=== PATIENT | male | born 1980 | race Two or more races ===

== ENCOUNTER → 2019-12-25 08:59 | Outpatient (BNVA) | payer MEDICAID, SELFPAY | PROVIDERS: PCP Family Medicine; Referring Provider Family Medicine; Visit Provider Nurse Practitioner Family | DX: G47.9 Sleep disorder, unspecified (principal); R06.83 Snoring; R07.9 Chest pain, unspecified; Z79.899 Other long term (current) drug therapy | CPT/HCPCS: 99202 ==

== ENCOUNTER → 2020-03-25 20:42 | Outpatient (REF) | payer MEDICAID, SELFPAY | LOC: HO.SL 20:42 | PROVIDERS: Visit Provider Nurse Practitioner Family | DX: G47.33 Obstructive sleep apnea (adult) (pediatric) (principal); R06.83 Snoring; G25.81 Restless legs syndrome | CPT/HCPCS: 95810 ==

== ENCOUNTER → 2020-04-08 10:54 | Outpatient (BNVA) | payer MEDICAID, SELFPAY | PROVIDERS: Visit Provider Nurse Practitioner Family ==

== ENCOUNTER 2020-05-20 14:34 | Outpatient (REF) | payer MEDICAID, SELFPAY ==
[2020-05-21 11:14] LABS: SARS COV2 PCR INHOUSE NEGATIVE (Negative)
== END 2020-05-20 14:35 | disposition home or self-care (01) ==
LOC: HO.LAB 14:34
PROVIDERS: Visit Provider Internal Medicine
DX: Z20.822 Contact with and (suspected) exposure to COVID-19 (principal)
CPT/HCPCS: C9803; U0003

== ENCOUNTER 2020-05-27 12:58 | Outpatient (REF) | payer MEDICAID, SELFPAY ==
[2020-05-27 13:22] LABS: COVID-19 Test Positive (Negative); IDNOW Serial# 55D5AD1C
== END 2020-05-27 12:59 | disposition home or self-care (01) ==
LOC: HO.LAB 12:58
PROVIDERS: Visit Provider Internal Medicine
DX: Z20.822 Contact with and (suspected) exposure to COVID-19 (principal)
CPT/HCPCS: 36415; 87635; C9803

== ENCOUNTER 2020-06-05 15:17 | Outpatient (REF) | payer MEDICAID, SELFPAY | END 2020-06-05 15:18 | disposition home or self-care (01) | LOC: HO.LAB 15:17 | PROVIDERS: Visit Provider Internal Medicine | DX: Z20.822 Contact with and (suspected) exposure to COVID-19 (principal) | CPT/HCPCS: C9803; U0003; U0005 ==

== ENCOUNTER → 2020-07-07 19:51 | Outpatient (REF) | payer MEDICAID, SELFPAY | LOC: HO.SL 19:51 | PROVIDERS: Visit Provider Nurse Practitioner Family | DX: G47.33 Obstructive sleep apnea (adult) (pediatric) (principal) | CPT/HCPCS: 95811 ==

== ENCOUNTER 2020-07-15 13:16 | Outpatient (REF) | payer MEDICAID, SELFPAY | END 2020-07-15 13:17 | disposition home or self-care (01) | LOC: HO.US 13:16 | PROVIDERS: Visit Provider Family Medicine | DX: Z13.89 Encounter for screening for other disorder (principal) ==

== ENCOUNTER → 2020-09-16 13:26 | Outpatient (BNVA) | payer MEDICAID, SELFPAY | PROVIDERS: PCP Emergency Medicine; Visit Provider Surgery Vascular Surgery | DX: I83.11 Varicose veins of right lower extremity with inflammation (principal) | CPT/HCPCS: 99202 ==

== ENCOUNTER 2020-10-28 13:01 | Outpatient (REF) | payer MEDICAID, SELFPAY ==
--- NOTE | ~2020-10-28 | US_ITS ---
EXAMINATION: BILATERAL LOWER EXTREMITY VENOUS ULTRASOUND (REFLUX EXAM) CLINICAL INDICATION: Lower extremity varicose veins. COMPARISON: None. TECHNIQUE: Color flow triplex imaging and compression Doppler was performed to evaluate both the deep and the superficial systems bilaterally. To evaluate the superficial system, the examination was performed in the upright position. Color-flow Doppler ultrasound and compression ultrasound were utilized. In addition, maneuvers were utilized to demonstrate reflux. FINDINGS: 1. DEEP VENOUS ULTRASOUND OF THE RIGHT LOWER EXTREMITY: Common Femoral Vein: Compressible, normal respiratory variation and augmented flow. Femoral vein: Compressible, normal color flow and augmentation. Popliteal Vein: Compressible, normal augmentation. Deep Reflux: There is no evidence of reflux in the deep system in either the common femoral vein or the popliteal vein. There is no evidence of a Joseph's cyst. 2. SUPERFICIAL ULTRASOUND WITH DOPPLER OF RIGHT LOWER EXTREMITY GREAT SAPHENOUS VEIN: The great saphenous vein ranges in size from 0.3 cm to 0.9 cm at the junction. There is no evidence of reflux. DUPLICATED GREAT SAPHENOUS VEIN: Lateral, 0.4 cm, no reflux. SMALL SAPHENOUS VEIN: 0.4 cm throughout, no evidence of reflux. VEIN OF GIACOMINI: None imaged. PERFORATORS: Proximal calf, 0.2 cm, no reflux. VARICOSITIES: None imaged. 3. DEEP VENOUS ULTRASOUND OF THE LEFT LOWER EXTREMITY: Common Femoral Vein: Compressible, normal respiratory variation and augmented flow. Femoral vein: Compressible, normal color flow and augmentation. Popliteal Vein: Compressible, normal augmentation. Deep Reflux: There is no evidence of reflux in the deep system in either the common femoral vein or the popliteal vein. There is no evidence of a Joseph's cyst. 4. SUPERFICIAL ULTRASOUND WITH DOPPLER OF LEFT LOWER EXTREMITY GREAT SAPHENOUS VEIN: The great saphenous vein ranges in size from 0.2 cm to 0.9 cm at the junction. There is segmental reflux below the knee up to 1.1 seconds. DUPLICATED GREAT SAPHENOUS VEIN: Medial, 0.3 cm, no reflux. SMALL SAPHENOUS VEIN: 0.4 cm in diameter throughout, no evidence of reflux. VEIN OF GIACOMINI: None imaged. PERFORATORS: [place], 0.1 cm, no reflux. Distal calf, 0.2 cm, no reflux. VARICOSITIES: Proximal calf, 0.3 cm, greater than 1.3 seconds of reflux. Distal calf, 0.3 cm, no evidence of reflux. US/US venous duplex LE BI IMPRESSION: 1. Segmental reflux within the left great saphenous vein below the knee. 2. No evidence of right great saphenous venous insufficiency. 3. Small saphenous venous insufficiency involving either leg. 4. Left lower extremity varicosities as above. 5. No evidence of DVT or deep venous insufficiency.
== END 2020-10-28 13:02 | disposition home or self-care (01) ==
LOC: HO.US 13:01
PROVIDERS: PCP Family Medicine; Visit Provider Surgery Vascular Surgery
DX: I83.893 Varicose veins of bilateral lower extremities with other complications (principal); I83.11 Varicose veins of right lower extremity with inflammation
CPT/HCPCS: 93970

== ENCOUNTER → 2020-11-11 13:05 | Outpatient (BNVA) | payer MEDICAID, SELFPAY | PROVIDERS: PCP Emergency Medicine; Referring Provider Family Medicine; Visit Provider Surgery Vascular Surgery | DX: I83.11 Varicose veins of right lower extremity with inflammation (principal); I89.0 Lymphedema, not elsewhere classified | CPT/HCPCS: 99212 ==

== ENCOUNTER → 2021-09-17 14:22 | Outpatient (BNVA) | payer MEDICAID, SELFPAY | PROVIDERS: PCP Emergency Medicine; Visit Provider Nurse Practitioner Family | DX: G47.33 Obstructive sleep apnea (adult) (pediatric) (principal); Z99.89 Dependence on other enabling machines and devices | CPT/HCPCS: 99212 ==

== ENCOUNTER 2021-11-27 15:13 | Outpatient (REF) | payer MEDICAID, SELFPAY ==
[2021-11-27 15:30] LABS: MANUAL DIFF FLAG NO
[2021-11-27 16:13] LABS: Basophils Absolute Auto 0.1 X10*3/uL (0.0-0.2); Basophils Percent Auto 0.8 % (0-2); Eosinophils Absolute Auto 0.5 X10*3/uL (0.0-0.4); Eosinophils Percent Auto 5.2 % (0-4); Hematocrit 37.8 % (42.0-52.0); Hemoglobin 12.5 g/dl (14.0-18.0); Imm Gran Abs Auto 0.06 X10*3/uL (0.00-0.03); Imm Gran Pct Auto 0.7 % (0.0-0.4); Lymphocytes Absolute Auto 1.7 X10*3/uL (1.2-4.9); Lymphocytes Percent Auto 18.5 % (20-40); Mean Corpuscular HGB Conc 33.1 g/dl (31.0-36.0); Mean Corpuscular Hemoglobin 29.5 pg (27.0-33.0); Mean Corpuscular Volume 89.2 fL (80.0-98.0); Mean Platelet Volume 10.1 fL (9.4-12.4); Monocytes Absolute Auto 0.8 X10*3/uL (0.1-1.2); Monocytes Percent Auto 8.5 % (2-11); Neutrophils Percent Auto 66.3 % (45-73); Platelet Count 309 X10*3/uL (160-400); Red Blood Count 4.24 X10*6/uL (4.60-5.80); Red Cell Distribution Width 12.3 % (11.0-16.0); White Blood Count 9.1 X10*3/uL (4.8-10.8)
[2021-11-27 16:14] LABS: Alanine Aminotransferase 40 U/L (0-40); Albumin Level 4.4 g/dL (3.5-5.0); Alkaline Phosphatase 107 U/L (39-117); Anion Gap 14 (12-20); Aspartate Amino Transferase 37 U/L (5-37); Bilirubin Total 0.3 mg/dL (0.0-1.0); Blood Urea Nitrogen 13 mg/dL (9-16); Calcium 9.7 mg/dL (8.4-10.2); Carbon Dioxide 26 mmol/L (22-29); Chloride 103 mmol/L (96-108); Estimated Average Glucose 137 mg/dL; Estimated Glomerular Filt Rate > 60; Glucose Random 112 mg/dL (60-115); Hemoglobin A1c % 6.4 %; Potassium 4.1 mmol/L (3.3-5.1); Sodium 139 mmol/L (135-145); Total Protein 7.6 g/dL (6.5-8.0)
[2021-11-27 17:01] LABS: Barbiturates, Urine Not Detected (Not Detect); Benzodiazepines Screen Urine Not Detected (Not Detect); Cannabinoid Screen Urine Not Detected (Not Detect); Fentanyl, urine POSITIVE (Not Detect); Opiate Screen Urine POSITIVE (Not Detect); Phencyclidine Screen Urine Not Detected (Not Detect)
[2021-11-27 17:14] LABS: Amphetamine Screen Urine Not Detected (Not Detect); Cocaine Screen Urine POSITIVE (Not Detect)
[2021-11-29 00:07] LABS: CRP High Sensitivity 6.2 mg/L
[2021-12-02 22:13] LABS: Cotinine, U 281 ng/mL; Nicotine, U 61 ng/mL
== END 2021-11-27 15:14 | disposition home or self-care (01) ==
LOC: HO.LAB 15:13
PROVIDERS: Visit Provider Surgery
DX: F10.20 Alcohol dependence, uncomplicated (principal); F11.20 Opioid dependence, uncomplicated; F17.200 Nicotine dependence, unspecified, uncomplicated; G47.33 Obstructive sleep apnea (adult) (pediatric); I83.11 Varicose veins of right lower extremity with inflammation; I89.0 Lymphedema, not elsewhere classified; K42.9 Umbilical hernia without obstruction or gangrene; R07.9 Chest pain, unspecified; E11.9 Type 2 diabetes mellitus without complications; Z71.6 Tobacco abuse counseling
CPT/HCPCS: 80053; 80307; 80323; 83036; 84134; 85025; 86141; 99202

== ENCOUNTER → 2021-12-28 13:08 | Outpatient (BNVA) | payer MEDICAID, SELFPAY | PROVIDERS: PCP Registered Nurse; Visit Provider Surgery Vascular Surgery | DX: M79.606 Pain in leg, unspecified (principal) | CPT/HCPCS: 99212 ==

== ENCOUNTER → 2022-02-04 13:00 | Outpatient (BNVA) | payer MEDICAID, SELFPAY | PROVIDERS: PCP Registered Nurse; Visit Provider Surgery | DX: D64.9 Anemia, unspecified (principal); E11.9 Type 2 diabetes mellitus without complications; F11.20 Opioid dependence, uncomplicated; F10.20 Alcohol dependence, uncomplicated; G47.33 Obstructive sleep apnea (adult) (pediatric); F17.200 Nicotine dependence, unspecified, uncomplicated; Z99.89 Dependence on other enabling machines and devices | CPT/HCPCS: 99212 ==

== ENCOUNTER 2022-03-08 12:06 | Emergency (ER) | payer MEDICAID, SELFPAY ==
--- NOTE | ~2022-03-08 | XR_ITS ---
EXAMINATION: XR CHEST CLINICAL INFORMATION: Wheezing and chest tightness COMPARISON: Chest radiograph and chest CT 08/31/2019 TECHNIQUE: Frontal view of the chest was obtained. FINDINGS: Heart size normal. There is no gross CHF. No pleural effusions are seen. In the right midlung, there is a new ovoid opacity seen, likely atelectasis. No gross consolidations with air bronchograms are seen. Some mild coarse reticular markings are seen similar to the prior chest CT. XR/XR chest 1V IMPRESSION: No acute intrathoracic disease. Right midlung atelectasis.
[2022-03-08 12:11] VITALS: BP 137/114; PULSE 103; RESP 24; TEMP 36.8; O2SAT 95; BMI 35.8
--- NOTE | 2022-03-08 12:17 | ECG_ITS ---
Test Reason : CP Blood Pressure : / mmHG Vent. Rate : 088 BPM Atrial Rate : 088 BPM P-R Int : 134 ms QRS Dur : 104 ms QT Int : 390 ms P-R-T Axes : 065 -05 056 degrees QTc Int : 471 ms Normal sinus rhythm Nonspecific ST abnormality Abnormal ECG When compared with ECG of 31-AUG-2019 04:04, No significant change was found Referred By: Ryan Garcia Electronically Signed By:STEFANY CABEZAS MD
--- NOTE | 2022-03-08 12:17 | ED_ITS ---
HPI - General Adult General Chief complaint: Dyspnea <MAMTA Lira - Last Filed: 03/08/22 19:25> Stated complaint: Diff Breathing Asthma Chest Discomfort <MAMTA Lira - Last Filed: 03/08/22 19:25> Time Seen by Provider: 03/08/22 12:36 <MAMTA Lira - Last Filed: 03/08/22 19:25> Source: patient, family and historic interpreter <Ana Vlileda MD - Last Filed: 03/08/22 14:23> Mode of arrival: ambulatory <Ana Villeda MD - Last Filed: 03/08/22 14:23> Limitations: no limitations <Ana Villeda MD - Last Filed: 03/08/22 14:23> History of Present Illness HPI narrative: 41-year-old male history of asthma came in for evaluation of nasal congestion and shortness of breath. No recent exposure to a sick contact. No fever, no chills. No recent travel, no lower extremity swelling or tenderness. <Ana Villeda MD - Last Filed: 03/08/22 14:23> Related Data Home medications: Home Medications Medication Instructions Recorded Confirmed pyridoxine (vitamin B6) 50 mg 50 mg PO DAILY 12/25/19 02/04/22 tablet thiamine HCl (vitamin B1) 100 mg 100 mg PO DAILY 12/25/19 02/04/22 tablet aspirin 81 mg chewable tablet 1 tab PO DAILY 11/27/21 02/04/22 atorvastatin 40 mg tablet 40 mg PO DAILY 11/27/21 02/04/22 cholecalciferol (vitamin D3) 50 50 mcg PO DAILY 11/27/21 02/04/22 mcg (2,000 unit) tablet furosemide 20 mg tablet 20 mg PO DAILY 11/27/21 02/04/22 losartan 50 mg tablet 50 mg PO DAILY 11/27/21 02/04/22 metformin 500 mg tablet 500 mg PO 11/27/21 02/04/22 Previous Rx's Medication Instructions Recorded albuterol sulfate 90 mcg/actuation 1 puff inhalation QID PRN 03/08/22 aerosol inhaler shortness of breath or wheezing #8.5 grams azithromycin 250 mg tablet See Rx Instructions PO .COMPLEX #6 03/08/22 (Zithromax Z-Eleno) tabs oxymetazoline 0.05 % nasal spray 2 spray intranasal Q12H PRN nasal 03/08/22 (Afrin Sinus (oxymetazoline)) congestion 3 days #22 mL prednisone 20 mg tablet 20 mg PO BID #10 tabs 03/08/22 <MAMTA Lira - Last Filed: 03/08/22 19:25> Allergies/adverse reactions: Allergies Allergy/AdvReac Type Severity Reaction Status Date / Time No Known Allergies Allergy Verified 02/04/22 13:09 <MAMTA Lira - Last Filed: 03/08/22 19:25> Review of Systems Review of Systems: All other systems are reviewed and are negative Constitutional: Reports as per HPI and Reports no additional constitutional complaints Eyes: Reports as per HPI and Reports no additional eye complaints Reports system reviewed and no additional complaints, except as documented Cardiovascular: Reports as per HPI and Reports no additional cardiovascular complaints Respiratory: Reports as per HPI and Reports no additional respiratory complaints Gastrointestinal: Reports as per HPI and Reports no additional gastrointestinal complaints Genitourinary: Reports no additional female genitourinary complaints Musculoskeletal: Reports no additional musculoskeletal complaints Skin/Breast: Reports system reviewed and no additional complaints, except as docu Psychiatric: Reports no additional psychiatric complaints Endocrine: Reports no additional endocrine complaints Hematologic/Lymphatic: Reports no additional hematologic/lymphatic complaints Allergic/Immunologic: Reports no additional allergic/immunologic complaints Reports system reviewed and no additional complaints, except as documented and Reports Abnormal speech present <Ana Villeda MD - Last Filed: 03/08/22 14:23> FOR[facility]LY [facility] Past Medical History Medical History: 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 <MAMTA Lira - Last Filed: 03/08/22 19:25> Surgical History: Surgical History History of ankle surgery <MAMTA Lira - Last Filed: 03/08/22 19:25> Social History Social History: Social History Household Members Other:: mom Housing: Apartment Alcohol intake: current Alcohol intake frequency: 3 or more drinks per day Alcohol type: beer and hard liquor Patient Tobacco Use Status: Current everyday Tobacco user Cigarettes Per Day: 2 Years Smoked: 20 Substance Use Type: Crack/Cocaine and Heroin Advance Directives: No Advance Directives Information Provided: Yes <MAMTA Lira - Last Filed: 03/08/22 19:25> Physical Exam ED Vital Signs: Vital Signs - 24 hr 03/08/22 12:11 03/08/22 12:39 03/08/22 14:20 Temperature 98.2 F Pulse Rate 103 H 101 H 89 Respiratory Rate 24 H 18 16 Blood Pressure 137/114 H 130/72 Pulse Oximetry 95 95 Oxygen Delivery Method Room Air Room Air BMI result Body Mass Index 35.8 <MAMTA Lira - Last Filed: 03/08/22 19:25> Vital Signs - 24 hr 03/08/22 12:11 03/08/22 12:39 03/08/22 14:20 Temperature 98.2 F Pulse Rate 103 H 101 H 89 Respiratory Rate 24 H 18 16 Blood Pressure 137/114 H 130/72 Pulse Oximetry 95 95 Oxygen Delivery Method Room Air Room Air BMI result Body Mass Index 35.8 Vital signs have been reviewed as appeared to be correct. Blood pressure normal. Heart rate normal. Respiration rate normal. Temperature normal. Oxygen saturation normal. <Ana Villeda MD - Last Filed: 03/08/22 14:23> Appearance: Alert. Oriented X3. No acute distress. Head: Normal external exam. Normocephalic. Atraumatic. No Dixon signs noted. No raccoon eyes noted Eyes: PERRLA. EOMI. Conjunctiva and sclera normal. Eyelids normal. ENT: TM's Normal. Pharynx normal. Uvula midline. Moist mucous membranes. No trismus noted. No drooling noted. No muffled voice noted. Bilateral maxillary sinuses tenderness with percussion. Neck: Normal inspection. Neck supple. FROM. No adenopathy. Thyroid Normal. No meningeal signs. No neck mass noted. CVS: Normal heart rate and rhythm. Heart sound normal. No murmurs noted. Pulses normal throughout. Respiratory: No respiratory distress. Painless inspiration. Breath sounds normal. No wheezes/rales/rhonchi noted. Chest nontender. No accessory muscle usage noted or decreased air movement noted. Abdomen: Soft and nontender. Bowel sounds normal in all 4 quadrants. No distention noted. No organomegaly noted. No visible injury noted. Back: No CVA tenderness. Full range of motion noted. Skin: Skin warm and dry. Normal skin color. Normal skin turgor. No rashes/lesions/lacerations noted. Extremities: No lower extremity edema. Extremities exhibit normal range of motion. Extremities nontender. Neuro: Oriented X 3. Cranial nerve exam: II-XII are grossly intact No motor deficit. No sensory deficit. Reflexes normal. <Ana Villeda MD - Last Filed: 03/08/22 14:23> Course Course Course Narrative: RME: 41 male presents to the ED for SOB with history of asthma, DM, and ChF with SOB. Lungs is tight with wheezing. Albuterol, prednisone, labs, and EKG ordered. Patient brought in to the ED by charge nurse <MAMTA Lira - Last Filed: 03/08/22 19:25> Reevaluation(s) Reevaluation #1: Patient feels better after was given bronchodilator therapy with prednisone, will discharge the patient with bronchodilator and short course of prednisone with Z-Eleno. <Ana Villeda MD - Last Filed: 03/08/22 14:23> Time: 14:14 <Ana Villeda MD - Last Filed: 03/08/22 14:23> Medications Administered Discontinued Medications Generic Name Dose Route Start Last Admin Trade Name Freq PRN Reason Stop Dose Admin Albuterol Sulfate 2.5 mg/ 0 mg 03/08/22 12:15 03/08/22 12:39 Ipratropium Duncan 0.5 mg INHALE 03/08/22 12:16 2.5 each ONCE ONE Administration Prednisone 60 mg 03/08/22 12:15 03/08/22 12:27 Prednisone 20 Mg Tablet PO 03/08/22 12:16 60 mg ONCE ONE Administration <MAMTA Lira - Last Filed: 03/08/22 19:25> Medications Administered Discontinued Medications Generic Name Dose Route Start Last Admin Trade Name Freq PRN Reason Stop Dose Admin Albuterol Sulfate 2.5 mg/ 0 mg 03/08/22 12:15 03/08/22 12:39 Ipratropium Duncan 0.5 mg INHALE 03/08/22 12:16 2.5 each ONCE ONE Administration Prednisone 60 mg 03/08/22 12:15 03/08/22 12:27 Prednisone 20 Mg Tablet PO 03/08/22 12:16 60 mg ONCE ONE Administration <Ana Villeda MD - Last Filed: 03/08/22 14:23> Medical Decision Making Differential Diagnosis Differential Diagnoses: The differential diagnosis associated with the presentation includes (Viral upper respiratory infection, pneumonia, asthma exacerbation.) <Ana vogt MD - Last Filed: 03/08/22 14:23> Lab Data MDM Lab Attestation statement: I reviewed the patient's lab results. <Ana Villeda MD - Last Filed: 03/08/22 14:23> Result Diagrams: 03/08/22 13:04 03/08/22 13:04 <MAMTA Lira - Last Filed: 03/08/22 19:25> Labs: Lab Results 03/08/22 03/08/22 03/08/22 Range/Units 12:35 13:04 13:04 WBC 9.5 (4.8-10.8) X10*3/uL RBC 4.29 L (4.60-5.80) X10*6/uL Hgb 12.9 L (14.0-18.0) g/dl Hct 38.5 L (42.0-52.0) % MCV 89.7 (80.0-98.0) fL MCH 30.1 (27.0-33.0) pg MCHC 33.5 (31.0-36.0) g/dl RDW 12.8 (11.0-16.0) % Plt Count 210 D (160-400) X10*3/uL MPV 10.2 (9.4-12.4) fL Immature Gran % (Auto) 0.5 H (0.0-0.4) % Neut % (Auto) 63.2 (45-73) % Lymph % (Auto) 19.3 L (20-40) % [place] % (Auto) 9.6 (2-11) % Eos % (Auto) 6.7 H (0-4) % Baso % (Auto) 0.7 (0-2) % Lymph # (Auto) 1.8 (1.2-4.9) X10*3/uL [place] # (Auto) 0.9 (0.1-1.2) X10*3/uL Eos # (Auto) 0.6 H (0.0-0.4) X10*3/uL Baso # (Auto) 0.1 (0.0-0.2) X10*3/uL Abs Immat Gran (auto) 0.05 H (0.00-0.03) X10*3/uL Absolute Neuts (auto) 6.0 (2.0-8.3) x10*3/uL Absolute Nucleated RBC 0.000 (0.0-0.012) X10*3/uL Nucleated RBC % (auto) 0.0 (0.0-0.2) /100WBC PT 10.9 (10.0-13.1) SEC INR 1.0 (0.9-1.1) APTT 29.7 (26.0-36.4) SEC Sodium (135-145) mmol/L Potassium (3.3-5.1) mmol/L Chloride (96-108) mmol/L Carbon Dioxide (22-29) mmol/L Anion Gap (12-20) BUN (9-16) mg/dL Creatinine (0.5-1.4) mg/dL Estim Creat Clear Calc Estimated GFR Random Glucose (60-115) mg/dL Calcium (8.4-10.2) mg/dL Total Bilirubin (0.0-1.0) mg/dL AST (5-37) U/L ALT (0-40) U/L Alkaline Phosphatase (39-117) U/L Troponin I High Sens (<3.5-35.0) ng/L B-Natriuretic Peptide (<100) pg/mL Total Protein (6.5-8.0) g/dL Albumin (3.5-5.0) g/dL Influenza Type A (PCR) NEGATIVE (Negative) Influenza Type B (PCR) NEGATIVE (Negative) RSV RNA Qual (PCR) NEGATIVE (Negative) SARS-CoV-2 RNA (RT-PCR) NEGATIVE (Negative) 03/08/22 03/08/22 03/08/22 Range/Units 13:04 13:04 13:04 WBC (4.8-10.8) X10*3/uL RBC (4.60-5.80) X10*6/uL Hgb (14.0-18.0) g/dl Hct (42.0-52.0) % MCV (80.0-98.0) fL MCH (27.0-33.0) pg MCHC (31.0-36.0) g/dl RDW (11.0-16.0) % Plt Count (160-400) X10*3/uL MPV (9.4-12.4) fL Immature Gran % (Auto) (0.0-0.4) % Neut % (Auto) (45-73) % Lymph % (Auto) (20-40) % [place] % (Auto) (2-11) % Eos % (Auto) (0-4) % Baso % (Auto) (0-2) % Lymph # (Auto) (1.2-4.9) X10*3/uL [place] # (Auto) (0.1-1.2) X10*3/uL Eos # (Auto) (0.0-0.4) X10*3/uL Baso # (Auto) (0.0-0.2) X10*3/uL Abs Immat Gran (auto) (0.00-0.03) X10*3/uL Absolute Neuts (auto) (2.0-8.3) x10*3/uL Absolute Nucleated RBC (0.0-0.012) X10*3/uL Nucleated RBC % (auto) (0.0-0.2) /100WBC PT (10.0-13.1) SEC INR (0.9-1.1) APTT (26.0-36.4) SEC Sodium 137 (135-145) mmol/L Potassium 4.3 (3.3-5.1) mmol/L Chloride 104 (96-108) mmol/L Carbon Dioxide 25 (22-29) mmol/L Anion Gap 12 (12-20) BUN 13 (9-16) mg/dL Creatinine 0.78 (0.5-1.4) mg/dL Estim Creat Clear Calc 158.5 Estimated GFR > 60 Random Glucose 143 H (60-115) mg/dL Calcium 9.1 D (8.4-10.2) mg/dL Total Bilirubin 0.4 (0.0-1.0) mg/dL AST 17 (5-37) U/L ALT 18 (0-40) U/L Alkaline Phosphatase 94 (39-117) U/L Troponin I High Sens < 3.5 (<3.5-35.0) ng/L B-Natriuretic Peptide < 10 (<100) pg/mL Total Protein 7.3 (6.5-8.0) g/dL Albumin 4.1 (3.5-5.0) g/dL Influenza Type A (PCR) (Negative) Influenza Type B (PCR) (Negative) RSV RNA Qual (PCR) (Negative) SARS-CoV-2 RNA (RT-PCR) (Negative) <MAMTA Lira - Last Filed: 03/08/22 19:25> Lab Results 03/08/22 03/08/22 03/08/22 Range/Units 12:35 13:04 13:04 WBC 9.5 (4.8-10.8) X10*3/uL RBC 4.29 L (4.60-5.80) X10*6/uL Hgb 12.9 L (14.0-18.0) g/dl Hct 38.5 L (42.0-52.0) % MCV 89.7 (80.0-98.0) fL MCH 30.1 (27.0-33.0) pg MCHC 33.5 (31.0-36.0) g/dl RDW 12.8 (11.0-16.0) % Plt Count 210 D (160-400) X10*3/uL MPV 10.2 (9.4-12.4) fL Immature Gran % (Auto) 0.5 H (0.0-0.4) % Neut % (Auto) 63.2 (45-73) % Lymph % (Auto) 19.3 L (20-40) % [place] % (Auto) 9.6 (2-11) % Eos % (Auto) 6.7 H (0-4) % Baso % (Auto) 0.7 (0-2) % Lymph # (Auto) 1.8 (1.2-4.9) X10*3/uL [place] # (Auto) 0.9 (0.1-1.2) X10*3/uL Eos # (Auto) 0.6 H (0.0-0.4) X10*3/uL Baso # (Auto) 0.1 (0.0-0.2) X10*3/uL Abs Immat Gran (auto) 0.05 H (0.00-0.03) X10*3/uL Absolute Neuts (auto) 6.0 (2.0-8.3) x10*3/uL Absolute Nucleated RBC 0.000 (0.0-0.012) X10*3/uL Nucleated RBC % (auto) 0.0 (0.0-0.2) /100WBC PT 10.9 (10.0-13.1) SEC INR 1.0 (0.9-1.1) APTT 29.7 (26.0-36.4) SEC Sodium (135-145) mmol/L Potassium (3.3-5.1) mmol/L Chloride (96-108) mmol/L Carbon Dioxide (22-29) mmol/L Anion Gap (12-20) BUN (9-16) mg/dL Creatinine (0.5-1.4) mg/dL Estim Creat Clear Calc Estimated GFR Random Glucose (60-115) mg/dL Calcium (8.4-10.2) mg/dL Total Bilirubin (0.0-1.0) mg/dL AST (5-37) U/L ALT (0-40) U/L Alkaline Phosphatase (39-117) U/L Troponin I High Sens (<3.5-35.0) ng/L B-Natriuretic Peptide (<100) pg/mL Total Protein (6.5-8.0) g/dL Albumin (3.5-5.0) g/dL Influenza Type A (PCR) NEGATIVE (Negative) Influenza Type B (PCR) NEGATIVE (Negative) RSV RNA Qual (PCR) NEGATIVE (Negative) SARS-CoV-2 RNA (RT-PCR) NEGATIVE (Negative) 03/08/22 03/08/22 03/08/22 Range/Units 13:04 13:04 13:04 WBC (4.8-10.8) X10*3/uL RBC (4.60-5.80) X10*6/uL Hgb (14.0-18.0) g/dl Hct (42.0-52.0) % MCV (80.0-98.0) fL MCH (27.0-33.0) pg MCHC (31.0-36.0) g/dl RDW (11.0-16.0) % Plt Count (160-400) X10*3/uL MPV (9.4-12.4) fL Immature Gran % (Auto) (0.0-0.4) % Neut % (Auto) (45-73) % Lymph % (Auto) (20-40) % [place] % (Auto) (2-11) % Eos % (Auto) (0-4) % Baso % (Auto) (0-2) % Lymph # (Auto) (1.2-4.9) X10*3/uL [place] # (Auto) (0.1-1.2) X10*3/uL Eos # (Auto) (0.0-0.4) X10*3/uL Baso # (Auto) (0.0-0.2) X10*3/uL Abs Immat Gran (auto) (0.00-0.03) X10*3/uL Absolute Neuts (auto) (2.0-8.3) x10*3/uL Absolute Nucleated RBC (0.0-0.012) X10*3/uL Nucleated RBC % (auto) (0.0-0.2) /100WBC PT (10.0-13.1) SEC INR (0.9-1.1) APTT (26.0-36.4) SEC Sodium 137 (135-145) mmol/L Potassium 4.3 (3.3-5.1) mmol/L Chloride 104 (96-108) mmol/L Carbon Dioxide 25 (22-29) mmol/L Anion Gap 12 (12-20) BUN 13 (9-16) mg/dL Creatinine 0.78 (0.5-1.4) mg/dL Estim Creat Clear Calc 158.5 Estimated GFR > 60 Random Glucose 143 H (60-115) mg/dL Calcium 9.1 D (8.4-10.2) mg/dL Total Bilirubin 0.4 (0.0-1.0) mg/dL AST 17 (5-37) U/L ALT 18 (0-40) U/L Alkaline Phosphatase 94 (39-117) U/L Troponin I High Sens < 3.5 (<3.5-35.0) ng/L B-Natriuretic Peptide < 10 (<100) pg/mL Total Protein 7.3 (6.5-8.0) g/dL Albumin 4.1 (3.5-5.0) g/dL Influenza Type A (PCR) (Negative) Influenza Type B (PCR) (Negative) RSV RNA Qual (PCR) (Negative) SARS-CoV-2 RNA (RT-PCR) (Negative) <Ana Villeda MD - Last Filed: 03/08/22 14:23> Independent Interpretation I performed an independent interpretation of an: Plain X-Ray (No acute intrathoracic pathology.) <Ana Villeda MD - Last Filed: 03/08/22 14:23> Radiology Impression Discussion of test interpretation with radiology: I have reviewed the radiologist's reading. <Ana Villeda MD - Last Filed: 03/08/22 14:23> Discharge Plan Discharge Clinical Impression: Acute bronchitis, Acute sinusitis <MAMTA Lira - Last Filed: 03/08/22 19:25> Patient Disposition: Home, Self-Care <MAMTA Lira - Last Filed: 03/08/22 19:25> Instructions: Acute Bronchitis (ED) <MAMTA Lira - Last Filed: 03/08/22 19:25> Prescriptions: New albuterol sulfate 90 mcg/actuation HFA aerosol inhaler 1 puff inhalation QID PRN (Reason: shortness of breath or wheezing) Qty: 8.5 0RF azithromycin [Zithromax Z-Eleno] 250 mg tablet See Rx Instructions .ROUTE .COMPLEX Qty: 6 0RF Rx Instructions: For 250 mg dose pack: take 500 mg today (day 1), then 250 mg for 4 days (days 2-5) prednisone 20 mg tablet 20 mg PO BID Qty: 10 0RF oxymetazoline [Afrin Sinus (oxymetazoline)] 0.05 % spray,non-aerosol 2 spray intranasal Q12H PRN (Reason: nasal congestion) 3 Days Qty: 22 0RF No Action pyridoxine (vitamin B6) 50 mg tablet 50 mg PO DAILY thiamine HCl (vitamin B1) 100 mg tablet 100 mg PO DAILY cholecalciferol (vitamin D3) 50 mcg (2,000 unit) tablet 50 mcg PO DAILY furosemide 20 mg tablet 20 mg PO DAILY aspirin 81 mg tablet,chewable 1 tab PO DAILY metformin 500 mg tablet 500 mg PO atorvastatin 40 mg tablet 40 mg PO DAILY losartan 50 mg tablet 50 mg PO DAILY <MAMTA Lira - Last Filed: 03/08/22 19:25> Referrals: [facility] [Primary Care Provider] - <MAMTA Lira - Last Filed: 03/08/22 19:25> Interventions: ED Discharge Assessment Last Done: 03/08/22 14:37 <MAMTA Lira - Last Filed: 03/08/22 19:25> Discharge Date/Time: 03/08/22 14:39 <MAMTA Lira - Last Filed: 03/08/22 19:25>
[2022-03-08] MEDS: predniSONE 20 MG TABLET 60 MG PO (12:27)
[2022-03-08 12:39] VITALS: PULSE 101; RESP 18; O2SAT 96
[2022-03-08 13:11] LABS: MANUAL DIFF FLAG NO
[2022-03-08 13:13] LABS: Basophils Absolute Auto 0.1 X10*3/uL (0.0-0.2); Basophils Percent Auto 0.7 % (0-2); Eosinophils Absolute Auto 0.6 X10*3/uL (0.0-0.4); Eosinophils Percent Auto 6.7 % (0-4); Hematocrit 38.5 % (42.0-52.0); Hemoglobin 12.9 g/dl (14.0-18.0); Imm Gran Abs Auto 0.05 X10*3/uL (0.00-0.03); Imm Gran Pct Auto 0.5 % (0.0-0.4); Lymphocytes Absolute Auto 1.8 X10*3/uL (1.2-4.9); Lymphocytes Percent Auto 19.3 % (20-40); Mean Corpuscular HGB Conc 33.5 g/dl (31.0-36.0); Mean Corpuscular Hemoglobin 30.1 pg (27.0-33.0); Mean Corpuscular Volume 89.7 fL (80.0-98.0); Mean Platelet Volume 10.2 fL (9.4-12.4); Monocytes Absolute Auto 0.9 X10*3/uL (0.1-1.2); Monocytes Percent Auto 9.6 % (2-11); Neutrophils Percent Auto 63.2 % (45-73); Platelet Count 210 X10*3/uL (160-400); Red Blood Count 4.29 X10*6/uL (4.60-5.80); Red Cell Distribution Width 12.8 % (11.0-16.0); White Blood Count 9.5 X10*3/uL (4.8-10.8)
[2022-03-08 13:21] LABS: Prothrombin Time 10.9 SEC (10.0-13.1)
[2022-03-08 13:23] LABS: Partial Thromboplastin Time 29.7 SEC (26.0-36.4)
[2022-03-08 13:30] LABS: Alanine Aminotransferase 18 U/L (0-40); Albumin Level 4.1 g/dL (3.5-5.0); Alkaline Phosphatase 94 U/L (39-117); Anion Gap 12 (12-20); Aspartate Amino Transferase 17 U/L (5-37); Bilirubin Total 0.4 mg/dL (0.0-1.0); Blood Urea Nitrogen 13 mg/dL (9-16); Calcium 9.1 mg/dL (8.4-10.2); Carbon Dioxide 25 mmol/L (22-29); Chloride 104 mmol/L (96-108); Creatinine Clr Calc Pharmacy 158.5; Estimated Glomerular Filt Rate > 60; Glucose Random 143 mg/dL (60-115); Potassium 4.3 mmol/L (3.3-5.1); Sodium 137 mmol/L (135-145); Total Protein 7.3 g/dL (6.5-8.0)
[2022-03-08 13:31] LABS: Influenza A PCR NEGATIVE (Negative); Influenza B PCR NEGATIVE (Negative); Resp Syncy Virus RNA Qual PCR NEGATIVE (Negative); SARS COV2 PCR INHOUSE NEGATIVE (Negative)
[2022-03-08 13:36] LABS: B Type Natriuretic Peptide < 10 pg/mL (<100)
[2022-03-08 13:39] LABS: Troponin-I High Sensitivity < 3.5 ng/L (<3.5-35.0)
[2022-03-08 14:20] VITALS: BP 130/72; PULSE 89; RESP 16; O2SAT 95
== END 2022-03-08 14:39 | disposition home or self-care (01) ==
PROVIDERS: Physician Assistant; Emergency Provider Emergency Medicine
DX: J20.9 Acute bronchitis, unspecified (principal); J01.00 Acute maxillary sinusitis, unspecified; R06.02 Shortness of breath; F17.210 Nicotine dependence, cigarettes, uncomplicated; Z20.822 Contact with and (suspected) exposure to COVID-19; Z20.828 Contact with and (suspected) exposure to other viral communicable diseases
CPT/HCPCS: 0241U; 36415; 71045; 80053; 83880; 84484; 85025; 85610; 85730; 93005; 94640; 99284

== ENCOUNTER 2022-05-11 02:02 | Emergency (ER) | payer MEDICAID, SELFPAY ==
--- NOTE | ~2022-05-11 | XR_ITS ---
EXAMINATION: XR CHEST CLINICAL INFORMATION: Dyspnea COMPARISON: None available. TECHNIQUE: Frontal view of the chest was obtained. FINDINGS: The lungs are well expanded. Patchy opacities of the right mid to lower lung. No pleural effusion or pneumothorax. The cardiomediastinal silhouette is within normal limits. XR/XR chest 1V IMPRESSION: Patchy opacities of the right mid to lower lung could be infectious or inflammatory.
[2022-05-11 02:13] VITALS: BP 138/75; PULSE 107; RESP 20; TEMP 36.9; O2SAT 93; BMI 34.2
--- NOTE | 2022-05-11 02:28 | ECG_ITS ---
Test Reason : SOB Blood Pressure : / mmHG Vent. Rate : 094 BPM Atrial Rate : 094 BPM P-R Int : 134 ms QRS Dur : 110 ms QT Int : 374 ms P-R-T Axes : 074 -18 026 degrees QTc Int : 467 ms Normal sinus rhythm Normal ECG No previous ECGs available Referred By: Generic ED Physician Electronically Signed By:STEFANY CABEZAS MD
[2022-05-11 02:47] LABS: MANUAL DIFF FLAG NO
[2022-05-11 02:55] LABS: Basophils Absolute Auto 0.1 X10*3/uL (0.0-0.2); Basophils Percent Auto 0.6 % (0-2); Eosinophils Percent Auto 8.8 % (0-4); Hematocrit 40.6 % (42.0-52.0); Hemoglobin 13.1 g/dl (14.0-18.0); Imm Gran Abs Auto 0.04 X10*3/uL (0.00-0.03); Imm Gran Pct Auto 0.4 % (0.0-0.4); Lymphocytes Absolute Auto 1.9 X10*3/uL (1.2-4.9); Mean Corpuscular HGB Conc 32.3 g/dl (31.0-36.0); Mean Corpuscular Hemoglobin 29.2 pg (27.0-33.0); Mean Corpuscular Volume 90.4 fL (80.0-98.0); Mean Platelet Volume 10.1 fL (9.4-12.4); Monocytes Absolute Auto 0.8 X10*3/uL (0.1-1.2); Monocytes Percent Auto 7.1 % (2-11); Neutrophils Absolute Auto 7.2 x10*3/uL (2.0-8.3); Neutrophils Percent Auto 66.1 % (45-73); Platelet Count 303 X10*3/uL (160-400); Red Blood Count 4.49 X10*6/uL (4.60-5.80); Red Cell Distribution Width 12.8 % (11.0-16.0)
--- OUTSIDE RECORDS SUMMARY | 2022-05-11 02:59 | XMS_ITS | Continuity of Care Document ---
:1980 Author Organization [facility] Address [address] [place] [id number] Care Team Providers Name Role Phone Mei GARCIA MD, [place] Primary Care Physician Encounter [facility] Date(s): 11/22/19 - 12/22/19 [facility] [address] [place] [id number]- [facility] Attending Physician: Yolanda Hoover Admitting Physician: AdmYolanda ram Referring Physician: AdmtrYolanda Allergies, Adverse Reactions, Alerts Substance Reaction Severity Status NKA Active Immunizations Given and Recorded Vaccine Date Status Refusal Reason pneumococcal 23-valent vaccine 09/08/19 Given Medications cloNIDine 0.1 mg oral tablet 0.1 mg, 1, tablet, By Mouth, 4 times a day, Refills 0, Maintenance, 09/13/19 15:02:00 EDT Start Date: 09/13/19 Status: OrderedFlomax 0.4 mg oral capsule 0.4 mg, 1, capsule, By Mouth, Daily, Refills 0, Maintenance, 09/13/19 14:05:00 EDT Start Date: 09/13/19 Status: Orderedfolic acid 1 mg oral tablet 1 mg, 1, tablet, By Mouth, Daily, Refills 0, Maintenance, 09/13/19 15:02:00 EDT Start Date: 09/13/19 Status: Orderedmethadone 5 mg oral tablet = 65 mg, By Mouth, Daily, 0 Refills, Maintenance, 10/18/19 8:05:00 EDT, Tablet, Partial fill upon patient request Start Date: 10/18/19 Status: OrderedMultivitamin Tablet 1 tablet, By Mouth, Daily, 0 Refills, Maintenance, 09/13/19 15:02:00 EDT, Tablet Start Date: 09/13/19 Status: OrderedPyridoxine Tablet 50 mg, By Mouth, Daily, Refills 0, Maintenance, 09/13/19 15:03:00 EDT Start Date: 09/13/19 Status: Orderedthiamine 100 mg oral tablet 100 mg, 1, tablet, By Mouth, 2 times a day, Refills 0, Maintenance, 09/13/19 15:03:00 EDT Start Date: 09/13/19 Status: OrderedtraZODone 50 mg oral tablet 50 mg, 1, tablet, By Mouth, Daily at bedtime, Refills 0, Maintenance, 09/13/19 14:05:00 EDT Start Date: 09/13/19 Status: OrderedWhile on antibiotic treatment - obtain weekly CBC with diff and CMP - fax to [phone] While on antibiotic treatment - obtain weekly CBC with diff and CMP - fax to [phone], See Instructions, # 1 each, Refills 0, Tot. Refills 0, Maintenance, CBC with differential and complete metabolic panel weekly, fax to [phone], attn Dr. Moreno ... Start Date: 09/17/19 Status: Ordered Problem List Condition Effective Dates Status Health Status Informant Opioid use disorder(Confirmed) Active Alcohol use disorder, severe, Active dependence(Confirmed)
--- OUTSIDE RECORDS SUMMARY | 2022-05-11 02:59 | XMS_ITS | Continuity of Care Document ---
:1980 Author Organization [facility] Address [address] [place] [phone]- Care Team Providers Name Role Phone Mei GARCIA MD, [place] Primary Care Physician Encounter [facility] [id number] Date(s): 08/31/19 - 09/01/[address] [address] Diagnosis Renal colic (Final) - 09/01/19 Discharge Disposition: A-D/C Home Attending Physician: Kaleb Hartley DO Admitting Physician: Kaleb Hartley DO Referring Physician: Not on Staff, Referring MD Allergies, Adverse Reactions, Alerts Substance Reaction Severity Status NKA Active Medications Flomax 0.4 mg oral capsule 0.4 mg, 1, capsule, By Mouth, Daily, # 14 capsule, Refills 0, Tot. Refills 0, Maintenance, 09/01/19 10:59:00 EDT, Route to Pharmacy Electronically, [facility] Start Date: 09/01/19 Status: Orderedibuprofen 400 mg oral tablet 400 mg, 1, tablet, By Mouth, Every 4 hours, PRN, for 14 days, # 84 tablet, Refills 0, Tot. Refills 0, Acute 09/15/19 11:00:00 EDT, for pain, 09/01/19 11:00:00 EDT, Route to Pharmacy Electronically, [facility] Start Date: 09/01/19 Stop Date: 09/15/19 Status: Orderedondansetron 4 mg oral tablet, disintegrating 1 tablet = 4 mg, By Mouth, Every 8 hours, PRN Nausea & Vomiting, # 10 tablet, 0 Refills, Maintenance, 09/01/19 10:59:00 EDT, Tablet, [facility] Start Date: 09/01/19 Status: OrderedTylenol Extra Strength 500 mg oral tablet 2 tablet = 1,000 mg, By Mouth, 3 times a day, PRN as needed for fever, for 14 days, # 84 tablet, 0 Refills, Acute 09/15/19 11:00:00 EDT, 09/01/19 11:00:00 EDT, Tablet, [facility] Start Date: 09/01/19 Stop Date: 09/15/19 Status: Ordered Results Orders for Microbiology Reports Name Date Blood Culture 09/01/19 Blood Culture #2 09/01/19 Microbiology Reports TEST:Blood Culture STATUS:Unauthenticated BODY SITE: SOURCE:Blood COLLECTED DATE/TIME:09/01/19 1:36 AMBlood Culture SPECIMEN DESCRIPTION : BLOOD R HAND SPECIAL REQUESTS : CRITICAL VALUE CALLED AND VERIFIED BY READBACK FOR: GRAM POSITIVE COCCI CALLED TO LUPE [id number] ER ON 09/02/19 0013 BY TECH [id number] CULTURE : GRAM POSITIVE COCCI REPORT STATUS : PRELIMINARY REPORT TEST:Blood Culture, Second Order STATUS:Unauthenticated BODY SITE: SOURCE:Blood COLLECTED DATE/TIME:09/01/19 1:36 AMBlood Culture, Second Order SPECIMEN DESCRIPTION : BLOOD LEFT HAND SPECIAL REQUESTS : CRITICAL VALUE CALLED AND VERIFIED BY READBACK FOR: GRAM [place] [id number] ER ON 09/01/194 BY TECH 5777 CULTURE : GRAM POSITIVE COCCI S. aureus was identified by multi-plex PCR. MecA NOT detected. The absence of the mecA gene is associated with susceptibility to methicillin (MSSA). REPORT STATUS : PRELIMINARY REPORT Radiology Reports Exam Date Time Procedure Performing Provider Status 09/01/19 1:34 AM Chest Portable Magdalena Shah; Auth (Verified) Notes:(Chest Portable) Reason For Exam: Shortness of BreathRESULT: Chest Portable Examination: Portable chest performed on 09/01/2019. History: Shortness of breath. Findings: A frontal view of the chest is submitted without comparison. The cardiac and mediastinal silhouettes are within normal limits. The lungs are clear. Osteophyte formation within the thoracic spine is demonstrated. IMPRESSION: There is no acute cardiopulmonary disease. WSN: [id number] Ordering Physician: Deyvi Nicholas Dictated By: Darcy Devine MD Dictated Date/Time: 09/01/19 10:39 a Reviewed By: Darcy Devine MD Signed By: Darcy Devine MD Signed Date/Time: 09/01/19 10:39 am Transcribed By: MAG Transcribed Date/Time: 09/01/19 10:38 am Vital Signs Most recent to oldest 1 2 3 [Reference Range]: Oxygen Saturation [94-100 %] 99 % 98 % 100 % (09/01/19 10:21 AM) (09/01/19 8:40 AM) (09/01/19 8: 14 AM) Pulse Rate [55-90 bpm] 90 bpm 85 bpm 76 bpm (09/01/19 10:21 AM) (09/01/19 8:40 AM) (09/01/19 8: 14 AM) Blood Pressure [90-138/55-84 148/91 mm Hg 149/81 mm Hg 133 /80 mm Hg mm Hg] *H* *H* (09/01/19 8:14 AM ) (09/01/19 10:21 AM) (09/01/19 8:40 AM) Respiratory Rate [16-30 19 br/min 16 br/min 17 br/mi n br/min] (09/01/19 10:21 AM) (09/01/19 8:40 AM) (09/01/19 8: 14 AM) Temperature [96.8-100.4 DegF] 98.4 DegF 98.3 DegF 99 .9 DegF (09/01/19 10:21 AM) (09/01/19 5:31 AM) (08/31/19 10 :52 PM) Mode of Delivery (Oxygen) Room air Room air Room a ir (09/01/19 10:21 AM) (09/01/19 8:40 AM) (09/01/19 8: 14 AM) Blood pressure sites Arm, right Arm, left Arm, right (09/01/19 10:21 AM) (09/01/19 8:40 AM) (08/31/19 10 :52 PM) Temperature Route Oral Oral Oral (09/01/19 10:21 AM) (09/01/19 5:31 AM) (08/31/19 10 :52 PM)
--- OUTSIDE RECORDS SUMMARY | 2022-05-11 02:59 | XMS_ITS | Continuity of Care Document ---
:1980 Author Organization [facility] Address [address] [place] [address]- Care Team Providers Name Role Phone Mei GARCIA MD, [place] Primary Care Physician [phone] Encounter [facility] ACCT R [id number] Date(s): 10/10/19 - 11/22/19 [facility] [address] [place] [address]- [facility] Attending Physician: Reese Moreno MD Admitting Physician: Reese Moreno MD Referring Physician: Mei GARCIA MD, Stanley Allergies, Adverse Reactions, Alerts Substance Reaction Severity [...] with diff and CMP - fax to [phone] While on antibiotic treatment - obtain weekly CBC with diff and CMP - fax to [phone], See Instructions, # 1 each, Refills 0, Tot. Refills 0, Maintenance, CBC with differential and complete metabolic panel weekly, fax to [phone], attn Dr. Moreno ... Start Date: 09/17/19 Status: Ordered Problem List Condition Effective Dates Status Health Status Informant Opioid use disorder(Confirmed) Active Alcohol use disorder, severe, Active dependence(Confirmed)
--- OUTSIDE RECORDS SUMMARY | 2022-05-11 02:59 | XMS_ITS | Continuity of Care Document ---
:1980 Author Organization [facility] Address [address] [place] [address]- Care Team Providers Name Role Phone Mei GARCIA MD, [place] Primary Care Physician Encounter [facility] Date(s): 10/05/19 - 10/18/[address] [address]- [facility] Encounter Diagnosis Bacteremia (Final) - 10/05/19 Discharge Disposition: A-Transfer SNF Attending Physician: Lalitha Galeana MD Admitting Physician: Alejandro Roberts MD Referring Physician: Not on Staff, Referring MD [...] 15:02:00 EDT, Tablet Start Date: 09/13/19 Status: Orderedpiperacillin-tazobactam 3 gm-0.375 gm/50 ml intravenous solution = 3.375 Gm, IV Infusion, Every 8 hours, for 7 days, # 500 mL, 0 Refills, Acute 10/25/19 8:07:00 EDT,10/18/19 8:07:00 EDT Start Date: 10/18/19 Stop Date: 10/25/19 Status: OrderedPyridoxine Tablet 50 mg, By Mouth, [...] with diff and CMP - fax to [phone] While on antibiotic treatment - obtain weekly CBC with diff and CMP - fax to [phone], See Instructions, # 1 each, Refills 0, Tot. Refills 0, Maintenance, CBC with differential and complete metabolic panel weekly, fax to [phone], attn Dr. Moreno ... Start Date: 09/17/19 Status: Ordered Problem List Condition Effective Dates Status Health Status Informant Opioid use disorder(Confirmed) Active Alcohol use disorder, severe, Active dependence(Confirmed) Results Orders for Microbiology Reports Name Date Blood Culture 10/05/19 Blood Culture #2 10/05/19 Microbiology Reports TEST:Blood Culture, Second Order STATUS:Auth (Verified) BODY SITE: SOURCE:Blood COLLECTED DATE/TIME:10/05/19 12:40 PMBlood Culture, Second Order SPECIMEN DESCRIPTION : BLOOD NO SITE SPECIAL REQUESTS : NONE CULTURE : NO GROWTH 5 DAYS. REPORT STATUS : FINAL 10/10/2019TEST:Blood Culture STATUS:Auth (Verified) BODY SITE: SOURCE:Blood COLLECTED DATE/TIME:10/05/19 12:14 PMBlood Culture SPECIMEN DESCRIPTION : BLOOD RIGHTAC SPECIAL REQUESTS : NONE CULTURE : NO GROWTH 5 DAYS. REPORT STATUS : FINAL 10/10/2019 Vital Signs Most recent to oldest 1 2 3 [Reference Range]: Height 178 cm 178 cm 178 cm (10/18/19 9:45 AM) (10/17/19 7:00 PM) (10/17/19 7:3 3 AM) Weight 108 kg 108.9 kg (10/05/19 4:17 PM) (10/05/19 3:41 PM) Oxygen Saturation [94-100 %] 98 % 99 % 100 % (10/18/19 9:45 AM) (10/17/19 7:00 PM) (10/17/19 7:3 3 AM) Pulse Rate [55-90 bpm] 112 bpm 99 bpm 109 bpm *H* *H* *H* (10/18/19 9:45 AM) (10/17/19 7:00 PM) (10/17/19 7:3 3 AM) Body Mass Index [18.5-24.99] 34.09 34.37 *>HHI* *>HHI* (10/05/19 4:17 PM) (10/05/19 3:41 PM) Blood Pressure [90-138/55-84 mm 130/80 mm Hg 113/68 mm Hg 122/78 mm Hg Hg] (10/18/19 9:45 AM) (10/17/19 7:00 PM) (10/17/19 7:3 3 AM) Respiratory Rate [16-30 br/min] 18 br/min 18 br/min 18 br/min (10/18/19 9:45 AM) (10/18/19 9:37 AM) (10/17/19 7:0 0 PM) Temperature [96.8-100.4 DegF] 98.2 DegF 98.5 DegF 99 .0 DegF (10/18/19 9:45 AM) (10/17/19 7:00 PM) (10/17/19 7:3 3 AM) Mode of Delivery (Oxygen) Room air Room air Room a ir (10/18/19 9:45 AM) (10/17/19 7:00 PM) (10/17/19 7:3 3 AM) Blood pressure sites Arm, right Arm, right Arm, right (10/18/19 9:45 AM) (10/17/19 7:00 PM) (10/17/19 7:3 3 AM) Temperature Route Oral Oral Oral (10/18/19 9:45 AM) (10/17/19 7:00 PM) (10/17/19 7:3 3 AM) Dry Weight 108.9 kg 109.3 kg 109.3 kg (10/05/19 3:41 PM) (10/05/19 2:02 PM) (10/04/19 4:0 7 PM) Weight Obtained Via Bed scale Bed scale (10/05/19 4:17 PM) (10/05/19 3:41 PM) Dry Weight Obtained Via Bed scale (10/05/19 3:41 PM)
--- OUTSIDE RECORDS SUMMARY | 2022-05-11 02:59 | XMS_ITS | Continuity of Care Document ---
:1980 Author Organization [facility] Address [address] [place] [address]- Care Team Providers Name Role Phone Mei GARCIA MD, [place] Primary Care Physician [place] [facility] [place] 09/27[place]19 - 12/08/19 [facility] [address] [place] [address]- [facility] Attending Physician: Reese Moreno MD Admitting Physician: [...] with diff and CMP - fax to [phone] While on antibiotic treatment - obtain weekly CBC with diff and CMP - fax to [phone], See Instructions, # 1 each, Refills 0, Tot. Refills 0, Maintenance, CBC with differential and complete metabolic panel weekly, fax to [phone], attn Dr. Moreno ... Start Date: 09/17/19 Status: Ordered Problem List Condition Effective Dates Status Health Status Informant Opioid use disorder(Confirmed) Active Alcohol use disorder, severe, Active dependence(Confirmed)
--- OUTSIDE RECORDS SUMMARY | 2022-05-11 02:59 | XMS_ITS | Continuity of Care Document ---
:1980 Author Organization [facility] Address [address] [place] [address]- Care Team Providers Name Role Phone Mei GARCIA MD, [place] Primary Care Physician Encounter [facility] Date(s): 10/23/19 - 12/22/19 [facility] [address] [place] [address]- [facility] Attending Physician: Reese Moreno MD Admitting Physician: [...] with diff and CMP - fax to [phone] While on antibiotic treatment - obtain weekly CBC with diff and CMP - fax to [phone], See Instructions, # 1 each, Refills 0, Tot. Refills 0, Maintenance, CBC with differential and complete metabolic panel weekly, fax to [phone], attn Dr. Moreno ... Start Date: 09/17/19 Status: Ordered Problem List Condition Effective Dates Status Health Status Informant Opioid use disorder(Confirmed) Active Alcohol use disorder, severe, Active dependence(Confirmed)
--- OUTSIDE RECORDS SUMMARY | 2022-05-11 02:59 | XMS_ITS ---
:1980 Author Care Team Providers Name Role Phone [facility] ([facility]) OTHER [phone] Allergies Code Code System Name Reaction Severity Status Onset NKDA ? Medications No Medications Reported Notes: Med list reviewed, may not be u p to date, see MAR Problems Name Status Onset Date Source ? Alcohol Dependence Active 09/18/2019 ? Opioid Dependence Active 09/18/2019 ? Insomnia Active 09/18/2019 ? Calculus of Kidney and Ureter Active 09/18/2019 ? Acute Osteomyelitis of Thoracic Spine Active 09/18/2019 ? Procedures None recorded. Results Lab Results None recorded. Past Encounters None recorded. Social History Tobacco Smoking Status Current Every Day Smoker Vaccine List None recorded. Plan of Care Reminders Provider Appointments None recorded. ? ? Lab None recorded. ? ? Referral None recorded. ? ? Procedures None recorded. ? ? Surgeries None recorded. ? ? Imaging None recorded. ? ? Vitals 09/19/2019 10:19AM Telemed Admitting H&P Blood Pressure 148/88 mm[Hg] 09/18/2019 08:35AM Initial Intake Note Blood Pressure 115/68 mm[Hg]
--- OUTSIDE RECORDS SUMMARY | 2022-05-11 02:59 | XMS_ITS | Continuity of Care Document ---
:1980 Author Organization [facility] Address [address] [place] [address]- Care Team Providers Name Role Phone Mei GARCIA MD, [place] Primary Care Physician [phone] [place] [facility] [place] 09/04/19 - 09/17/[address] [address] [facility] Encounter Diagnosis MSSA bacteremia (Final) - 09/03/19 MSSA bacteremia (Final) - 09/05/19 Discharge Disposition: A-Transfer SNF Attending Physician: Rona Vogel MD Admitting Physician: Papa Sharma MD Referring Physician: Not on Staff, Referring [...] 15:02:00 EDT Start Date: 09/13/19 Status: Orderedmethadone 10 mg/5 mL oral solution 25 mL = 50 mg, By Mouth, Daily, 0 Refills, Maintenance, 09/13/19 12:23:00 EDT, Solution, Partial fill upon patient request Start Date: 09/13/19 Status: OrderedMultivitamin Tablet 1 tablet, By Mouth, [...] with diff and CMP - fax to [phone] While on antibiotic treatment - obtain weekly CBC with diff and CMP - fax to [phone], See Instructions, # 1 each, Refills 0, Tot. Refills 0, Maintenance, CBC with differential and complete metabolic panel weekly, fax to [phone], attn Dr. Moreno ... Start Date: 09/17/19 Status: OrderedZosyn 3 gm-0.375 gm/50 ml intravenous solution = 3.375 Gm, IV Infusion, Every 8 hours, for 34 days, # 1 each, 0 Refills, Acute 10/17/19 16:04:00 EDT, 09/13/19 16:04:00 EDT Start Date: 09/13/19 Stop Date: 10/17/19 Status: Ordered Problem List Condition Effective Dates Status Health Status Informant Opioid use disorder(Confirmed) Active Alcohol use disorder, severe, Active dependence(Confirmed) Results Orders for Microbiology Reports Name Date Blood Culture 09/10/19 Blood Culture #2 09/10/19 Blood Culture 09/07/19 Blood Culture #2 09/07/19 Blood Culture 09/05/19 Blood Culture #2 09/05/19 Blood Culture 09/04/19 Blood Culture #2 09/04/19 Blood Culture #2 09/03/19 Microbiology Reports TEST:Blood Culture, Second Order STATUS:Auth (Verified) BODY SITE: SOURCE:Blood COLLECTED DATE/TIME:09/10/19 12:08 PMBlood Culture, Second Order SPECIMEN DESCRIPTION : BLOOD L HAND SPECIAL REQUESTS : NONE CULTURE : NO GROWTH 5 DAYS. REPORT STATUS : FINAL 09/15/2019TEST:Blood Culture STATUS:Auth (Verified) BODY SITE: SOURCE:Blood COLLECTED DATE/TIME:09/10/19 8:59 AMBlood Culture SPECIMEN DESCRIPTION : BLOOD RH SPECIAL REQUESTS : NONE CULTURE : NO GROWTH 5 DAYS. REPORT STATUS : FINAL 09/15/2019TEST:Blood Culture STATUS:Auth (Verified) BODY SITE: SOURCE:Blood COLLECTED DATE/TIME:09/07/19 6:43 AMBlood Culture SPECIMEN DESCRIPTION : BLOOD L SPECIAL REQUESTS : CRITICAL VALUE CALLED AND VERIFIED BY READBACK FOR: GRAM POSITIVE COCCI TO [id number],W47,09/08 AT 1525 BY TECH 155 CRITICAL VALUE CALLED AND VERIFIED BY READBACK FOR: POSITIVE BLOOD CULTURE W/GRAM NEGATIVE [place], [place] [id number], W4, 09/11/19 AT 0958 BY TECH 701. CULTURE : GRAM POSITIVE COCCI THE GRAM POSITIVE COCCI FAILED TO GROW FOR IDENTIFICATION AND SUSCEPTIBILITY TESTING. PREVOTELLA(BACTEROIDES) BUCCAE BETA LACTAMASE POSITIVE REPORT STATUS : FINAL 09/13/2019 ORGANISM PREVOTELLA(BACTEROIDES) BUCCAE BETA LACTAMASE POSITIVE METHOD ANO2 ETEST GRADIENT STRIP (MCG/ML) CLINDAMYCIN .094 SUSCEPTIBLE METRONIDAZOLE 1.0 SUSCEPTIBLETEST:Blood Culture, Second Order STATUS:Auth (Verified) BODY SITE: SOURCE:Blood COLLECTED DATE/TIME:09/07/19 6:43 AMBlood Culture, Second Order SPECIMEN DESCRIPTION : BLOOD NOSITE SPECIAL REQUESTS : NONE CULTURE : NO GROWTH 5 DAYS. REPORT STATUS : FINAL 09/12/2019TEST:Blood Culture, Second Order STATUS:Auth (Verified) BODY SITE: SOURCE:Blood COLLECTED DATE/TIME:09/05/19 1:59 PMBlood Culture, Second Order SPECIMEN DESCRIPTION : BLOOD R H SPECIAL REQUESTS : NONE CULTURE : NO GROWTH 5 DAYS. REPORT STATUS : FINAL 09/10/2019TEST:Blood Culture STATUS:Auth (Verified) BODY SITE: SOURCE:Blood COLLECTED DATE/TIME:09/05/19 12:14 PMBlood Culture SPECIMEN DESCRIPTION : BLOOD L ARM SPECIAL REQUESTS : NONE CULTURE : NO GROWTH 5 DAYS. REPORT STATUS : FINAL 09/10/2019TEST:Blood Culture STATUS:Auth (Verified) BODY SITE: SOURCE:Blood COLLECTED DATE/TIME:09/04/19 8:51 AMBlood Culture SPECIMEN DESCRIPTION : BLOOD RHAND SPECIAL REQUESTS : CRITICAL VALUE CALLED AND VERIFIED BY READBACK FOR: GRAM POSITIVE COCCI IN BLOOD CULTURE, TO W4, EMP [id number], BY TECH 187 AT 1200, 09/06/19. CULTURE : STAPHYLOCOCCUS AUREUS. REPORT STATUS : FINAL 09/08/2019 ORGANISM STAPHYLOCOCCUS AUREUS. METHOD MIN. INHIB. CONC. (MCG/ML) CIPROFLOXACIN SUSCEPTIBLE CLINDAMYCIN SUSCEPTIBLE ERYTHROMYCIN SUSCEPTIBLE LEVOFLOXACIN SUSCEPTIBLE OXACILLIN SUSCEPTIBLE PENICILLIN RESISTANT RIFAMPIN SUSCEPTIBLE RIFAMPIN RIFAMPIN SHOULD NOT BE USED ALONE FOR ANTIMICROBIAL RIFAMPIN THERAPY. TETRACYCLINE SUSCEPTIBLE TRIMETH/SULFAMETHOX SUSCEPTIBLE VANCOMYCIN SUSCEPTIBLETEST:Blood Culture, Second Order STATUS:Auth (Verified) BODY SITE: SOURCE:Blood COLLECTED DATE/TIME:09/04/19 8:51 AMBlood Culture, Second Order SPECIMEN DESCRIPTION : BLOOD LHAND SPECIAL REQUESTS : NONE CULTURE : NO GROWTH 5 DAYS. REPORT STATUS : FINAL 09/09/2019TEST:Blood Culture, Second Order STATUS:Auth (Verified) BODY SITE: SOURCE:Blood COLLECTED DATE/TIME:09/03/19 6:00 PMBlood Culture, Second Order SPECIMEN DESCRIPTION : BLOOD RHAND SPECIAL REQUESTS : CRITICAL VALUE CALLED AND VERIFIED BY READBACK FOR: GRAM POSITIVE COCCI TO [id number] AT 1220 09/04/19 AT [id number] BY 157. CULTURE : STAPHYLOCOCCUS AUREUS. REPORT STATUS : FINAL 09/06/2019 ORGANISM STAPHYLOCOCCUS AUREUS. METHOD MIN. INHIB. CONC. (MCG/ML) CIPROFLOXACIN SUSCEPTIBLE CLINDAMYCIN SUSCEPTIBLE ERYTHROMYCIN SUSCEPTIBLE LEVOFLOXACIN SUSCEPTIBLE OXACILLIN SUSCEPTIBLE PENICILLIN RESISTANT RIFAMPIN SUSCEPTIBLE RIFAMPIN RIFAMPIN SHOULD NOT BE USED ALONE FOR ANTIMICROBIAL RIFAMPIN THERAPY. TETRACYCLINE SUSCEPTIBLE TRIMETH/SULFAMETHOX SUSCEPTIBLE VANCOMYCIN SUSCEPTIBLERadiology Reports Exam Date Time Procedure Performing Provider Status 09/04/19 9:29 AM Ankle Min 3 Views Right Leonor Morton; Auth (V erified) Notes:(Ankle Min 3 Views Right) Reason For Exam: PainRESULT: Ankle Min 3 Views Right Ankle Min 3 Views Right Reason: Pain; Clinical Question(s): Osteomyelitis; Hx of Present Illness: staph Aureus in 2 blood cultures, c o left psoterior rib pain, denies fevers. COMPARISON: None. 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 Heterotopic ossification at the distal tib-fib syndesmosis and posterior aspect of the tibiotalar joint IMPRESSION: No radiographic evidence of osteomyelitis WSN: [id number] Ordering Physician: Ernestina Bazan Dictated By: Gui Moreno MD Dictated Date/Time: 09/04/19 10:49 a Reviewed By: Gui Moreno MD Signed By: Gui Moreno MD Signed Date/Time: 09/04/19 10:49 am Transcribed By: MAG Transcribed Date/Time: 09/04/19 10:45 am Exam Date Time Procedure Performing Provider Status 09/03/19 6:58 PM Chest 2 Views Frontal and Lat Maribel Bazan ; Laci (Verified) Notes:(Chest 2 Views Frontal and Lat) Reason For Exam: Shortness of Breath RESULT: Chest 2 Views Frontal and Lat Chest 2 Views Frontal and Lat Reason: Shortness of Breath; Clinical Question(s): Pneumonia; Hx of Present Illness: staph Aureus in2 blood cultures, c o left posterior rib pain, denies fevers COMPARISON: None. FINDINGS: LINES AND TUBES: None. LUNGS AND PLEURA: Clear lungs. Normal pulmonary vascularity. No pleural effusion. No pneumothorax. HEART, MEDIASTINUM AND ALEX: Heart is normal in size. Normal mediastinal and hilar contour. BONES AND SOFT TISSUES: No acute abnormality. IMPRESSION: No acute abnormality. WSN: [id number] Ordering Physician: Nigel Pederson Dictated By: John Ruelas MD Dictated Date/Time: 09/03/19 7:01 pm Reviewed By: John Ruelas MD Signed By: John Ruelas MD Signed Date/Time: 09/03/19 7:01 pm Transcribed By: MAG Transcribed Date/Time: 09/03/19 7:00 pm Vital Signs Most recent to oldest 1 2 3 [Reference Range]: Height 178 cm 178 cm 178 cm (09/17/19 7:45 AM) (09/17/19 12:46 AM) (09/16/19 8: 17 PM) Weight 108.5 kg (09/04/19 2:00 AM) Oxygen Saturation [94-100 %] 97 % 97 % 96 % (09/17/19 7:45 AM) (09/17/19 12:46 AM) (09/16/19 8: 17 PM) Pulse Rate [55-90 bpm] 73 bpm 85 bpm 104 bpm (09/17/19 7:45 AM) (09/17/19 12:46 AM) *H* (09/16/19 8:17 PM ) Body Mass Index [18.5-24.99] 34.24 *>HHI* (09/04/19 2:00 AM) Blood Pressure [90-138/55-84 113/75 mm Hg 94/55 mm Hg 135 /67 mm Hg mm Hg] (09/17/19 7:45 AM) (09/17/19 12:46 AM) (09/16/19 8: 17 PM) Respiratory Rate [16-30 16 br/min 20 br/min 20 br/mi n br/min] (09/17/19 10:34 AM) (09/17/19 7:45 AM) (09/17/19 12 :46 AM) Temperature [96.8-100.4 98.1 DegF 98.1 DegF 98.5 Deg F DegF] (09/17/19 7:45 AM) (09/17/19 12:46 AM) (09/16/19 8: 17 PM) Liters per Minute 0 L/min (09/04/19 2:00 AM) Mode of Delivery (Oxygen) Room air Room air Room a ir (09/17/19 7:45 AM) (09/17/19 12:46 AM) (09/16/19 8: 17 PM) Blood pressure sites Arm, left Arm, left Arm, left (09/17/19 7:45 AM) (09/16/19 4:00 PM) (09/16/19 8:0 0 AM) Temperature Route Oral Oral Oral (09/17/19 7:45 AM) (09/17/19 12:46 AM) (09/16/19 8: 17 PM) Dry Weight 108.5 kg (09/04/19 2:00 AM) Weight Obtained Via Bed scale (09/04/19 2:00 AM) Dry Weight Obtained Via Bed scale (09/04/19 2:00 AM)
[2022-05-11 03:04] LABS: COVID-19 Test Negative (Negative); IDNOW Serial# BCCEAD1C
[2022-05-11 03:06] LABS: Alanine Aminotransferase 19 U/L (0-40); Albumin Level 4.1 g/dL (3.5-5.0); Alkaline Phosphatase 102 U/L (39-117); Anion Gap 15 (12-20); Aspartate Amino Transferase 20 U/L (5-37); Bilirubin Total 0.3 mg/dL (0.0-1.0); Blood Urea Nitrogen 15 mg/dL (9-16); Calcium 9.1 mg/dL (8.4-10.2); Carbon Dioxide 25 mmol/L (22-29); Chloride 103 mmol/L (96-108); Creatinine Clr Calc Pharmacy 156.8; Estimated Glomerular Filt Rate > 60; Glucose Random 137 mg/dL (60-115); Sodium 139 mmol/L (135-145); Total Protein 7.5 g/dL (6.5-8.0)
[2022-05-11 03:12] LABS: B Type Natriuretic Peptide < 10 pg/mL (<100)
[2022-05-11 04:00] VITALS: BP 131/76; PULSE 97; RESP 18; TEMP 37; O2SAT 96
== END 2022-05-11 07:29 | disposition left against medical advice (07) ==
PROVIDERS: Emergency Provider Emergency Medicine
DX: R06.02 Shortness of breath (principal); R05.9 Cough, unspecified; Z20.822 Contact with and (suspected) exposure to COVID-19; Z20.828 Contact with and (suspected) exposure to other viral communicable diseases; Z79.899 Other long term (current) drug therapy
CPT/HCPCS: 71045; 80053; 83880; 85025; 87635; 93005; 99283

== ENCOUNTER 2023-02-01 11:44 | Outpatient (REF) | payer MEDICAID, SELFPAY ==
[2023-02-01 14:14] LABS: Basophils Absolute Auto 0.1 X10*3/uL (0.0-0.2); Basophils Percent Auto 1.1 % (0-2); Eosinophils Absolute Auto 0.4 X10*3/uL (0.0-0.4); Eosinophils Percent Auto 5.3 % (0-4); Hemoglobin 13.9 g/dl (14.0-18.0); Imm Gran Abs Auto 0.05 X10*3/uL (0.00-0.03); Imm Gran Pct Auto 0.8 % (0.0-0.4); Lymphocytes Absolute Auto 1.8 X10*3/uL (1.2-4.9); Lymphocytes Percent Auto 26.3 % (20-40); MANUAL DIFF FLAG SCAN; Mean Corpuscular HGB Conc 33.1 g/dl (31.0-36.0); Mean Corpuscular Volume 93.8 fL (80.0-98.0); Monocytes Absolute Auto 0.6 X10*3/uL (0.1-1.2); Monocytes Percent Auto 9.3 % (2-11); Neutrophils Absolute Auto 3.8 x10*3/uL (2.0-8.3); Neutrophils Percent Auto 57.2 % (45-73); PLT CLUMP 1; Red Blood Count 4.48 X10*6/uL (4.60-5.80); Red Cell Distribution Width 12.7 % (11.0-16.0); SCAN SMEAR FLAG 1
[2023-02-01 14:38] LABS: Alanine Aminotransferase 23 U/L (0-40); Albumin Level 4.4 g/dL (3.5-5.0); Alkaline Phosphatase 89 U/L (39-117); Anion Gap 17 (12-20); Aspartate Amino Transferase 26 U/L (5-37); Bilirubin Total 0.4 mg/dL (0.0-1.0); Blood Urea Nitrogen 13 mg/dL (9-16); C Reactive Protein 0.76 mg/dL (< or = 0.50); Carbon Dioxide 23 mmol/L (22-29); Chloride 103 mmol/L (96-108); Cholesterol 270 mg/dL (<200); Estimated Glomerular Filt Rate > 60; Glucose Random 123 mg/dL (60-115); HDL Cholesterol 65 mg/dL (>40); LDL Cholesterol Calculated 178 mg/dL (<100); Potassium 4.2 mmol/L (3.3-5.1); Sodium 139 mmol/L (135-145); Total Protein 8.4 g/dL (6.5-8.0); Triglycerides 137 mg/dL (<150)
[2023-02-01 14:45] LABS: Platelet Count 194 X10*3/uL (160-400); White Blood Count 6.7 X10*3/uL (4.8-10.8)
[2023-02-01 14:46] LABS: Creatinine Urine 156.65 mg/dL; Mean Platelet Volume 11.7 fL (9.4-12.4); Microalbum/Creatinine Ratio Ur 18.5 ug/mg cr (<30); SLIDE REVIEW VERIFIED
[2023-02-01 18:57] LABS: CT PCR NOT DETECTED (Not Detect.); NG PCR NOT DETECTED (Not Detect.)
[2023-02-02 08:51] LABS: HBc Num1 6.88 S/CO (0.00-0.79); HBsAGNum1 0.24 S/CO (0.00-0.99); HIV AB/AG Nonreactive (Nonreactive); HIV Num 1 0.04 S/CO (0.00-0.99); Hepatitis B Surface Antigen Negative (Negative); ~HepC Num1 0.12 S/CO (0.00-0.79); ~Hepatitis B Surface Antibody REACTIVE (Nonreactive); ~Hepatitis C Antibody Nonreactive (Nonreactive)
[2023-02-02 09:45] LABS: HBc Num2 7.13 S/CO; HBc Num3 6.82 S/CO
[2023-02-02 09:46] LABS: Hepatitis B Core Antibody Reactive (Nonreactive)
[2023-02-02 17:28] LABS: RPR Rapid Plasma Reagin NON-REACTIVE (NON-REACTIVE)
== END 2023-02-01 11:45 | disposition home or self-care (01) ==
LOC: HO.HHCL 11:44
PROVIDERS: Visit Provider Nurse Practitioner
DX: E11.51 Type 2 diabetes mellitus with diabetic peripheral angiopathy without gangrene (principal); I10 Essential (primary) hypertension; E78.5 Hyperlipidemia, unspecified; L03.818 Cellulitis of other sites; Z20.2 Contact with and (suspected) exposure to infections with a predominantly sexual mode of transmission
CPT/HCPCS: 0353U; 36415; 80053; 80061; 82043; 82570; 85025; 85652; 86140; 86592; 86704; 86706; 86803; 87340; 87389

== ENCOUNTER 2023-03-18 14:19 | Outpatient (REF) | payer MEDICAID, SELFPAY ==
[2023-03-18 16:27] LABS: INTERNATIONAL NORM RATIO 0.9 (0.9-1.1); Prothrombin Time 10.7 SEC (11.1-13.3)
[2023-03-23 09:48] LABS: TS Negative Control PASSED; TS Panel A 0; TS Panel B 0; TS Positive Control PASSED; TSpotTB Negative (NEGATIVE)
[2023-03-24 16:29] LABS: FIB-ALT 16 U/L (9-46); FIB-Alpha-2-Macroglobulin 110 mg/dL (106-279); FIB-Apolipoprotein A1 216 mg/dL (94-176); FIB-GGT 97 U/L (3-95); FIB-Haptoglobin 284 mg/dL (43-212); FIB-Total Bilirubin 0.3 mg/dL (0.2-1.2); Liver Fibrosis Score 0.02; Liver Fibrosis Stage F0; Nec Inflam Act Grade A0; Nec Inflam Act Score 0.04
== END 2023-03-18 14:20 | disposition home or self-care (01) ==
LOC: HO.HHCL 14:19
PROVIDERS: Visit Provider Emergency Medicine
DX: F11.20 Opioid dependence, uncomplicated (principal)
CPT/HCPCS: 36415; 81596; 85610; 86481

== ENCOUNTER 2023-03-20 00:27 | Emergency (ER) | payer MEDICAID, SELFPAY ==
--- NOTE | ~2023-03-20 | CT_ITS ---
EXAMINATION: CT ABDOMEN AND PELVIS WITH CONTRAST GI BLEED CLINICAL INFORMATION: Lower abdominal pain, blood per rectum COMPARISON: 10/14/2021 TECHNIQUE: Initial noncontrast imaging of the abdomen/pelvis. Multidetector volumetric images were obtained from the superior aspect of the liver through the pubic symphysis following administration 85 mL of Omnipaque 350 intravenous contrast in arterial and delayed phases. Sagittal and coronal reformatted images were obtained on the technologist's workstation. This CT examination was performed using dose optimization techniques as appropriate, variously including the following: *Automated exposure control *Adjustment of mA and/or kV according to patient size (this includes techniques or standardized protocols for targeted exams where dose is matched to indication/reason for exam; i.e. extremities or head) *Use of iterative reconstruction technique DLP: 1391 mGy-cm FINDINGS: LUNG BASES: Suboptimally assessed due to motion artifact. LIVER, GALLBLADDER, AND BILIARY TREE: The liver is normal in size, shape, and attenuation. No focal hepatic lesion or biliary ductal dilatation is present. The gallbladder is unremarkable. PANCREAS: Unremarkable. SPLEEN: Unremarkable. ADRENAL GLANDS: Unremarkable. KIDNEYS AND URETERS: No hydronephrosis bilaterally. There is mild to moderate dilation of some segments of the mid and distal ureters bilaterally, with no obstructing calculus seen; appearance is similar to prior. There are multiple calyceal calculi bilaterally measuring up to 8 mm. BLADDER: Unremarkable. GASTROINTESTINAL TRACT: No active gastrointestinal hemorrhage is seen. No evidence of bowel obstruction or significant wall thickening. Mildly hyperdense fluid is present in the descending colon, for which blood products cannot be excluded. The appendix is unremarkable. No free fluid or free air is seen. ABDOMINAL WALL: No significant hernia is appreciated. LYMPH NODES: Enlarged bilateral inguinal lymph nodes are similar to prior. VASCULAR: Mild scattered atherosclerotic calcification. PELVIC VISCERA: Unremarkable. OSSEOUS STRUCTURES: Scattered degenerative changes in the spine. CT/CT gi bleed abd pel wo/w IVcon IMPRESSION: 1. No active gastrointestinal hemorrhage identified. Mildly hyperdense fluid in the descending colon, for which blood products cannot be excluded. 2. Multiple bilateral renal calculi. No hydronephrosis. 3. Mild to moderate dilation of some segments of the mid and distal ureters bilaterally, with no obstructing calculus seen. This is of uncertain clinical significance and is similar to prior. 4. Enlarged bilateral inguinal lymph nodes, also similar to prior.
[2023-03-20 00:39] VITALS: BP 123/74; PULSE 118; RESP 22; TEMP 36.8; O2SAT 94; BMI 34.4
[2023-03-20 01:47] VITALS: BP 141/94; PULSE 114; RESP 14; TEMP 36.6; O2SAT 95
[2023-03-20 02:08] LABS: Basophils Absolute Auto 0.1 X10*3/uL (0.0-0.2); Basophils Percent Auto 0.7 % (0-2); Eosinophils Absolute Auto 0.3 X10*3/uL (0.0-0.4); Eosinophils Percent Auto 4.9 % (0-4); Hematocrit 40.9 % (42.0-52.0); Hemoglobin 13.3 g/dl (14.0-18.0); Imm Gran Abs Auto 0.02 X10*3/uL (0.00-0.03); Imm Gran Pct Auto 0.3 % (0.0-0.4); Lymphocytes Absolute Auto 1.5 X10*3/uL (1.2-4.9); Lymphocytes Percent Auto 22.5 % (20-40); MANUAL DIFF FLAG SCAN; Mean Corpuscular HGB Conc 32.5 g/dl (31.0-36.0); Mean Corpuscular Hemoglobin 30.1 pg (27.0-33.0); Mean Corpuscular Volume 92.5 fL (80.0-98.0); Mean Platelet Volume 10.6 fL (9.4-12.4); Monocytes Absolute Auto 0.5 X10*3/uL (0.1-1.2); Monocytes Percent Auto 7.3 % (2-11); Neutrophils Absolute Auto 4.3 x10*3/uL (2.0-8.3); Neutrophils Percent Auto 64.3 % (45-73); PLT CLUMP 1; Red Blood Count 4.42 X10*6/uL (4.60-5.80); Red Cell Distribution Width 12.7 % (11.0-16.0); SCAN SMEAR FLAG 1
[2023-03-20 02:10] LABS: Platelet Count 91 X10*3/uL (160-400); White Blood Count 6.7 X10*3/uL (4.8-10.8)
[2023-03-20 02:20] LABS: Alanine Aminotransferase 23 U/L (0-40); Albumin Level 4.1 g/dL (3.5-5.0); Alkaline Phosphatase 80 U/L (39-117); Anion Gap 18 (12-20); Aspartate Amino Transferase 27 U/L (5-37); Bilirubin Total 0.2 mg/dL (0.0-1.0); Blood Urea Nitrogen 11 mg/dL (9-16); Calcium 9.5 mg/dL (8.4-10.2); Carbon Dioxide 19 mmol/L (22-29); Chloride 103 mmol/L (96-108); Creatinine Clr Calc Pharmacy 151.8; Estimated Glomerular Filt Rate > 60; Glucose Random 112 mg/dL (60-115); Potassium 4.2 mmol/L (3.3-5.1); Sodium 136 mmol/L (135-145); Total Protein 8.2 g/dL (6.5-8.0)
[2023-03-20 02:33] LABS: SLIDE REVIEW VERIFIED
--- NOTE | 2023-03-20 02:52 | ED.GIBLEED ---
HPI - GI Bleed General Chief complaint: GI Bleed Stated complaint: blood in urine Time Seen by Provider: 03/20/23 02:51 Source: patient and family Mode of arrival: ambulatory Limitations: language barrier (Patient's 1st language is Nigerien, he speaks some Azeri, theoretical physics teacher used) History of Present Illness HPI Narrative: 42-year-old male with a history of diabetes mellitus, anemia, obstructive sleep apnea, alcohol alcohol use disorder, opiate use disorder, cocaine use disorder who presents emergency department for evaluation of bright red blood per rectum. Patient states that he felt like he had to pass gas and instead past bright red blood per rectum. He states this is 1st episode of bleeding per rectum. He states that he did have mild left lower abdominal pain which started today. He does not have a history of hemorrhoids. He denied any weight loss but he states that he has gained weight. The patient does drink 2 6 packs of beer per day and 5-7 nips of Smirnoff vodka per day. Patient also uses intranasal heroin and cocaine daily. He has not had a colonoscopy. He is not aware of any family history of colon cancer. Related Data Home Medications Medication Instructions Recorded Confirmed pyridoxine (vitamin B6) 50 mg 50 mg PO DAILY 12/25/19 02/04/22 tablet thiamine HCl (vitamin B1) 100 mg 100 mg PO DAILY 12/25/19 02/04/22 tablet aspirin 81 mg chewable tablet 1 tab PO DAILY 11/27/21 02/04/22 atorvastatin 40 mg tablet 40 mg PO DAILY 11/27/21 02/04/22 cholecalciferol (vitamin D3) 50 50 mcg PO DAILY 11/27/21 02/04/22 mcg (2,000 unit) tablet furosemide 20 mg tablet 20 mg PO DAILY 11/27/21 02/04/22 losartan 50 mg tablet 50 mg PO DAILY 11/27/21 02/04/22 metformin 500 mg tablet 500 mg PO 11/27/21 02/04/22 Previous Rx's Medication Instructions Recorded albuterol sulfate 90 mcg/actuation 1 puff inhalation QID PRN 03/08/22 aerosol inhaler shortness of breath or wheezing #8.5 grams azithromycin 250 mg tablet See Rx Instructions PO .COMPLEX #6 03/08/22 (Zithromax Z-Eleno) tabs oxymetazoline 0.05 % nasal spray 2 spray intranasal Q12H PRN nasal 03/08/22 (Afrin Sinus (oxymetazoline)) congestion 3 days #22 mL prednisone 20 mg tablet 20 mg PO BID #10 tabs 03/08/22 hydrocortisone 2.5 % topical cream 1 appl NJ BID #30 grams 03/20/23 with perineal applicator (Proctozone-HC) Allergies Allergy/AdvReac Type Severity Reaction Status Date / Time No Known Allergies Allergy Verified 03/20/23 00:39 Review of Systems Review of Systems: Yes all other systems are reviewed and are negative [facility] Past Medical History [facility] Narrative: Past medical history: Diabetes mellitus, anemia, obstructive sleep apnea, alcohol use disorder, opiate use disorder, cocaine use disorder. Social history: He does smoke cigarettes. He drinks 2 6 packs of beer per day. He drinks 5-7 nips of Smirnoff vodka per day. Patient uses intranasal cocaine and heroin daily. 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 Surgical History History of ankle surgery Social History Social History (System 01/31/23 @ 15:04 by Marta Tolliver) Household Members Other:: mom Housing: Apartment Alcohol intake: current Alcohol intake frequency: 3 or more drinks per day Alcohol type: beer and hard liquor Patient Tobacco Use Status: Current everyday Tobacco user Cigarettes Per Day: 2 Years Smoked: 20 Substance Use Type: Crack/Cocaine and Heroin Advance Directives: No Advance Directives Information Provided: No Physical Exam Vital Signs: Vital Signs: Last Vital Signs Temp 97.6 F 03/20/23 05:03 Pulse 88 03/20/23 05:03 Resp 14 03/20/23 05:03 BP 139/85 03/20/23 05:03 Pulse Ox 95 03/20/23 05:03 O2 Del Method Room Air 03/20/23 05:03 BMI result Body Mass Index 34.4 Vital signs were normal Exam: General: Awake, alert in no distress Head: Normocephalic, atraumatic EENT: PERRL, Lids normal, sclera normal, conjunctiva normal, nose normal , ears normal, throat without erythema or exudates Neck: Supple, no adenopathy, no trachea midline or C-spine tenderness Lung: breath sounds symmetric, no wheezing, rales or rhonchi Chest: symmetric movement, nontender Heart: regular rate and rhythm, normal S1, S2 no murmurs or rubs Abdomen: soft, obese, mild left lower quadrant tenderness, nondistended, normal bowel sounds Rectal: Normal rectal tone, large amount of dark red stool in rectum, Hemoccult-positive Back: no vertebral tenderness, no CVAT Extremities: no deformities, moves all extremities symmetrically Neuro: Awake, alert, oriented, normal speech, cranial nerves intact, moves all extremities symmetrically Psych: Pleasant, cooperative Medications Administered Discontinued Medications Generic Name Dose Route Start Last Admin Trade Name Freq PRN Reason Stop Dose Admin Sodium Chloride 1,000 mls @ 999 mls/hr 03/20/23 03:12 03/20/23 03:42 Ns IV 03/20/23 04:12 999 mls/hr .Q1H1M STA Administration Iohexol 85 ml 03/20/23 04:17 03/20/23 04:18 Iohexol 350 Mg/Ml 100 Ml Infus..Btl IV 03/20/23 04:18 85 ml ONCE ONE Administration Medical Decision Making Medical Decision Making MDM Narrative: 42-year-old male with history diabetes mellitus, anemia, obstructive sleep apnea, alcohol use disorder, opiate use disorder, cocaine use disorder who presents emergency department for evaluation of bright red blood per rectum. Patient also is complaining of abdominal pain. Vital signs were normal. Examination did reveal mild left lower quadrant tenderness large amount of dark red blood per rectum. Differential diagnosis includes but is not limited to hemorrhoidal bleed, polyp bleed, colon cancer, AVM, acute diverticular bleed, coagulopathy Following evaluation was ordered: CBC, CMP, PT/INR, PTT, alcohol level, drug screen, lipase, CT GI bleed abdomen pelvis with without IV contrast, pulse ox monitoring, cardiac monitoring Patient was treated with the following: normal saline IV x1 L. 05:14 My interpretation patient's laboratory evaluation is as follows: H&H was normal 13 and 40.9. Platelet count was low 91,000. Repeat H&H (1 hour 30 minutes) was 13.5 and 40.8. Coags were normal. CMP was normal. Lipase was normal. Ethanol was 49. CT abdomen GI protocol with and without contrast did not reveal any active bleed but did reveal mildly hyperdense fluid in the descending colon which could be consistent with blood. Given the negative CT scan and the fact that the patient's H&H did not drop, I suspect the patient has lower GI bleed most likely caused by hemorrhoids or polyp. Patient will be started on Proctozone 2.5% hemorrhoid cream twice a day and after each bowel movement. Patient was advised to follow-up with his PCP for re-evaluation and return if his symptoms get worse. Admission/Observation Consideration of admission/observation: Escalation of care including admission/observation considered Lab Data MDM Lab Attestation statement: I reviewed the patient's lab results. 03/20/23 03:36 03/20/23 02:00 Labs: Lab Results 03/20/23 03/20/23 03/20/23 Range/Units 02:00 03:36 04:17 WBC 6.7 (4.8-10.8) X10*3/uL RBC 4.42 L (4.60-5.80) X10*6/uL Hgb 13.3 L 13.5 L (14.0-18.0) g/dl Hct 40.9 L 40.8 L (42.0-52.0) % MCV 92.5 (80.0-98.0) fL MCH 30.1 (27.0-33.0) pg MCHC 32.5 (31.0-36.0) g/dl RDW 12.7 (11.0-16.0) % Plt Count 91 L D (160-400) X10*3/uL MPV 10.6 (9.4-12.4) fL Immature Gran % (Auto) 0.3 (0.0-0.4) % Neut % (Auto) 64.3 (45-73) % Lymph % (Auto) 22.5 (20-40) % Wetzel % (Auto) 7.3 (2-11) % Eos % (Auto) 4.9 H (0-4) % Baso % (Auto) 0.7 (0-2) % Lymph # (Auto) 1.5 (1.2-4.9) X10*3/uL Wetzel # (Auto) 0.5 (0.1-1.2) X10*3/uL Eos # (Auto) 0.3 (0.0-0.4) X10*3/uL Baso # (Auto) 0.1 (0.0-0.2) X10*3/uL Abs Immat Gran (auto) 0.02 (0.00-0.03) X10*3/uL Absolute Neuts (auto) 4.3 (2.0-8.3) x10*3/uL Absolute Nucleated RBC 0.000 (0.0-0.012) X10*3/uL Nucleated RBC % (auto) 0.0 (0.0-0.2) /100WBC Smear Tech's Comments VERIFIED PT 12.0 (11.1-13.3) SEC INR 1.0 (0.9-1.1) APTT 30.6 (26.0-36.4) SEC Sodium 136 (135-145) mmol/L Potassium 4.2 (3.3-5.1) mmol/L Chloride 103 (96-108) mmol/L Carbon Dioxide 19 L (22-29) mmol/L Anion Gap 18 (12-20) BUN 11 (9-16) mg/dL Creatinine 0.79 (0.5-1.4) mg/dL Estim Creat Clear Calc 151.8 Estimated GFR > 60 Random Glucose 112 (60-115) mg/dL Calcium 9.5 (8.4-10.2) mg/dL Total Bilirubin 0.2 (0.0-1.0) mg/dL AST 27 (5-37) U/L ALT 23 (0-40) U/L Alkaline Phosphatase 80 (39-117) U/L Total Protein 8.2 H (6.5-8.0) g/dL Albumin 4.1 (3.5-5.0) g/dL Lipase 13 (8-78) U/L Ethyl Alcohol 49 mg/dL Blood Type O Positive Antibody Screen NEGATIVE Radiology Impression Discussion of test interpretation with radiology: I have reviewed the radiologist's reading. Radiologist Impression: CT gi bleed abd pel wo/w IVcon IMPRESSION: 1. No active gastrointestinal hemorrhage identified. Mildly hyperdense fluid in the descending colon, for which blood products cannot be excluded. 2. Multiple bilateral renal calculi. No hydronephrosis. 3. Mild to moderate dilation of some segments of the mid and distal ureters bilaterally, with no obstructing calculus seen. This is of uncertain clinical significance and is similar to prior. 4. Enlarged bilateral inguinal lymph nodes, also similar to prior. Dictated By: Jefferson Charles MD Independent Historian Clinical information obtained from an independent historian. History obtained from or confirmed by: Spouse Chronic Conditions Patient?s care impacted by: Other (Opiate use disorder, alcohol use disorder, cocaine use disorder) Discharge Plan Discharge Clinical Impression: Acute lower gastrointestinal bleeding, Thrombocytopenia, Alcohol use disorder, Heroin use, Cocaine use Patient Disposition: Home, Self-Care Instructions: Rectal Bleeding (ED) Additional Instructions: Your hemoglobin was normal and your repeat hemoglobin 2 hours after being in the emergency department was also normal pain You did have blood in your rectum on your rectal exam. The CT scan of your abdomen pelvis looking for GI bleed was normal which is reassuring. At this time I suspect that your blood in your rectum is due to a hemorrhoid or to a bleeding polyp. Your platelet count was low and this is most likely caused by your alcohol or drug use. It is important that you get help with your alcohol and drug use disorders, you should talk to your doctor about getting into an alcohol treatment program and possibly getting on medications that reduce your desire to drink alcohol Use the Proctozone 2.5% cream with the applicator twice a day and after each bowel movement Follow-up with your doctor in 2 days. Please return to the emergency department if your symptoms get worse or if you develop any symptoms that are concerning to you. Prescriptions: New hydrocortisone [Proctozone-HC] 2.5 % cream with perineal applicator 1 appl NJ BID Qty: 30 0RF No Action albuterol sulfate 90 mcg/actuation HFA aerosol inhaler 1 puff inhalation QID PRN (Reason: shortness of breath or wheezing) Qty: 8.5 0RF azithromycin [Zithromax Z-Eleno] 250 mg tablet See Rx Instructions .ROUTE .COMPLEX Qty: 6 0RF Rx Instructions: For 250 mg dose pack: take 500 mg today (day 1), then 250 mg for 4 days (days 2-5) prednisone 20 mg tablet 20 mg PO BID Qty: 10 0RF oxymetazoline [Afrin Sinus (oxymetazoline)] 0.05 % spray,non-aerosol 2 spray intranasal Q12H PRN (Reason: nasal congestion) 3 Days Qty: 22 0RF pyridoxine (vitamin B6) 50 mg tablet 50 mg PO DAILY thiamine HCl (vitamin B1) 100 mg tablet 100 mg PO DAILY cholecalciferol (vitamin D3) 50 mcg (2,000 unit) tablet 50 mcg PO DAILY furosemide 20 mg tablet 20 mg PO DAILY aspirin 81 mg tablet,chewable 1 tab PO DAILY metformin 500 mg tablet 500 mg PO atorvastatin 40 mg tablet 40 mg PO DAILY losartan 50 mg tablet 50 mg PO DAILY
[2023-03-20 03:31] LABS: Lipase 13 U/L (8-78)
[2023-03-20] MEDS: 0.9 % Sodium Chloride 1,000 ML 999 ML IV (03:42)
[2023-03-20 03:52] LABS: Hematocrit 40.8 % (42.0-52.0); Hemoglobin 13.5 g/dl (14.0-18.0)
[2023-03-20 03:58] LABS: Partial Thromboplastin Time 30.6 SEC (26.0-36.4)
[2023-03-20 04:12] LABS: Ethanol 49 mg/dL
[2023-03-20] MEDS: iohexoL 350 MG/ML 100 ML INFUS..BTL 85 ML IV (04:18)
[2023-03-20 05:03] VITALS: BP 139/85; PULSE 88; RESP 14; TEMP 36.4; O2SAT 95
[2023-03-20 06:24] LABS: Amphetamine Screen Urine Not Detected (Not Detect); Barbiturates, Urine Not Detected (Not Detect); Benzodiazepines Screen Urine Not Detected (Not Detect); Cannabinoid Screen Urine Not Detected (Not Detect); Cocaine Screen Urine POSITIVE (Not Detect); Fentanyl, urine POSITIVE (Not Detect); Opiate Screen Urine POSITIVE (Not Detect); Phencyclidine Screen Urine Not Detected (Not Detect)
== END 2023-03-20 06:14 | disposition home or self-care (01) ==
PROVIDERS: Emergency Provider Emergency Medicine Emergency Medical Services
DX: K92.2 Gastrointestinal hemorrhage, unspecified (principal); F11.10 Opioid abuse, uncomplicated; F14.10 Cocaine abuse, uncomplicated; D69.6 Thrombocytopenia, unspecified; R10.32 Left lower quadrant pain; R10.2 Pelvic and perineal pain; F10.129 Alcohol abuse with intoxication, unspecified; Y90.2 Blood alcohol level of 40-59 mg/100 ml; F10.10 Alcohol abuse, uncomplicated; F17.210 Nicotine dependence, cigarettes, uncomplicated; Z79.899 Other long term (current) drug therapy
CPT/HCPCS: 36415; 74178; 80053; 80307; 83690; 85014; 85018; 85025; 85610; 85730; 86850; 86900; 86901; 99285; Q9967

== ENCOUNTER 2023-11-23 11:57 | Outpatient (REF) | payer MEDICAID, SELFPAY ==
[2023-11-23 13:47] LABS: MANUAL DIFF FLAG NO
[2023-11-23 14:01] LABS: Basophils Absolute Auto 0.1 X10*3/uL (0.0-0.2); Eosinophils Absolute Auto 0.4 X10*3/uL (0.0-0.4); Eosinophils Percent Auto 4.7 % (0-4); Hematocrit 40.8 % (42.0-52.0); Hemoglobin 13.4 g/dl (14.0-18.0); Imm Gran Abs Auto 0.03 X10*3/uL (0.00-0.03); Imm Gran Pct Auto 0.4 % (0.0-0.4); Lymphocytes Absolute Auto 2.3 X10*3/uL (1.2-4.9); Lymphocytes Percent Auto 27.8 % (20-40); Mean Corpuscular HGB Conc 32.8 g/dl (31.0-36.0); Mean Corpuscular Hemoglobin 30.2 pg (27.0-33.0); Mean Corpuscular Volume 92.1 fL (80.0-98.0); Mean Platelet Volume 10.4 fL (9.4-12.4); Monocytes Absolute Auto 0.7 X10*3/uL (0.1-1.2); Monocytes Percent Auto 8.5 % (2-11); Neutrophils Absolute Auto 4.7 x10*3/uL (2.0-8.3); Neutrophils Percent Auto 57.6 % (45-73); Platelet Count 281 X10*3/uL (160-400); Red Blood Count 4.43 X10*6/uL (4.60-5.80); Red Cell Distribution Width 13.2 % (11.0-16.0); White Blood Count 8.1 X10*3/uL (4.8-10.8)
[2023-11-23 14:21] LABS: Alanine Aminotransferase 13 U/L (0-40); Albumin Level 4.2 g/dL (3.5-5.0); Alkaline Phosphatase 88 U/L (39-117); Anion Gap 13 (12-20); Aspartate Amino Transferase 18 U/L (5-37); Bilirubin Total 0.3 mg/dL (0.0-1.0); Blood Urea Nitrogen 13 mg/dL (9-16); Calcium 9.2 mg/dL (8.4-10.2); Carbon Dioxide 25 mmol/L (22-29); Chloride 102 mmol/L (96-108); Cholesterol 238 mg/dL (<200); Estimated Glomerular Filt Rate > 60; Glucose Random 128 mg/dL (60-115); HDL Cholesterol 61 mg/dL (>40); LDL Cholesterol Calculated 140 mg/dL (<100); Sodium 136 mmol/L (135-145); Total Protein 7.9 g/dL (6.5-8.0); Triglycerides 187 mg/dL (<150)
[2023-11-23 14:36] LABS: Creatinine Urine 182.54 mg/dL; Microalbum/Creatinine Ratio Ur 9.8 ug/mg cr (<30)
== END 2023-11-23 11:58 | disposition home or self-care (01) ==
LOC: HO.HHCL 11:57
PROVIDERS: Visit Provider Nurse Practitioner
DX: E11.51 Type 2 diabetes mellitus with diabetic peripheral angiopathy without gangrene (principal)
CPT/HCPCS: 36415; 80053; 80061; 82043; 82570; 85025

== ENCOUNTER 2024-01-16 13:29 | Outpatient (AMB) | payer MEDICAID, SELFPAY ==
--- NOTE | 2024-01-16 13:31 | MHC.OFFVIS ---
Vital Signs 01/16/24 13:38 Height 5 ft 11 in Weight 243 lb BMI 33.9 BP 134/75 Blood Pressure Location Rt brachial Position Sitting Pulse 89 Intake Visit Reasons: abdominal hernia Intake Note: Patient referred by pcp Vidya Kang DIRECTOR OF PLANNING for abdominal hernia. Present for 2yrs. Patient c/o: abdomninal pain. Denies nausea, diarrhea. Vice President Business & Corporate Development Required: Yes Vice President Business & Corporate Development Name: Abby PEREIRA Accompanied by: Self / Same As Patient Allergies No Known Allergies Allergy (Verified 01/16/24 13:36) HPI Comments Details: Patient presents for evaluation of a symptomatic enlarging umbilical hernia. He has had this for years time. His increasing in size. He would like to have it repaired. He has no other GI issues or complaints. Does occasional strenuous activities. Chart was reviewed and patient evaluated [facility] 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 Surgical History History of ankle surgery Social History Household Members Other:: mom Housing: Apartment Alcohol intake: current Alcohol intake frequency: 3 or more drinks per day Alcohol type: beer and hard liquor Patient Tobacco Use Status: Current everyday Tobacco user Cigarettes Per Day: 2 Years Smoked: 20 Substance Use Type: Crack/Cocaine and Heroin Physical Exam Vital Signs: Last Vital Signs Pulse 89 01/16/24 13:38 BP 134/75 01/16/24 13:38 BMI result Body Mass Index 33.9 Chest Other: Chest breath sounds bilaterally, HS 1 in 2 GI Other: Patient was examined both supine and standing with Valsalva. Bilateral groin exam negative. Genitalia within normal limits. Abdomen corpulent, soft, benign. Patient has a roughly 4 cm irreducible umbilical hernia Assessment & Plan Assessment & Plan (1) Incarcerated umbilical hernia: Code(s): K42.0 - Umbilical hernia with obstruction, without gangrene Category: Surgical Plan Risks, benefits, and alternatives of open umbilical hernia repair with mesh reviewed with the patient and included but not limited to bleeding, infection, recurrence, numbness, pain, scarring, bowel injury and the patient wishes to proceed. All questions answered. Arrangements will be made for this. Coding Level of Care Code New Pt Level 5 (25099) Diagnoses Incarcerated umbilical hernia K42.0
[2024-01-16 13:38] VITALS: BP 134/75; PULSE 89; BMI 33.9
== END 2024-01-16 13:44 | disposition home or self-care (01) ==
LOC: HO.HGS 13:30
PROVIDERS: Visit Provider Surgery
DX: K42.0 Umbilical hernia with obstruction, without gangrene (principal)
CPT/HCPCS: 99204

== ENCOUNTER → 2024-01-16 13:29 | Outpatient (BNVA) | payer MEDICAID, SELFPAY | PROVIDERS: Visit Provider Surgery | DX: K42.0 Umbilical hernia with obstruction, without gangrene (principal) | CPT/HCPCS: 99202 ==

== ENCOUNTER 2024-07-02 14:42 | Outpatient (REF) | payer MEDICAID, SELFPAY ==
--- OUTSIDE RECORDS SUMMARY | 2024-07-02 14:45 | XMS_ITS | Encounter Summary ---
Author Organization [employer] Address [address] [place] [address] Care Team Providers Care Fitness Instructor Name Role Phone Vidya Kang NP Primary Care Provider [phone] Reason for Visit * Reason Comments Follow-up Encounter Details Date Type Department Care Team ([facility] Contact Info) Description 07/02/2024 1:45 PM EDT Office Visit [facility] [address] [place] [address] Vidya Kang NP [address] [place] [address] Positive colorectal cancer screening using Cologuard test (Primary Dx); Type 2 diabetes mellitus without complication, without long-term current use of insulin (CMS/HCC); Cocaine abuse (CMS/HCC); Peripheral vascular disease of lower extremity (CMS/HCC) Social History Tobacco Use Types Packs/Day Years Used Date Smoking Tobacco: Every Day Cigarettes Smokeless Tobacco: Never Alcohol Use Standard Drinks/Week Comments Yes 12 (1 standard drink = 0.6 oz pure alcohol) more than 6pk beer daily, 4 nips daily Alcohol Answer Date Recorded How often do you have a drink containing alcohol ? 4 05/06/2022 How many drinks containing a lcohol do you have on a typical day when you are drinking? 2 05/06/2022 How often do you have six or more drinks on one occasion? 4 05/06/2022 Depression Answer Date Recorded Patient Health Questionnaire-9 Score 21 05/21/2024 Patient Health Questionnaire-9 Score 21 05/21/2024 Last PHQ-9: Questionnaire Data Not on file 0 05/21/2024 Housing Stability Answer Date Recorded What is your housing situation today? I have eugenie young 04/26/[address] you li ve. Do you have problems with any of the following? None of the above 04/26/2024 Food Insecurity Answer Date Recorded Within the past 12 months, y ou worried that your food would run out before you got money to buy more: Sometimes True 2024 Within the past 12 months,th e food you bought just didn't last and you didn't have enough money to get more: Sometimes True 04/27/2024 Transportation Answer Date Recorded In the past 12 months, has l ack of transportation kept you from medical appts, meetings, work or from getting things needed for daily living? No 06/10/2023 Utilities Answer Date Recorded In the past 12 months, has t he electric, gas, oil or water company threatened to shut off services in your home? Yes 04/26/2024 Depression Answer Date Recorded Patient Health Questionnaire-2 Score 6 05/21/2024 Internet Access Answer Date Recorded Internet Access Q1 Yes 04/26/2024 Internet Access Q2 Not on file 04/26/2024 Sex and Gender Information Value Date Recorded Sex Assigned at Male 12/21/2021 10:21 AM EDT Legal Sex Male 10:21 AM EDT Gender Identity Male 02/25/2023 9:36 AM EST Sexual Orientation Straight 12/21/2021 10 :21 AM EDT documented as of this encounter Last Filed Vital Signs Vital Sign Reading Time Taken Comments Blood Pressure 134/78 07/02/2024 2:16 PM EDT Pulse 85 07/02/2024 2:16 PM EDT Temperature 37 ??C (98.6 ??F) 07/02/2024 2:16 PM EDT Respiratory Rate 20 07/02/2024 2:16 PM EDT Oxygen Saturation 98% 07/02/2024 2:16 PM EDT Inhaled Oxygen Concentration - - Weight 114 kg (251 lb 3.2 oz) 07/02/2024 2:16 PM EDT Height 180.3 cm (5' 11 ) 07/02/2024 2:16 PM EDT Body Mass Index 35.04 07/02/2024 2:16 PM EDT documented in this encounter Plan of Treatment Upcoming Encounters Date Type Department Care Team (Late st Contact Info) Description 08/28/2024 2:30 PM EDT Office Visit [facility] [address] [place] [address] Padmini Murphy, OD [address] [place] [address] documented as of this encounter Procedures Procedure Name Priority Date/Time Associated Diagnosis Comments POCT GLUCOSE Routine 07/02/2024 2:17 PM EDT Type 2 diabetes mellitus without complication, without long-term current use of insulin (CMS/HCC) documented in this encounter Results * POCT Glucose (07/02/2024 2:17 PM EDT) Glucose Blood, POC 125 60 - 200 mg/dL QC Media Lot # [id number] Lot# Expiration Date [id number] Blood Capillary blood specimen / Unknown 07/02/2024 2:17 PM EDT Vidya Kang NP POINT OF CARE TEST ENTER/EDIT O RDERABLES Final Result documented in this encounter Visit Diagnoses Diagnosis Positive colorectal cancer screening using Cologuard test- Primary Type 2 diabetes mellitus without complication, without long-term current use of insulin (CMS/HCC) Cocaine abuse (CMS/HCC) Nondependent cocaine abuse, unspecified Peripheral vascular disease of lower extremity (CMS/HCC) documented in this encounter Additional Health Concerns Assessment Noted Time PHQ-9 Depression Total Score: 21 025 2:56 PM EDT documented as of this encounter Care Teams Fitness Instructor Relationship Specialty Start Date End Date Vidya Kang NP [address] [place] [address] PCP - General Family Medicine 11/30/22 documented as of this encounter
--- OUTSIDE RECORDS SUMMARY | 2024-07-02 14:45 | XMS_ITS | Encounter Summary ---
Author Organization [employer] Address [address] [facility] [address] [place] [address] Care Team Providers Care Director Geothermal Operations Name Role Phone Vidya Kang NP Primary Care Provider [phone] Reason for Visit * Reason Onset Date Comments chartprep 06/29/2024 Encounter Details Date Type Department Care Team (Late st Contact Info) Description 06/29/2024 Telephone [facility] [address] [place] [address] Al Knowles MA chartprep Social History Tobacco Use Types Packs/Day Years [...] AM EDT documented as of this encounter Miscellaneous Notes * Telephone Encounter - Al Knowles MA - 06/29/2024 1:00 PM EDT Chart Prep Labs: done except lipid,basic metabolic panel Images: not applicable Referrals: no show on 06/19/2024 ,rescheduled for 08/28/2024@ 2:30pm w/ [facility] general surgery no show. Vaccines due: Covid and Flu Screenings: not applicable Overdue care gaps: Not applicable documented in this encounter Plan of Treatment Upcoming Encounters Date Type Department Care Team (Late st Contact Info) Description 08/28/2024 2:30 PM EDT Office Visit [facility] [address] [place] [address] Padmini Murphy, OD [address] [place] [address] documented as of this encounter Visit Diagnoses Not on filedocumented in this encounter Additional Health Concerns Assessment Noted Time PHQ-9 Depression Total Score: 21 025 2:56 PM EDT documented as of this encounter Care Teams Director Geothermal Operations Relationship Specialty Start Date End Date Vidya Kang NP [address] [place] [address] PCP - General Family Medicine 11/30/22 documented as of this encounter
--- OUTSIDE RECORDS SUMMARY | 2024-07-02 14:45 | XMS_ITS | Clinical Summary ---
Author Organization [employer] Address [address] [facility] [address] [place] [address] Care Team Providers Care Interventional Radiologist Name Role Phone Vidya Kang NP Primary Care Provider [phone] Allergies No known active allergies Medications * This document contains information received from the source organization and may not represent a complete record from that organization. cholecalciferol (Vitamin D-3) 50 MCG (1999) tablet Take by mouth in the morning. 022 Active Blood Pressure Monitoring (Omron 3 Series BP Monitor) device USE TO CHECK BLOOD PRESSURE DAILY Active Blood Glucose Monitoring Suppl (Skemazyle Bryce Lite) w/Device kit TEST BLOOD SUGAR THREE TIMES DAILY 022 Active cetirizine (ZyrTEC) 10 MG tabletIndications :Seasonal allergies Take 1 tablet (10 mg) by mouth in the morning. 90 tablet 2 023 Active B Complex Vitamins (B-Complex/B-12) tablet TAKE 1 TABLET BY MOUTH EVERY DAY WITH A MEAL 90 tablet 1 023 Active ferrous gluconate (Fergon) 324 (38 Fe) MG tabletIndications :Iron deficiency anemia secondary to inadequate dietary iron intake Take 1 tablet (324 mg) by mouth every other day. 45 tablet 3 023 Active Ventolin HFA 108 (90 Base) MCG/ACT inhalerIndication s:Mild intermittent asthma without complication Inhale 2 puffs every 4 (four) hours if needed for wheezing or shortness of breath. 18 g 1 023 Active naloxone (Narcan) 4 mg/0.1 mL nasal sprayIndications: Uncomplicated opioid dependence (CMS/HCC) Administer 1 spray (4 mg) into affected nostril(s) if needed for opioid reversal. 2 each 3 Active cloNIDine (Catapres) 0.1 MG tabletIndications :Uncomplicated opioid dependence (CMS/HCC) 1 tablet PO q8 hours prn withdrawal symptoms. 4 tablet 024 Active acamprosate (Campral) 333 MG EC tabletIndications :Alcohol use disorder 1 tablet PO BID x 1 day, then 1 pill PO TID for 2-3 days, then 2 pills PO TID. 60 tablet Active ondansetron (Zofran) 4 MG tabletIndications :Uncomplicated opioid dependence (CMS/HCC) 1 tab (4 mg) PO every 8-12 hours prn nausea or vomiting. 6 tablet Active buPROPion XL (Wellbutrin XL) 300 MG 24 hr tablet Take 1 tablet by mouth in the morning. Active mirtazapine (Remeron) 15 MG tablet Take 1 tablet by mouth in the evening. Active sertraline (Zoloft) 50 MG tablet Take 50 mg by mouth in the morning. Active metFORMIN (Glucophage) 500 MG tabletIndications :Type 2 diabetes mellitus with diabetic polyneuropathy, without long-term current use of insulin ([facility]) TAKE 1 TABLET BY MOUTH TWICE DAILY IN THE MORNING AND IN THE EVENING WITH MEALS 180 tablet 1 Active FREESTYLE LITE test stripIndications: Type 2 diabetes mellitus with diabetic polyneuropathy, without long-term current use of insulin ([facility]) Use to test blood sugar tid 100 each 2 Active Alcohol Swabs (SM Alcohol Prep) 70 % padsIndications:T ype 2 diabetes mellitus with diabetic polyneuropathy, without long-term current use of insulin ([facility]) Apply 1 Swab topically 3 times daily. 100 each 2 024 Active TRUEplus Lancets 33G miscIndications:T ype 2 diabetes mellitus with diabetic polyneuropathy, without long-term current use of insulin ([facility]) Apply 1 Units topically 3 times daily. 100 each 2 024 Active fluticasone (Flonase) 50 MCG/ACT nasal sprayIndications: Nasal congestion Administer 1 spray into each nostril 2 times daily. Shake gently. Before first use, prime pump. After use, clean tip and replace cap. 16 g 2 025 2025 Active budesonide-formot marlys (Symbicort) 80-4.5 MCG/ACT inhalerIndication s:Mild intermittent asthma without complication Inhale 2 puffs in the morning and at bedtime. Rinse mouth with water after use to reduce aftertaste and incidence of candidiasis. Do not swallow. 1 each 1 Active losartan (Cozaar) 50 MG tabletIndications :Essential hypertension,Hype rlipidemia, unspecified hyperlipidemia type Take 1 tablet (50 mg) by mouth Once per day. 30 tablet 1 025 2024 Active Aspirin Low Dose 81 MG chewable tabletIndications :Essential hypertension Chew 1 tablet (81 mg) Once per day. 30 tablet 1 025 2024 Active atorvastatin (Lipitor) 40 MG tabletIndications :Hyperlipidemia, unspecified hyperlipidemia type Take 1 tablet (40 mg) by mouth Once per day. 30 tablet 2 025 2024 Active furosemide (Lasix) 20 MG tabletIndications :Peripheral vascular disease of lower extremity (CMS/HCC) TAKE 1 TABLET BY MOUTH EVERY MORNING 90 tablet 2 Active furosemide (Lasix) 20 MG tabletIndications :Peripheral vascular disease of lower extremity (CMS/HCC) TAKE 1 TABLET BY MOUTH EVERY MORNING 30 tablet 025 2024 Discontinued(R eorder (will not trigger notification to Pharmacy)) Active Problems Problem Noted Date Diagnosed Date Opioid abuse 09/30/2023 Substance use disorder 04/14/2023 Assessment & Plan (04/14/2023 7:09 PM EST): -treatment initiated with [facility] -encouraged to actively participate in programs provided through [facility] for increased recovery success -DTA paperwork provided -patient informed of care management services available to him at the clinic -Patient verbalizes understanding Cellulitis 02/23/2023 Assessment & Plan (02/23/2023 12:30 PM EST): -question cellulitis vs PVD -will treat with 10 course of doxycyline -will evaluate CRP and ESR Routine adult health maintenance 02/23/2023 Assessment & Plan (02/23/2023 12:33 PM EST): -flu vaccine received today -declined COVID vax -addiction cessation encouraged: will connect with [facility] -needs vision care: will address at next visit -called dental to see patient urgently today -will completed diabetic foot exam at next visit Peripheral vascular disease of lower extremity 0 02/23/2023 Assessment & Plan (02/23/2023 12:29 PM EST): -physical exam finding suggestive of PVD -question cellulitis -vascular referral placed -patient encouraged to take prescribed lasix to assist with edema relief Hyperlipidemia 02/23/2023 Assessment & Plan (05/22/2024 7:28 AM EDT): -med refilled -repeat fasting labs ordered Assessment & Plan (02/23/2023 12:39 PM EST): -previously prescribed lipitor 40 mg every day -lipid ordered -will follow-up in 3 months Mild intermittent asthma without complication Assessment & Plan (05/22/2024 8:00 AM EDT): -uncontrolled w/ ACT score 9 -start maintenance w/ symbicort; med use and potentia; side effects reviewed -follow-up 1 month Assessment & Plan (02/23/2023 12:18 PM EST): -stable at this time -inhaler refilled Routine screening for STI (sexually transmitted infection) 02/23/2023 Oral aphthous ulcer 02/23/2023 Assessment & Plan (02/23/2023 12:37 PM EST): -recurrent problem -treated with dexamethasone elixer in 05/2022 -called dental to have patient seen urgently today Seasonal allergies 06/16/2022 Iron deficiency anemia 04/19/2022 Umbilical hernia 12/02/2021 Essential hypertension 11/13/2021 Overview (02/23/2023): -goal 130/80 Assessment & Plan (05/22/2024 7:57 AM EDT): -approaching goal -discussed med compliance, low salt/low fat diet & routine exercise -med refills provided -follow-up 3 months Assessment & Plan (02/23/2023 12:20 PM EST): -BP not at goal, but stable today 134/78 -continue losartan 50 mg every day -low salt diet advised Lymphedema 06/03/2021 Type 2 diabetes mellitus 06/03/2021 Assessment & Plan (05/22/2024 7:33 AM EDT): -persistent improvement -A1c down to 6.4%, POCT glucose 154 mg/dL -continue metformin 500 mg two times daily -microalbumin stable as of 11/2023 -discussed med importance of med compliance as to avoid disease related complications -lifestyle and dietary requirements reviewed -follow-up 3 months Assessment & Plan (12/29/2023 11:51 AM EST): -A1c at goal of <7%. 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 06/03/2021 Alcoholism 10/27/2016 Overweight 10/27/2016 Tobacco dependence syndrome 10/27/2016 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 02/10/2015 Opioid dependence 09/07/2011 Assessment & Plan (12/29/2023 11:48 AM EST): -advised patient to get reconnected with [facility] for continued treatment Encounters Date Type Department Care Team Description 07/02/2024 1:45 PM EDT Office Visit [facility] [address] [place] [phone] Vidya Kang NP Positive colorectal cancer screening using Cologuard test (Primary Dx); Type 2 diabetes mellitus without complication, without long-term current use of insulin (CMS/HCC); Cocaine abuse (CMS/HCC); Peripheral vascular disease of lower extremity (CMS/HCC) 07/02/2024 Travel 06/29/2024 Telephone [facility] [address] [place] [phone] Al Knowles MA chartprep 06/19/2024 Telephone [facility] [address] [place] [phone] Padmini Murphy OD 06/18/2024 Patient Outreach [facility] [address] [place] [address] [phone] Vidya Kang NP Care Coordination (C3CM/TENISHA AndersonOH f/u ) 05/21/2024 1:45 PM EDT Office Visit [facility] [address] [place] [address] [phone] Vidya Kang NP Type 2 diabetes mellitus without complication, without long-term current use of insulin ([facility]); Dietary counseling; Exercise counseling; Nasal congestion; Mild intermittent asthma without complication; Screening for colon cancer; Essential hypertension; Hyperlipidemia, unspecified hyperlipidemia type 05/21/2024 Travel 05/14/2024 Telephone [facility] [address] [place] [phone] Al Knowles MA chartprep 05/11/2024 Patient Outreach [facility] [address] [place] [phone] Vidya Kang NP SDOH Concerns (C3CM/TENISHA Anderson SDOH f/u) 05/04/2024 Population Health Risk Score [facility] (C3) Department [address] [place] [phone] Provider, Population Health Generic 04/27/2024 Patient Outreach [facility] [address] [place] [address] Vidya Kang NP Care Coordination (C3CM/CHW Pedro Fiore, enrollment, SDOH screening ) 04/27/2024 Patient Outreach [facility] [address] [place] [address] Vidya Kang NP 04/27/2024 Telephone [facility] [address] [place], [place] [phone] Vidya Kang NP chartprep 04/26/2024 Patient Outreach [facility] [address] [place], [place] [phone] Vidya Kang NP Pre-visit Planning (SDOH positive, Tobacco screening positive. ) from Last 3 Months Immunizations Name Administration Dates Next Due Hep A / Hep B 12/02/2009,04/03/2009 Hep A, Adult 10/09/2021 Hep B, adult 12/02/2009,08/12/2009 Influenza injectable quadriv alent preservative free 01/28/2023,12/15/2021,04/03/2014 Influenza, IIV3, injectable 11/11/2009 Influenza, Split (incl. abhijeet fied surface antigen) 01/21/2012 Pneumococcal Conjugate PCV 20 04/19/2022 Pneumococcal Polysaccharide PPSV23 09/08/2019 TD (adult), 2 Lf tetanus tox oid, preservative free, adsorbed 03/19/2009 Tdap 04/19/2022,01/21/2012 Family History Medical History Relation Name Comments Diabetes Mother Hyperlipidemia Mother Hypertension Mother Diabetes Sister Hyperlipidemia Sister Hypertension Sister Relation Name Status Comments Mother Sister Social History Tobacco Use Types Packs/Day Years Used Date Smoking Tobacco: Every Day Cigarettes Smokeless Tobacco: Never Tobacco Cessation:Ready to Q uit: Not Asked; Counseling Given: Not Answered Alcohol Use Standard Drinks/Week Comments Yes 12 [...] Orientation Straight 12/21/2021 10 :21 AM EDT Last Filed Vital Signs Vital Sign Reading [...] Mass Index 35.04 07/02/2024 2:16 PM EDT Plan of Treatment Upcoming Encounters Date Type Department Care Team (Late st Contact Info) Description 08/28/2024 2:30 PM EDT Office Visit [facility] [address] [place] [address] Brennanalexandro Padmini, OD [address] [place] [address] Health Maintenance Due Date Last Done Comments CT Colonography 1978 Colonoscopy 1978 FIT 1978 FOBT 1978 Sigmoidoscopy 1978 Eye Exam 1988 Family Planning (PISQ) 1993 Dental Oral Exam 03/12/2016 09/09/2015, 06/11/2014 Dental X-Ray: Full Mouth 06/12/2017 06/11/2014 Dental Prophylaxis 03/04/2018 08/31/2017, 0 03/02/2017, 03/23/2016, Additional history exists Dental X-Ray: Bitewings 09/01/2018 09/01/19 18, 09/09/2015, 06/11/2014 COVID-19 Vaccine ( season) 2023 08/15/2020 Influenza Vaccine (#1) 2023 , 12/15/2021, 04/03/2014, Additional history exists Diabetes: Foot Exam 09/29/2024 09/30/2023, 09/30/2023, 09/30/2023, Additional history exists Diabetes: Hemoglobin A1C 11/20/2024 025, 09/30/2023, 01/28/2023, Additional history exists Diabetes: Urine Protein Screening 11/22/2024 11/23/2023, 02/01/2023, 11/13/2021, Additional history exists Lipid Panel 11/22/2024 11/23/2023, 01/21, 09/29/2021, Additional history exists SDOH Screening 04/27/2025 04/27/2024 Alcohol/Substance Use Screening 05/21/2025 05/21/2024 Depression Screening 05/21/2025 05/21/2024, 05/22/19 25 Tobacco Screening 05/22/2025 05/22/2024 Colorectal Cancer Screening 06/06/2027 FIT DNA/Cologuard 06/06/2027 06/05/2024 Zoster Vaccines (1 of 2) 2028 DTaP/Tdap/Td Vaccines (3 - Td or Tdap) 04/19/2032 04/19/2022, 01/21/2012, 03/19/2009 RSV Patients and Patients Aged 60 years or older (1 - 1-dose 75+ series) 2053 Pneumococcal Vaccine: Pediatrics (0 to 5 Years) and At-Risk Patients (6 to 49) Years) Completed 04/19/2022, 09/08/2019 HIV Screening Completed 02/01/2023, 0810/2021, 06/25/2020 Hepatitis C Screening Completed 02/01/2023, 021 Hepatitis A Vaccines Aged Out 09/11/2023, 10/09/2021, 12/02/2009, Additional history exists No longer eligible based on patient's age to complete this topic Hepatitis B Vaccines Completed 09/11/2023, 12/02/2009, 12/02/2009, Additional history exists HIB Vaccines Aged Out No longer eligi ble based on patient's age to complete this topic HPV Vaccines Aged Out No longer eligi ble based on patient's age to complete this topic IPV Vaccines Aged Out No longer eligi ble based on patient's age to complete this topic Meningococcal Vaccine Aged Out No kavin prakash eligible based on patient's age to complete this topic RSV under 20 months Aged Out No longe r eligible based on patient's age to complete this topic Rotavirus Vaccines Aged Out No longer eligible based on patient's age to complete this topic Procedures Procedure Name Priority Date/Time Associated Diagnosis Comments POCT GLUCOSE Routine 07/02/2024 2:17 PM EDT Type 2 diabetes mellitus without complication, without long-term current use of insulin ([facility]) LAB COLOGUARD?? COLON CANCER SCREEN Routine 06/05/2024 4:30 PM EDT Screening for colon cancer POCT GLYCATED HEMOGLOBIN, TOTAL Routine 05/21/2024 2:19 PM EDT Type 2 diabetes mellitus without complication, without long-term current use of insulin (CMS/HCC) POCT GLUCOSE Routine 05/21/2024 2:13 PM EDT Type 2 diabetes mellitus without complication, without long-term current use of insulin (CMS/HCC) ALBUMIN, RANDOM URINE W/CREATININE Routine 11/23/2023 12:15 PM EDT Type 2 diabetes mellitus with diabetic peripheral angiopathy without gangrene, without long-term current use of insulin (CMS/HCC) LIPID PANEL, STANDARD Routine 11/23/2023 12:05 PM EDT Type 2 diabetes mellitus with diabetic peripheral angiopathy without gangrene, without long-term current use of insulin (CMS/HCC) HEPATITIS C AB W/REFL TO HCV RNA, QN, PCR Routine 02/01/2023 11:46 AM EST HIV 1/2 ANTIGEN/ANTIBODY, FOURTH GENERATION W/RFL Routine 02/01/2023 11:46 AM EST PROPHYLAXIS - ADULT Routine 08/31/2017 1 2:00 AM EDT BITEWINGS - 4 RADIOGRAPHIC IMAGES Routine 08/31/2017 12:00 AM EDT PERIODIC ORAL EVALUATION - ESTABLISHED PATIENT Routine 09/09/2015 12:00 AM EDT INTRAORAL - COMPLETE SERIES OF RADIOGRAPHIC IMAGES Routine 06/11/2014 12:00 AM EDT from Last 3 Months or Most Recently Relevant to Health Maintenance Results * POCT Glucose (07/02/2024 2:17 PM EDT) Only the most recent of2 resultswithin the time period is included. Glucose Blood, POC 125 60 - 200 mg/dL QC Media Lot # [id number] Lot# Expiration Date [id number] Blood Capillary blood specimen / Unknown 07/02/2024 2:17 PM EDT Vidya Kang HEALTH TECHNICIAN POINT OF CARE TEST ENTER/EDIT O RDERABLES Final Result * (ABNORMAL) Cologuard?? colon cancer screening (06/05/2024 4:30 PM EDT) Cologuard Result Positive( A) Negative 06/13/2024 8:32 PM EDT [facility] (CLIA #:[id number]) Comment: The Cologuard (TM) test was performed on this specimen. POSITIVE TEST RESULT. A positive Cologuard result should be followed with a colonoscopy or visual examination of the colon. The normal value (reference range) for this assay is negative. TEST DESCRIPTION: Composite algorithmic analysis of stool DNA-biomarkers with hemoglobin immunoassay. ?? Quantitative values of individual biomarkers are not reportable and are not associated with individual biomarker result reference ranges. Cologuard is intended for colorectal cancer screening of adults of either sex, 45 years or older, who are at average-risk for colorectal cancer (CRC). Cologuard has been approved for use by the U.S. FDA. The performance of Cologuard was established in a cross sectional study of average-risk adults aged 50-84. Cologuard performance in patients ages 45 to 49 years was estimated by sub-group analysis of near-age groups. Colonoscopies performed for a positive result may find as the most clinically significant lesion: colorectal cancer [4.0%], advanced adenoma (including sessile serrated polyps greater than or equal to 1cm diameter) [20%] or non- advanced adenoma [31%]; or no colorectal neoplasia [45%]. These estimates are derived from a prospective cross-sectional screening study of 10,000 individuals at average risk for colorectal cancer who were screened with both Cologuard and colonoscopy. (Isaiah Wolf al, N Engl J Med 2014;370(14):0074-0860.) Cologuard may produce a false negative or false positive result (no colorectal cancer or precancerous polyp present at colonoscopy follow up). A negative Cologuard test result does not guarantee the absence of CRC or advanced adenoma (pre-cancer). The current Cologuard screening interval is every 3 years. ([place] [employer] and U.S. Multi-Society Task Force). Cologuard performance data in a 10,000 patient pivotal study using colonoscopy as the reference method can be accessed at the following location: [email or web address].[email or web address]/results. Additional description of the Cologuard test process, warnings and precautions can be found at [email or web address] [email or web address]. Stool specimen (specimen) 06/05/2024 4:30 PM EDT 06/08/2024 10:51 AM EDT Vidya Kang NP LAB MOLECULAR DIAGNOSTICS ORDER [place] Final Result [facility] (CLIA #:[id number]) [address] [place] [address], * (ABNORMAL) POCT HGB A1C (05/21/2024 2:19 PM EDT) Hemoglobin A1C 6.4(A) 4.0 - 6.0 % QC Media Lot # [id number] Lot# Expiration Date Blood 05/21/2024 2:19 PM EDT Vidya Kang NP POINT OF CARE TEST ENTER/EDIT O RDERABLES Final Result * Albumin, Random Urine W/Creatinine (11/23/2023 12:15 PM EDT) Creatinine, Urine 182.54 mg/dL [facility] Microalbumin Urine 18.0 mg/L [facility] Microalbum Creatinine Ratio Ur 9.8 <30 ug/mg cr [facility] Comment:Albumin/Creatinine R atio Reference Ranges: Normal: < 30 ug/mg creatinine Microalbuminuria: 30 - 300 ug/mg creatinineClinical Albuminuria: > 300 ug/mg creatinine Urine (Urine, Random) 11/23/2023 12:15 PM EDT 11/23/2023 1:29 PM EDT [facility] [employer] HEALTH TECHNICIAN LAB URINE ORDERABLES Final Resu lt [facility] [address] [place] [address] [phone] * (ABNORMAL) Lipid Panel, Standard (11/23/2023 12:05 PM EDT) Triglycerides 187(H) <150 mg/dL [facility] Comment:Desirable Triglyceri de: less than 150 mg/dLBorderline High Triglyceride 150-199 mg/dLHigh Triglyceride: 200-499 mg/dLVery High Triglyceride: greater than or equal to 5OO mg/dL Cholesterol 238(H) <200 mg/dL [facility] Comment:Desirable Cholestero l: less than 200 mg/dLBorderline High Cholesterol: 200-239 mg/dLHigh Cholesterol: greater than 239 mg/dL LDL Cholesterol Calculated 140(H) <100 mg/dL [facility] Comment:Desirable LDL: less than 100 mg/dLNear Optimal/Above Optimal LDL: 110- 129 mg/dLBorderline High LDL: 130-159 mg/dLHigh LDL: 160-189 mg/dLVery High LDL: greater than or equal to 190 mg/dL HDL Cholesterol 61 >40 mg/dL [facility] Comment:Desirable HDL: great er than 40 mg/dL Note: This HDL assay may give artificially low results in patients with liver disease. Blood Venous blood specimen / Unknown 11/23/2023 12:05 PM EDT 11/23/2023 1:43 PM EDT Vidya Concha HEALTH TECHNICIAN LAB BLOOD ORDERABLES Final Resu lt [facility] [address] [place] [phone] [phone] * Hepatitis C Antibody with Reflex to HCV, RNA, Quantitative, Real-Time PCR (02/01/2023 11:46 AM EST) Hepatitis C Antibody Nonreactive Nonreactive [facility] Comment:Antibodies to HCV no t detected; does not exclude early acuteHCV infection. 02/01/2023 11:4 6 AM EST 02/01/2023 1:33 PM EST Generic External Data Provider LAB BLOOD ORDERAB LES Final Result Performing Organization Address [facility]/ZIP Co de Phone Number [facility] [address] [place] [address] [phone] * HIV-1/2 Antigen and Antibodies, Fourth Generation, with Reflexes (02/01/2023 11:46 AM EST) [facility] HIV AB/AG Nonreactive Nonreactive [facility] Comment:HIV-1 p24 Ag and/or HIV-1/HIV-2 Ab not detected.A test result that is nonreactive does not exclude thepossibility of exposure to or infection with HIV-1 and/orHIV-2. Nonreactive results in this assay for individualswith prior exposure to HIV-1 and/or HIV-2 may be due toantigen and antibody levels that are below the limit ofdetection of this assay.The [employer] HIV Ag/Ab Combo assay result andsupplemental assay results should be interpreted inconjunction with the patient's clinical presentation,history and other laboratory results. If the results areinconsistent with clinical evidence, additional testing issuggested to confirm the result. 02/01/2023 11:4 6 AM EST 02/01/2023 1:33 PM EST us Generic External Data Provider LAB BLOOD ORDERAB LES Final Result Performing Organization Address [facility]/ZIP Co de Phone Number [facility] [address] [place] [address] [phone] from Last 3 Months or Most Recently Relevant to Health Maintenance Insurance [employer] C3 [facility] MEDICAID STAND ADULT Care Teams Interventional Radiologist Relationship Specialty Start Date End Date Vidya Kang NP [address] [place] [address] PCP - General Family Medicine 11/30/22
--- OUTSIDE RECORDS SUMMARY | 2024-07-02 14:45 | XMS_ITS | Encounter Summary ---
Author Organization [employer] Address [address] [facility] 7t [place] [address] Care Team Providers Care Music Teacher Name Role Phone Vidya Kang NP Primary Care Provider [phone] Encounter Details Date Type Department Care Team ([facility] st Contact Info) Description 02/11/2023 Orders Only [facility] [address] [place] [address] Vidya Kang NP [address] [place] [address] Alcoholism (CMS/HCC) (Primary Dx) Social History Tobacco Use Types Packs/Day Years [...] Answer Date Recorded Patient Health Questionnaire-9 Score 18 01/28/2023 Patient Health Questionnaire-9 Score 18 01/28/2023 Last PHQ-9: Questionnaire Data Not on file 1 03/31/2022 Housing Stability Answer Date Recorded What is your housing situation today? I have eugenie young 12/07/[address] you li ve. Do you have problems with any of the following? None of the above 12/07/2022 Food Insecurity Answer Date Recorded Within the past 12 months, y ou worried that your food would run out before you got money to buy more: Never True 12/07/2022 Within the past 12 months,th e food you bought just didn't last and you didn't have enough money to get more: Never True Transportation Answer Date Recorded In the past 12 months, has l ack of transportation kept you from medical appts, meetings, work or from getting things needed for daily living? No 12/07/2022 Utilities Answer Date Recorded In the past 12 months, has t he electric, gas, oil or water company threatened to shut off services in your home? Yes 11/28/2022 Depression Answer Date Recorded Patient Health Questionnaire-2 Score 5 01/28/2023 Sex and Gender Information Value Date Recorded Sex Assigned at Male 12/21/2021 10:21 AM EDT Legal Sex Male 10:21 AM EDT Gender Identity Male 02/25/2023 9:36 AM EST Sexual Orientation Straight 12/21/2021 10 :21 AM EDT documented as of this encounter Plan of Treatment Upcoming Encounters Date Type Department Care Team (Late st Contact Info) Description 08/28/2024 2:30 PM EDT Office Visit [facility] [address] [place], [place] [phone] Padmini Murphy OD [address] [place], [place] [phone] documented as of this encounter Visit Diagnoses Diagnosis Alcoholism (CMS/HCC)- Primary Other and unspecified alcohol dependence, unspecified drinking behavior documented in this encounter Additional Health Concerns Assessment Noted Time PHQ-9 Depression Total Score: 18 023 1:49 PM EST documented as of this encounter Care Teams Music Teacher Relationship Specialty Start Date End Date Vidya Kang NP [address] [place] [address] PCP - General Family Medicine 11/30/22 documented as of this encounter
--- OUTSIDE RECORDS SUMMARY | 2024-07-02 14:45 | XMS_ITS | Encounter Summary ---
Author Organization [employer] Address [address] [place] [address] [address] [place] [address] Care Team Providers Care Safety Officer Name Role Phone Gisela Figueroa Rocio PROCESS SAFETY MANAGEMENT ENGINEER Primary Care Provider [phone] Vidya Kang MAGISTRATE Primary Care Provider [phone] Encounter Details Date Type Department Care Team (Late st Contact Info) Description 02/26/2022 Orders Only [facility] [address] [place] [address] Marisol Espinosa RN [address] [place] [address] Social History Tobacco Use Types Packs/Day Years Used Date Smoking Tobacco: Never Assessed Sex and Gender Information Value Date Recorded Sex Assigned at Male 12/21/2021 10:21 AM EDT Legal Sex Male 10:21 AM EDT Gender Identity Male 02/25/2023 9:36 AM EST Sexual Orientation Straight 12/21/2021 10 :21 AM EDT documented as of this encounter Plan of Treatment Upcoming Encounters Date Type Department Care Team (Late Contact Info) Description 08/28/2024 2:30 PM EDT Office Visit [facility] [address] [place], [place] [phone] Padmini Murphy OD [address] [place] [address] documented as of this encounter Procedures Procedure Name Priority Date/Time Associated Diagnosis Comments HIGH SENSITIVITY TROPONIN I Routine 03/08/2022 1:04 PM EST CBC WITH AUTO DIFFERENTIAL Routine 03/08/2022 1:04 PM EST APTT Routine 03/08/2022 1:04 PM EST PROTHROMBIN TIME-INR Routine 03/08/2022 1:04 PM EST B TYPE NATRIURETIC PEPTIDE (BNP) Routine 03/08/2022 1:04 PM EST COMPREHENSIVE METABOLIC PANEL Routine 03/08/2022 1:04 PM EST SARS COV2/INFLUENZA A/B AND RSV RNA QL NAAT Routine 03/08/2022 12:35 PM EST documented in this encounter Results * HIGH SENSITIVITY TROPONIN I (03/08/2022 1:04 PM EST) Pathologist [facility] TROPONIN I HIGH SENSITIVITY <3.5 <3.5 - 35.0 ng/L [facility] Comment:The Ragland high sens itivity Troponin-I results should beused in conjunction with other diagnostic information suchas ECG, clinical observations and information, and patientsymptoms to aid in the diagnosis of MT. 03/08/2022 1:04 PM EST 03/08/2022 1:08 PM EST us [facility] External Provider LAB BLO OD ORDERABLES Final Result [facility] [address] [place] [phone] * (ABNORMAL) CBC auto differential (03/08/2022 1:04 PM EST) Pathologist [facility] White Blood Count 9.5 4.8 - 10.8 X10*3/uL [facility] Red Blood Count 4.29(L) 4.60 - 5.80 X10*6/uL [facility] Hemoglobin 12.9(L) 14.0 - 18.0 g/dl [facility] Hematocrit 38.5(L) 42.0 - 52.0 % [facility] Mean Corpuscular Volume 89.7 80.0 - 98.0 fL [facility] Mean Corpuscular Hemoglobin 30.1 27.0 - 33.0 pg [facility] Mean Corpuscular HGB Conc 33.5 31.0 - 36.0 g/dl [facility] Red Cell Distribution Width 12.8 11.0 - 16.0 % [facility] Platelet Count 210 160 - 400 X10*3/uL [facility] Mean Platelet Volume 10.2 9.4 - 12.4 fL [facility] Neutrophils Percent Auto 63.2 45 - 73 % [facility] Imm Gran Pct Auto 0.5(H) 0.0 - 0.4 % [facility] Lymphocytes Percent Auto 19.3(L) 20 - 40 % [facility] Monocytes Percent Auto 9.6 2 - 11 % [facility] Eosinophils Percent Auto 6.7(H) 0 - 4 % [facility] Basophils Percent Auto 0.7 0 - 2 % [facility] NRBC Pct Auto 0.0 0.0 - 0.2 /100WBC [facility] Neutrophils Absolute Auto 6.0 2.0 - 8.3 x10*3/uL [facility] Imm Gran Abs Auto 0.05(H) 0.00 - 0.03 X10*3/uL [facility] Lymphocytes Absolute Auto 1.8 1.2 - 4.9 X10*3/uL [facility] Monocytes Absolute Auto 0.9 0.1 - 1.2 X10*3/uL [facility] Eosinophils Absolute Auto 0.6(H) 0.0 - 0.4 X10*3/uL [facility] Basophils Absolute Auto 0.1 0.0 - 0.2 X10*3/uL [facility] NRBC Abs Auto 0.000 0.0 - 0.012 X10*3/uL [facility] 03/08/2022 1:04 PM EST 03/08/2022 1:08 PM EST us [facility] External Provider LAB BLO OD ORDERABLES Final Result Performing Organization Address [facility] Co de Phone Number [facility] [address] [place] [address] [phone] * B Type Natriuretic Peptide (BNP) (03/08/2022 1:04 PM EST) B Type Natriuretic Peptide <10 <100 pg/mL [facility] Comment:For those patients w ho are being treated with Natrecor(nesiritide, recombinant BNP), BNP testing should beperformed at least two hours post treatment in order toensure that only endogenous levels of BNP are detected. 03/08/2022 1:04 PM EST 03/08/2022 1:08 PM EST [facility] External Provider LAB BLO OD ORDERABLES Final Result Performing Organization Address [facility] de Phone Number [facility] [address] [place] [address] [phone] * (ABNORMAL) Comprehensive Metabolic Panel (03/08/2022 1:04 PM EST) Pathologist [facility] Sodium 137 135 - 145 mmol/L [facility] Potassium 4.3 3.3 - 5.1 mmol/L [facility] Chloride 104 96 - 108 mmol/L [facility] Carbon Dioxide 25 22 - 29 mmol/L [facility] Anion Gap 12 12 - 20 [facility] Urea Nitrogen (BUN) 13 9 - 16 mg/dL [facility] Creatinine, Serum 0.78 0.5 - 1.4 mg/dL [facility] Creatinine Clr Calc Pharmacy 158.5 [facility] Comment:eGFR (calculated fro m the MDRD study equation) and eCrCl(calculated from the Cockcroft-Gault equation) are based ondifferent parameters and may not yield comparable results.If eCrCl result is absurd, please check patient'sheight/weight. Estimated Glomerular Filt Rate >60 [facility] Comment:NOTE: For -Am erican individuals, multiply the result by 1.210.Chronic Kidney Disease: Estimated GFR < 60 mL/min/1.61o2Tgtimh Kidney Disease: Estimated GFR < 15 mL/min/1.73m2 Glucose 143(H) 60 - 115 mg/dL [facility] Calcium 9.1 8.4 - 10.2 mg/dL [facility] Bilirubin, Total 0.4 0.0 - 1.0 mg/dL [facility] Aspartate Amino Transferase 17 5 - 37 U/L [facility] Alanine Aminotransferase 18 0 - 40 U/L [facility] Total Protein 7.3 6.5 - 8.0 g/dL [facility] Albumin Level 4.1 3.5 - 5.0 g/dL [facility] Alkaline Phosphatase 94 39 - 117 U/L [facility] 03/08/2022 1:04 PM EST 03/08/2022 1:08 PM EST [facility] External Provider LAB BLO OD ORDERABLES Final Result Performing Organization Address [facility] Co de Phone Number [facility] [address] [place] [phone] * APTT (03/08/2022 1:04 PM EST) Partial Thromboplastin Time 29.7 26.0 - 36.4 SEC [facility] 03/08/2022 1:04 PM EST 03/08/2022 1:08 PM EST [facility] External Provider LAB BLO OD ORDERABLES Final Result Performing Organization Address [facility] Co de Phone Number [facility] [address] [place] [phone] * Prothrombin Time-INR (03/08/2022 1:04 PM EST) Prothrombin Time 10.9 10.0 - 13.1 SEC [facility] INTERNATIONAL NORM RATIO 1.0 0.9 - 1.1 [facility] Comment:INTERNATIONAL NORMAL IZED RATIO (INR) REFERENCE RANGES Reference RangeFor patients not on anticoagulant therapy: 0.9 - 1.1INR ranges for oral anticoagulanttherapy:For prevention and treatment of venous thrombosis and pulmonary embolism: 2.0 - 3.0For acute myocardial infarction with aspirin therapy: 2.0 - 3.0For acute myocardial infarction without aspirin therapy: 3.0 - 4.0For patients with mechanical prosthetic heart valves: 2.5 - 3.5 03/08/2022 1:04 PM EST 03/08/2022 1:08 PM EST [facility] External Provider LAB BLO OD ORDERABLES Final Result [facility] [address] [place] [address] [phone] * SARS-CoV-2 RNA, Influenza A/B, and RSV RNA, Ql NAAT (03/08/2022 12:35 PM EST) Influenza A PCR NEGATIVE Negative [facility] Influenza B PCR NEGATIVE Negative [facility] Resp Syncy Virus RNA Qual PCR NEGATIVE Negative [facility] SARS COV2 PCR NEGATIVE Negative [facility] SARS/Flu/RSV Note See Note [facility] Comment:All test results mus t be correlated with clinical findings.Negative results do not preclude SARS-CoV2, influenza Avirus, influenza B virus and/or RSV infectionand should not be used as the sole basis for treatment orother patient management decisions. Negative results must becombined with clinical observations, patient history, andepidemiological information.This test has not been evaluated for monitoring treatment ofinfection.This test has been authorized by the FDA under an EmergencyUse Authorization (EUA) for use by authorized laboratories.Testing performed on the [employer] GeneXpert utilizingreal-time RT-PCR.All SARS CoV2 and positive influenza A/B results arereported to [facility]. 03/08/2022 12:3 5 PM EST 03/08/2022 12:39 PM EST us [facility] Exter nal Provider LAB MICROBIOLOGY - GENERAL ORDERABLES Final Result [facility] [address] [place] [phone] documented in this encounter Visit Diagnoses Not on filedocumented in this encounter Care Teams Safety Officer Relationship Specialty Start Date End Date Gisela Figueroa FNP PCP - General Family Medicine 02/09/21 11/29/22 Vidya Kang NP [address] [place] [phone] PCP - General Family Medicine 11/30/22 documented as of this encounter
--- OUTSIDE RECORDS SUMMARY | 2024-07-02 14:45 | XMS_ITS | Encounter Summary ---
Author Organization [employer] Address [address] [facility] 7t [place] [address] Care Team Providers Care Computing Systems Mechanic Name Role Phone Vidya Kang NP Primary Care Provider [phone] Encounter Details Date Type Department Care Team (Latest Contact Info) Description 07/02/2024 Travel Social History Tobacco Use Types Packs/Day Years [...] Description 08/28/2024 2:30 PM EDT Office Visit [facility] [address] [place] [address] Padmini Murphy, OD [address] [place] [address] documented as of this encounter Visit Diagnoses Not on filedocumented in this encounter Additional Health Concerns Assessment Noted Time PHQ-9 Depression Total Score: 21 025 2:56 PM EDT documented as of this encounter Care Teams Computing Systems Mechanic Relationship Specialty Start Date End Date Vidya Kang NP [address] [place] [phone] PCP - General Family Medicine 11/30/22 documented as of this encounter
--- OUTSIDE RECORDS SUMMARY | 2024-07-02 14:46 | XMS_ITS | Encounter Summary ---
Author Organization [employer] Address [address] [facility] 7t [place] [address] Care Team Providers Care Rubber Covering Machine Operator Name Role Phone Vidya Kang NP Primary Care Provider [phone] Reason for Visit * Reason Comments Med Change Request Encounter Details Date Type Department Care Team ([facility] Contact Info) Description 01/28/2023 Refill [facility] [address] [place] [address] Vidya Kang NP [address] [place] [address] Alcoholism ([facility]) Social History Tobacco Use Types Packs/Day Years [...] the past 12 months, has t he [employer], gas, oil or water [employer] threatened to shut off services in your [...] encounter Miscellaneous Notes * Telephone Encounter - Vidya Kang NP - 02/11/2023 4:56 PM EST Medication refilled by other means documented in this encounter Plan of Treatment Upcoming Encounters Date Type Department Care Team (Late st Contact Info) Description 08/28/2024 2:30 PM EDT Office Visit [facility] [address] [place] [address] Padmini Murphy, OD [address] [place] [address] documented as of this encounter Visit Diagnoses Diagnosis Alcoholism (CMS/HCC) Other and unspecified alcohol dependence, unspecified drinking behavior documented in this encounter Additional Health Concerns Assessment Noted Time PHQ-9 Depression Total Score: 18 023 1:49 PM EST documented as of this encounter Care Teams Rubber Covering Machine Operator Relationship Specialty Start Date End Date Vidya Kang NP [address] [place] [phone] PCP - General Family Medicine 11/30/22 documented as of this encounter
--- OUTSIDE RECORDS SUMMARY | 2024-07-02 14:46 | XMS_ITS | Encounter Summary ---
Author Organization [employer] Address [address] [facility] 7t [place] [address] Care Team Providers Care Landscape Drafter Name Role Phone Vidya Kang NP Primary Care Provider [phone] Encounter Details Date Type Department Care Team ([facility] st Contact Info) Description 03/03/2023 Abstract [facility] [address] [place] [address] Vidya Kang NP [address] [place] [address] Social History Tobacco Use Types Packs/Day Years [...] Description 08/28/2024 2:30 PM EDT Office Visit [facility] [address] [place] [address] Padmini Murphy, OD [address] [place] [address] documented as of this encounter Visit Diagnoses Not on filedocumented in this encounter Additional Health Concerns Assessment Noted Time PHQ-9 Depression Total Score: 18 023 1:49 PM EST documented as of this encounter Care Teams Landscape Drafter Relationship Specialty Start Date End Date Vidya Kang NP [address] [place] [address] PCP - General Family Medicine 11/30/22 documented as of this encounter
--- OUTSIDE RECORDS SUMMARY | 2024-07-02 14:46 | XMS_ITS | Encounter Summary ---
Author Organization [employer] Address [address] [facility] 7t [place] [address] Care Team Providers Care Senior Mechanical Estimator Name Role Phone Vidya Kang NP Primary Care Provider [phone] Reason for Visit * Reason Comments Med Refill Encounter Details Date Type Department Care Team ([facility] st Contact Info) Description 03/13/[address] [facility] [address] [place] [address] Vidya Kang NP [address] [place] [address] Peripheral vascular disease of lower extremity (CMS/HCC) [...] Answer Date Recorded What is your housing situati on today? I have housing today, but I am worried about losing housing in the future 06/10/[address] you li ve. Do you have problems with any of the following? Inadequate heat 06/10/2023 Food Insecurity Answer Date Recorded Within the past 12 months, y ou worried that your food would run out before you got money to buy more: Sometimes True 2023 Within the past 12 months,th e food you bought just didn't last and you didn't have enough money to get more: Sometimes True 06/10/2023 Transportation Answer Date Recorded In the past 12 months, has l ack of transportation kept you from medical appts, meetings, work or from getting things needed for daily living? No 06/10/2023 Utilities Answer Date Recorded In the past 12 months, has t he electric, gas, oil or water company threatened to shut off services in your home? I am not sure 06/10/2023 Depression Answer Date Recorded Patient Health Questionnaire-2 Score 5 01/28/2023 Sex and Gender Information Value Date Recorded Sex Assigned at Male 12/21/2021 10:21 AM EDT Legal Sex Male 10:21 AM EDT Gender Identity Male 02/25/2023 9:36 AM EST Sexual Orientation Straight 12/21/2021 10 :21 AM EDT documented as of this encounter Miscellaneous Notes * Telephone Encounter - Vidya Kang NP - 03/15/2024 12:31 PM EST Approving, but needs appt for additional refills. documented in this encounter Plan of Treatment Upcoming Encounters Date Type Department Care Team (Late st Contact Info) Description 08/28/2024 2:30 PM EDT Office Visit [facility] [address] [place] [address] TarkaPadmini, OD [address] [place] [address] documented as of this encounter Visit Diagnoses Diagnosis Peripheral vascular disease of lower extremity (CMS/HCC) documented in this encounter Additional Health Concerns Assessment Noted Time PHQ-9 Depression Total Score: 18 023 1:49 PM EST documented as of this encounter Care Teams Senior Mechanical Estimator Relationship Specialty Start Date End Date Vidya Kang NP [address] [place] [address] PCP - General Family Medicine 11/30/22 documented as of this encounter
[2024-07-02 16:44] LABS: Anion Gap 13 (12-20); Blood Urea Nitrogen 14 mg/dL (9-16); Calcium 9.8 mg/dL (8.4-10.2); Carbon Dioxide 26 mmol/L (22-29); Chloride 104 mmol/L (96-108); Cholesterol 252 mg/dL (<200); Estimated Glomerular Filt Rate > 60; Glucose Random 120 mg/dL (60-115); HDL Cholesterol 67 mg/dL (>40); LDL Cholesterol Calculated 153 mg/dL (<100); Potassium 4.2 mmol/L (3.3-5.1); Sodium 139 mmol/L (135-145); Triglycerides 164 mg/dL (<150)
== END 2024-07-02 14:43 | disposition home or self-care (01) ==
LOC: HO.HHCL 14:42
PROVIDERS: Visit Provider Nurse Practitioner
DX: E11.9 Type 2 diabetes mellitus without complications (principal); I10 Essential (primary) hypertension
CPT/HCPCS: 36415; 80048; 80061

== ENCOUNTER 2024-09-26 14:37 | Outpatient (AMB) | payer MEDICAID, SELFPAY ==
--- NOTE | 2024-09-26 14:40 | MHC.OFFVIS ---
Vital Signs 09/26/24 14:46 Height 5 ft 11 in Weight 248 lb BMI 34.6 BP 122/77 Blood Pressure Location Rt brachial Position Sitting Pulse 94 Intake Visit Reasons: abdominal hernia Intake Note: Patient last seen by Dr. Stacy 01-16-2024, here to re-discuss abdominal hernia repair. Patient c/o: pain when bending. Precision Structural Metal Fitter Required: Yes Precision Structural Metal Fitter Name: Padmini PEREIRA Information Interpreted: clinical only Accompanied by: Self / Same As Patient Allergies No Known Allergies Allergy (Verified 09/26/24 14:45) Medication List - Last Reconciled 09/26/24 by Ryan Rich MD albuterol sulfate 90 mcg/actuation 1 puff inhalation QID PRN atorvastatin 40 mg PO DAILY furosemide 20 mg PO DAILY hydrocortisone 2.5% (Proctozone-HC) 1 appl [place] BID PRN losartan 50 mg PO DAILY metformin 500 mg PO BID HPI HPI abdominal hernia: Details: 43-year-old male here because of an umbilical hernia. He says that he has had this lump on his umbilicus for about 6 years now. He feels that this has been slowly getting larger over the years. He says that this has caused him some discomfort He actually had been seen by Dr. Stacy diffusely and had been scheduled for repair last March,. However, the patient says that he had transportation difficulties so he had cancel the surgery He is morbidly obese. He also has diabetes but he says that his blood sugars are well controlled. He says he is ready to reschedule for the surgery. 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 Surgical History History of ankle surgery Social History Household Members Other:: mom Housing: Apartment Are you a primary healthcare recruiter to a significant other at home: No Do you presently have visiting nurse or other home services: No Alcohol intake: current Alcohol intake frequency: a few times a week Alcohol type: beer and hard liquor Patient Tobacco Use Status: Current everyday Tobacco user Cigarettes Per Day: 2 Years Smoked: 20 Substance Use Type: Crack/Cocaine and Heroin Review of Systems Const Denies chills and Denies fever(s) Card Denies chest pain, Denies dyspnea and Denies dyspnea on exertion Resp Denies cough, Denies dyspnea and Denies dyspnea on exertion GI Denies hematochezia and Denies change in bowel habits Denies hematuria and Denies difficulty urinating Musc Denies back pain and Denies limited range of motion Neuro Denies focal weakness and Denies convulsions Psych Denies depression and Denies mood swings Physical Exam Vital Signs: Last Vital Signs Pulse 94 09/26/24 14:46 BP 122/77 09/26/24 14:46 BMI result Body Mass Index 34.6 Const Other: Morbidly obese General: comfortable and no acute distress Orientation/consciousness: patient oriented x3 Neck Neck: Yes no lymphadenopathy Resp Auscultation: clear to auscultation bilaterally Cardio Rhythm: regular rhythm GI Other: Umbilical hernia, about 2.5 cm, chronically incarcerated, nontender currently Palpation (GI): Soft to palpation, nontender and no guarding Neuro General: patient oriented x3 Assessment & Plan Assessment & Plan (1) Incarcerated umbilical hernia: Code(s): K42.0 - Umbilical hernia with obstruction, without gangrene Category: Surgical Plan: He has an umbilical hernia as described above which seems to be chronically incarcerated. He wants to proceed with repair. I had a long discussion with him about the technique of repair with possible mesh placement. I explained the risks including but not limited to bleeding, infections, bowel injury, recurrence, postop pain, as well as the benefits and alternatives. I reviewed with him what to expect postoperatively. He says he understands and wants to proceed. Coding Level of Care Code Est Pt Level 3 (32513) Diagnoses Incarcerated umbilical hernia K42.0
[2024-09-26 14:46] VITALS: BP 122/77; PULSE 94; BMI 34.6
--- OUTSIDE RECORDS SUMMARY | 2024-09-26 15:03 | XMS_ITS | Encounter Summary ---
Author Organization [email or web address] Address [address] [place] [address] [address] [place] [address] Care Team Providers Care Bill Collector Name Role Phone Vidya Kang NP Primary Care Provider [phone] Reason for Visit * Reason Onset Date Comments Referral 07/25/2024 Encounter Details Date Type Department Care Team ([facility] st Contact Info) Description 07/25/2024 Telephone [facility] MEDICINE [address] [place] [address] Vidya Kang NP [address] [place] [address] Referral Social History Tobacco Use Types Packs/Day Years [...] encounter Miscellaneous Notes * Telephone Encounter - Fernando Bazan - 07/25/2024 3:14 PM EDT Tc from pt requesting a referral for gastroenterology to have a colonoscopy done. If any questions you can contact pt at [phone]. (Stateless Speaker) documented in this encounter Plan of Treatment Not on file documented as of this encounter Visit Diagnoses Not on filedocumented in this encounter Additional Health Concerns Assessment Noted Time PHQ-9 Depression Total Score: 21 025 2:56 PM EDT documented as of this encounter Care Teams Bill Collector Relationship Specialty Start Date End Date Vidya Kang NP [address] [place] [address] PCP - General Family Medicine 11/30/22 documented as of this encounter
== END 2024-09-26 14:59 | disposition home or self-care (01) ==
LOC: HO.HGS 14:37
PROVIDERS: PCP Nurse Practitioner; Visit Provider Surgery
DX: K42.0 Umbilical hernia with obstruction, without gangrene (principal)
CPT/HCPCS: 99213

== ENCOUNTER → 2024-09-26 14:37 | Outpatient (BNVA) | payer MEDICAID, SELFPAY | PROVIDERS: PCP Nurse Practitioner; Visit Provider Surgery | DX: K42.0 Umbilical hernia with obstruction, without gangrene (principal) | CPT/HCPCS: 99212 ==

== ENCOUNTER → 2024-10-24 14:40 | Outpatient (BNV) | payer MEDICAID, SELFPAY | PROVIDERS: Visit Provider Internal Medicine Cardiovascular Disease | DX: R94.31 Abnormal electrocardiogram [ECG] [EKG] (principal); Z01.810 Encounter for preprocedural cardiovascular examination | CPT/HCPCS: 93010 ==

== ENCOUNTER → 2024-10-24 | Day surgery (SDC) | payer MEDICAID, SELFPAY ==
--- OUTSIDE RECORDS SUMMARY | 2024-10-10 16:35 | XMS_ITS | Encounter Summary ---
Author Organization [employer] Address [address] [place] [address] [address] [place] [address] Care Team Providers Care Signal Helper Name Role Phone Vidya Kang NP Primary Care Provider [phone] Reason for Visit * Reason Onset Date Comments Referral 07/25/2024 Encounter Details Date Type Department Care Team ([facility] st Contact Info) Description 07/25/2024 Telephone [facility] MEDICINE [address] [place] [address] Vidya Kang NP [address] [place] [address] Referral Social History Tobacco Use Types Packs/Day [...] any questions you can contact pt at [phone]. (Telugu Speaker) documented in this encounter Plan of Treatment Not on file documented as of this encounter Visit Diagnoses Not on filedocumented in this encounter Additional Health Concerns Assessment Noted Time PHQ-9 Depression Total Score: 21 025 2:56 PM EDT documented as of this encounter Care Teams Signal Helper Relationship Specialty Start Date End Date Vidya Kang NP [address] [place] [address] PCP - General Family Medicine 11/30/22 documented as of this encounter
--- NOTE | 2024-10-24 | ECG_ITS ---
Test Reason : pre op Blood Pressure : */* mmHG Vent. Rate : 90 BPM Atrial Rate : 90 BPM P-R Int : 140 ms QRS Dur : 106 ms QT Int : 390 ms P-R-T Axes : 76 -11 8 degrees QTcB Int : 477 ms Normal sinus rhythm Nonspecific ST abnormality Abnormal ECG When compared with ECG of 08-Mar-2022 12:41, No significant change was found Referred By: Marleni Lou Electronically Signed By: Jesus Alberto Pierce
[2024-10-24 13:28] VITALS: BMI 34.8
[2024-10-24 13:32] VITALS: BP 140/82; PULSE 96; RESP 22; O2SAT 96
--- NOTE | 2024-10-24 13:39 | HO.ANESPROP2 ---
HPI - Anesthesia Eval Consult details Narrative: 44 yr old male for umbilical hernia, reducible with possible mesh rescheduled for 01/15/25 No recent illness No CP/SOB with walking short distances on flat ground, mild SOB if he climbs >4 flight of stairs LOIS: not compliant with CPAP H/O polysubstance abuse: reports previously on suboxone (stopped 2 yrs ago), using ETOH daily ~6 pk, no other drug use since 2022 Asthma: instructed to use ICS/LABA daily from now until surgery date. Type 2 DM: per pt BG 130s-140s, A1C was 6.4% [facility] Active Problems Active Problems: All Active Problems (Updated 10/24/24 @ 13:27 by Suzie Wan RN) Incarcerated umbilical hernia (Acute) Anemia (Acute) LOIS on CPAP (Acute) Leg pain (Acute) DMII (diabetes mellitus, type 2) (Acute) Umbilical hernia (Acute) Lymphedema (Acute) Varicose veins of right lower extremity with inflammation (Acute) Severe obstructive sleep apnea (Acute) Chest pain at rest (Acute) Tobacco dependence (Acute) Alcoholism (Acute) Opioid dependence (Acute) Snoring (Acute) Sleep disorder, unspecified (Acute) Past Medical History Medical History Varicose vein of leg LOIS on CPAP DM type 2 (diabetes mellitus, type 2) Polysubstance abuse Asthma Depression 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 Family History Family History (Updated 10/31/24 @ 11:25 by JACK Tucker) Maternal Grandmother Colon cancer Family history of problems with anesthesia: No Surgical History Surgical History History of pterygium excision History of ankle surgery History of Problems with Anesthesia: No Social History Social History Household Members Other:: mom Housing: Apartment Are you a primary healthcare recruiter to a significant other at home: No Do you presently have visiting nurse or other home services: No Alcohol intake: current Alcohol intake frequency: a few times a week Alcohol type: beer and hard liquor Patient Tobacco Use Status: Current everyday Tobacco user Tobacco use type: Cigarette Cigarettes Per Day: 4 Years Smoked: 15 Substance Use Type: Crack/Cocaine and Heroin Meds Allergies Allergy/AdvReac Type Severity Reaction Status Date / Time No Known Allergies Allergy Verified 09/26/24 14:45 Home Medications ?Medication ?Instructions ?Recorded ?Confirmed ?Last Taken ?Type atorvastatin 40 mg tablet 40 mg PO DAILY 11/27/21 10/23/24 Unknown History furosemide 20 mg tablet 20 mg PO DAILY 11/27/21 10/23/24 Unknown History losartan 50 mg tablet 50 mg PO DAILY 11/27/21 10/23/24 Unknown History metformin 500 mg tablet 500 mg PO BID 11/27/21 10/23/24 Unknown History hydrocortisone 2.5 % topical cream 1 appl [place] BID PRN Hemorrhoids 04/04/24 09/26/24 Unknown History with perineal applicator (Proctozone-HC) aspirin 81 mg tablet,delayed 81 mg PO DAILY 10/23/24 10/23/24 Unknown History release budesonide-formoterol HFA 80 2 puff inhalation BID 10/23/24 10/23/24 Unknown History mcg-4.5 mcg/actuation aerosol inhaler (Symbicort) bupropion HCl 300 mg 24 hr tablet, 300 mg PO QAM 10/23/24 10/23/24 Unknown History extended release cetirizine 10 mg tablet 10 mg PO DAILY 10/23/24 10/23/24 Unknown History cholecalciferol (vitamin D3) 50 50 mcg PO DAILY 10/23/24 10/23/24 Unknown History mcg (2,000 unit) tablet (Vitamin D3) clonidine HCl 0.1 mg tablet 0.1 mg PO TID PRN Withdrawal 10/23/24 10/23/24 Unknown History Symptoms ferrous gluconate 324 mg (38 mg 324 mg PO Q2D 10/23/24 10/23/24 Unknown History iron) tablet mirtazapine 15 mg tablet 15 mg PO QPM 10/23/24 10/23/24 Unknown History sertraline 50 mg tablet 50 mg PO QAM 10/23/24 10/23/24 Unknown History vitamin B complex 1 tab PO DAILY 10/23/24 10/23/24 Unknown History Exam Height,Weight and Vital Signs: Height 5 ft 11 in Weight 113.1 kg Last Vital Signs Pulse 96 10/24/24 13:32 Resp 22 H 10/24/24 13:32 BP 140/82 H 10/24/24 13:32 Pulse Ox 96 10/24/24 13:32 O2 Del Method Room Air 10/24/24 13:32 Pertinent Lab Results Pertinent Lab Results: Laboratory Tests 10/24/24 14:30 WBC 8.3 RBC 4.50 L Hgb 13.6 L Hct 41.7 L Plt Count 146 L D Narrative Narrative: EKG 10/24/24 Vent. Rate : 90 BPM Atrial Rate : 90 BPM P-R Int : 140 ms QRS Dur : 106 ms QT Int : 390 ms P-R-T Axes : 76 -11 8 degrees QTcB Int : 477 ms Normal sinus rhythm Nonspecific ST abnormality Abnormal ECG When compared with ECG of 08-Mar-2022 12:41, No significant change was found Airway Mallampati Class: II TM Dist: >3cm Neck ROM: Full Loose/Missing/Broken Teeth: No Heart: RRR Lungs: CTAB Assessment and Plan Final Anesthetic Review Family History of Problems with Anesthesia: No History of Problems with Anesthesia: No
[2024-10-24 14:54] LABS: Hematocrit 41.7 % (42.0-52.0); Hemoglobin 13.6 g/dl (14.0-18.0); Mean Corpuscular HGB Conc 32.6 g/dl (31.0-36.0); Mean Corpuscular Hemoglobin 30.2 pg (27.0-33.0); Mean Corpuscular Volume 92.7 fL (80.0-98.0); NRBC Abs Auto 0.000 X10*3/uL (0.0-0.012); NRBC Pct Auto 0.0 /100WBC (0.0-0.2); Platelet Count 146 X10*3/uL (160-400); Red Blood Count 4.50 X10*6/uL (4.60-5.80); White Blood Count 8.3 X10*3/uL (4.8-10.8)
== END ==
LOC: HO.PAT 04-02 09:58
PROVIDERS: Nurse Practitioner; Visit Provider Surgery
DX: Z01.810 Encounter for preprocedural cardiovascular examination (principal); Z01.812 Encounter for preprocedural laboratory examination; K42.0 Umbilical hernia with obstruction, without gangrene
CPT/HCPCS: 36415; 80048; 85027; 93005

== ENCOUNTER 2024-10-31 11:15 | Outpatient (AMB) | payer MEDICAID, SELFPAY ==
--- NOTE | 2024-10-31 11:18 | MHC.OFFVIS ---
Vital Signs 10/31/24 11:24 Height 5 ft 11 in Weight 249 lb BMI 34.7 BP 136/84 Blood Pressure Location Rt brachial Position Sitting Pulse 98 Pulse Source Pulse Oximeter Pulse Oximetry (%) 96 Oxygen Delivery Method Room Air Intake Visit Reasons: Cologuard +; initial screening Intake Note: New pt for intial colo screening w/ + cologuard. CC; C.O chronic hemorrhoids + active hematochezia intermittently. Pt also reports having mild constipation and reports having BMs typically every 2-3 days. Pt states he used to go every day regularly. Armature Varnisher Required: Yes Armature Varnisher Services: Armature Varnisher Offered & Declined Armature Varnisher Name: [facility] (w/ provider only) Information Interpreted: clinical only Accompanied by: Self / Same As Patient Allergies No Known Allergies Allergy (Verified 09/26/24 14:45) HPI HPI Cologuard +; initial screening: Details: 44 year old? male with past medical history of anemia, LOIS, diabetes, umbilical hernia, lymphedema, varicose veins, tobacco dependence, ETOH use, opioid dependence, depression, anemia, asthma, hyperlipidemia is here today for pre colonoscopy screening.? Patient is drinking alcohol, uses heroin and cocaine at times. Patient was sent to us by his PCP.? This is his first colonoscopy screening.? Patient reports constipation, active hemorrhoids from time to time specially when he is constipated. Positive Cologuard. Patient's maternal aunt and grandmother were diagnosed with colon cancer. Denies history of difficulty with sedation or anesthesia in the past.? Patient has a history of sleep apnea. Uses CPAP occasionally. Denies any history of cardiac, renal, pulmonary, or hepatic disease.?? No history of infectious? diseases like hepatitis A, B, C, HIV or tuberculosis.? Patient is on low-dose aspirin [facility] Medical History Varicose vein of leg LOIS on CPAP DM type 2 (diabetes mellitus, type 2) Polysubstance abuse Asthma Depression 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 Surgical History History of pterygium excision History of ankle surgery Family History (Updated 10/31/24 @ 11:25 by JACK Tucker) Maternal Grandmother Colon cancer Social History Household Members Other:: mom Housing: Apartment Are you a primary personal care home administrator to a significant other at home: No Do you presently have visiting nurse or other home services: No Alcohol intake: current Alcohol intake frequency: a few times a week Alcohol type: beer and hard liquor Patient Tobacco Use Status: Current everyday Tobacco user Tobacco use type: Cigarette Cigarettes Per Day: 4 Years Smoked: 15 Substance Use Type: Crack/Cocaine and Heroin Review of Systems Const Denies weight gain and Denies weight loss ENT Reports no additional complaints, Denies dysphagia and Denies odynophagia Card Reports no additional complaints Resp Reports no additional complaints GI Denies abdominal pain, Denies belching, Denies melena, Reports bloating, Denies change in bowel habits, Reports constipation, Denies dysphagia, Denies excessive flatus, Denies dyspepsia, Denies heartburn, Denies diarrhea, Denies loose stools, Denies nausea, Denies odynophagia and Denies vomiting Reports no additional complaints Musc Reports no additional complaints Neuro Reports no additional complaints Psych Reports no additional complaints Endo Reports no additional complaints Physical Exam Vital Signs: Last Vital Signs Pulse 98 10/31/24 11:24 BP 136/84 10/31/24 11:24 Pulse Ox 96 10/31/24 11:24 Oxygen Delivery Method Room Air 10/31/24 11:24 BMI result Body Mass Index 34.7 Const General: healthy appearing, no acute distress and well developed Nutritional Appearance: well nourished and obese Orientation/consciousness: patient oriented x3 Resp Effort & Inspection: normal respiratory effort, able to speak in complete sentences, no tracheal deviation and symmetric chest movement Auscultation: clear to auscultation bilaterally Cardio Rate: regular rate GI Inspection: Yes normal to inspection, No distended and Yes obesity Palpation (GI): Soft to palpation, not firm, nontender and No hepatosplenomegaly present Auscultation: normal bowel sounds General: Yes no CVA tenderness Back/Spine/Pelvis Back: no CVA tenderness Skin General skin exam: elasticity normal, turgor normal and dry skin Neuro General: patient oriented x3 Psych Appearance: grossly normal Mental Status: mental status grossly normal Assessment & Plan Assessment & Plan (1) Screen for colon cancer: Code(s): Z12.11 - Encounter for screening for malignant neoplasm of colon (2) Positive colorectal cancer screening using Cologuard test: Code(s): R19.5 - Other fecal abnormalities Plan Patient denies any cardiac or respiratory symptoms.? However patient does report constipation and hemorrhoids. Family history of CRC. Denies any issues with anesthesia in the past.? History of sleep apnea, family history of CRC. On low-dose aspirin. ? No history infectious diseases in the past or present.? ? Patient denies melena, unintentional weight loss or ribbon like stools.? Discussed at length the pre-procedure,? prep, diet & medications as well as what to expect prior, during and after the procedure.?? Stressed the importance of good bowel prep.? Recommended the use of Vaseline or Calmoseptine OTC & baby wipes with bowel movements to promote comfort.? ?Patient verbalizes understanding and agrees to plan of care.? He was given the opportunity to ask questions and all questions answered.? We will see him after the procedure.? Medications: New bisacodyl (Dulcolax (bisacodyl)) 10 mg (2 x 5 mg) PO BEDTIME 180 tabs 4RF polyethylene glycol 3350 (Miralax) As directed by gastro[facility]ology department at [facility] 238 grams PO ONCE 238 grams 0RF Z12.11 - Encounter for screening for malignant neoplasm of colon Coding Level of Care Code New Pt Level 3 (51414) Diagnoses Screen for colon cancer Z12.11 Positive colorectal cancer screening using Cologuard test R19.5 Time Spent (min) 40 Comment 30 minutes spent with patient and additional 10 minutes spent reviewing his records
[2024-10-31 11:24] VITALS: BP 136/84; PULSE 98; O2SAT 96; BMI 34.7
--- OUTSIDE RECORDS SUMMARY | 2024-10-31 14:25 | XMS_ITS | Encounter Summary ---
Author Organization [employer] Address [address] [place] [address] [address] [place] [address] Care Team Providers Care Facilities Custodian Name Role Phone Vidya Kang NP Primary Care Provider [phone] Reason for Visit * Reason Comments Med Change Request Encounter Details Date Type Department Care Team ([facility] Contact Info) Description 01/28/2023 Refill [facility] MEDICINE [address] [place] [address] Vidya Kang NP [address] [place] [address] Alcoholism ([facility]/H[facility]) Social History Tobacco Use Types Packs/Day Years [...] AM EDT documented as of this encounter Functional Status * Over the past 2 weeks, how often have you been bothered by any of the following problems? Question Answer Date of Assessment Author Patient Health Questionnaire-2 Score 5 09/2022 1:49 PM Jim Mckeon [place] * If you checked off any problems on this questionnaire so far, Question Answer Date of Assessment Author How difficult have these problems made it for you to do your work, take care of things at home, or get along with other people? Very difficult 01/28/2023 1:49 PM Jim Mckeon M A * Over the past 2 weeks, how often have you been bothered by any of the following problems? Question Answer Date of Assessment Author Little interest or pleasure in doing things Nearly every day 01/28/2023 1:49 PM Gay Mckeon MA Feeling down, depressed, or hopeless More than half the days 01/28/2023 1:49 PM Jim Mckeon MA Trouble falling or staying asleep, or sleeping too much Nearly every day 01/28/2023 1:49 PM Jim Mckeon M A Feeling tired or having little energy Nearly every day 01/28/2023 1:49 PM Jim Mckeon M A Poor appetite or overeating Several days 01/28/2023 1:49 PM Jim Mckeon M A Feeling bad about yourself - or that you are a failure or have let yourself or your family down More than half the days 01/28/2023 1:49 PM Jim Mckeon MA Trouble concentrating on things, such as reading the newspaper or watching television More than half the days 01/28/2023 1:49 PM Jim Mckeon MA Moving or speaking so slowly that other people could have noticed? Or the opposite - being so fidgety or restless that you have been moving around a lot more than usual. Several days 01/28/2023 1:49 PM Jim Mckeon M A Thoughts that you would be better off or hurting yourself in some way Several days 01/28/2023 1:49 PM Jim Mckeon MA Patient Health Questionnaire-9 Score 18 01/28/2023 1:49 PM iJm Mckeon MA documented as of this encounter Miscellaneous Notes [...] documented as of this encounter Care Teams Facilities Custodian Relationship Specialty Start Date End Date Vidya Kang NP [address] [place] [id number] PCP - General Family Medicine 11/30/22 documented as of this encounter
--- OUTSIDE RECORDS SUMMARY | 2024-10-31 14:25 | XMS_ITS | Clinical Summary ---
Author Organization [employer] Address [address] [facility] 7[address] [place] [address] Care Team Providers Care Sanforizer Name Role Phone Vidya Kang NP Primary Care Provider [phone] Allergies No known active allergies Medications * This document contains information received from the source organization and may not represent a complete record from that organization. cholecalciferol (Vitamin D-3) 50 MCG (1999 UT) tablet Take by mouth in the morning. 2 Active Blood Pressure Monitoring (Omron 3 Series BP Monitor) device USE TO CHECK BLOOD PRESSURE DAILY 2 Active Blood Glucose Monitoring Suppl ([employer] Mercer Lite) w/Device kit TEST BLOOD SUGAR THREE TIMES DAILY 2 Active cetirizine (ZyrTEC) 10 MG tabletIndications: Seasonal allergies Take 1 tablet (10 mg) by mouth in the morning. 90 tablet 2 3 Active B Complex Vitamins (B-Complex/B-12) tablet TAKE 1 TABLET BY MOUTH EVERY DAY WITH A MEAL 90 tablet 1 3 Active ferrous gluconate (Fergon) 324 (38 Fe) MG tabletIndications: Iron deficiency anemia secondary to inadequate dietary iron intake Take 1 tablet (324 mg) by mouth every other day. 45 tablet 3 3 Active Ventolin HFA 108 (90 Base) MCG/ACT inhalerIndications :Mild intermittent asthma without complication Inhale 2 puffs every 4 (four) hours if needed for wheezing or shortness of breath. 18 g 1 3 Active naloxone (Narcan) 4 mg/0.1 mL nasal sprayIndications:U ncomplicated opioid dependence (CMS/HCC) Administer 1 spray (4 mg) into affected nostril(s) if needed for opioid reversal. 2 each 3 4 Active cloNIDine (Catapres) 0.1 MG tabletIndications: Uncomplicated opioid dependence (CMS/HCC) 1 tablet PO q8 hours prn withdrawal symptoms. 4 tablet 4 Active acamprosate (Campral) 333 MG EC tabletIndications: Alcohol use disorder 1 tablet PO BID x 1 day, then 1 pill PO TID for 2-3 days, then 2 pills PO TID. 60 tablet 4 Active ondansetron (Zofran) 4 MG tabletIndications: Uncomplicated opioid dependence (CMS/HCC) 1 tab (4 mg) PO every 8-12 hours prn nausea or vomiting. 6 tablet 4 Active buPROPion XL (Wellbutrin XL) 300 MG 24 hr tablet Take 1 tablet by mouth in the morning. 4 Active mirtazapine (Remeron) 15 MG tablet Take 1 tablet by mouth in the evening. 4 Active sertraline (Zoloft) 50 MG tablet Take 50 mg by mouth in the morning. 4 Active metFORMIN (Glucophage) 500 MG tabletIndications: Type 2 diabetes mellitus with diabetic polyneuropathy, without long-term current use of insulin ([facility]) TAKE 1 TABLET BY MOUTH TWICE DAILY IN THE MORNING AND IN THE EVENING WITH MEALS 180 tablet 1 4 Active FREESTYLE LITE test stripIndications:T ype 2 diabetes mellitus with diabetic polyneuropathy, without long-term current use of insulin ([facility]) Use to test blood sugar tid 100 each 2 4 Active Alcohol Swabs (SM Alcohol Prep) 70 % padsIndications:Ty pe 2 diabetes mellitus with diabetic polyneuropathy, without long-term current use of insulin ([facility]) Apply 1 Swab topically 3 times daily. 100 each 2 4 Active TRUEplus Lancets 33G miscIndications:Ty pe 2 diabetes mellitus with diabetic polyneuropathy, without long-term current use of insulin ([facility]) Apply 1 Units topically 3 times daily. 100 each 2 4 Active fluticasone (Flonase) 50 MCG/ACT nasal sprayIndications:N gerardo congestion Administer 1 spray into each nostril 2 times daily. Shake gently. Before first use, prime pump. After use, clean tip and replace cap. 16 g 2 5 026 Active losartan (Cozaar) 50 MG tabletIndications: Essential hypertension,Hyper lipidemia, unspecified hyperlipidemia type Take 1 tablet (50 mg) by mouth Once per day. 30 tablet 1 5 Active atorvastatin (Lipitor) 40 MG tabletIndications: Hyperlipidemia, unspecified hyperlipidemia type Take 1 tablet (40 mg) by mouth Once per day. 30 tablet 2 5 Active furosemide (Lasix) 20 MG tabletIndications: Peripheral vascular disease of lower extremity (CMS/HCC) TAKE 1 TABLET BY MOUTH EVERY MORNING 90 tablet 2 5 Active Symbicort 80-4.5 MCG/ACT inhalerIndications :Mild intermittent asthma without complication INHALE 2 PUFFS BY MOUTH TWICE DAILY IN THE MORNING AND AT BEDTIME, RINSE MOUTH AFTER USING., DO NOT SWALLOW 10.2 g 1 5 Active polyvinyl alcohol (Liquifilm Tears) 1.4 % ophthalmic solutionIndication s:Dry eyes, bilateral Administer 1 drop into both eyes if needed for dry eyes. 15 mL 3 5 Active Active Problems Problem Noted Date Diagnosed Date Positive colorectal cancer screening using Colog uard test 08/07/2024 Assessment & Plan (08/07/2024 6:07 AM EDT): -discussed in detail positive cologuard result. -informed of need to undergo colonoscopy -referred to GI placed and patient is encouraged to maintain all appointments Opioid abuse 09/30/2023 Substance use disorder 04/14/2023 [...] of doxycyline -will evaluate CRP and ESR Peripheral vascular disease of lower extremity 0 02/23/2023 Assessment & Plan (08/07/2024 6:00 AM EDT): -med refill provided Assessment & Plan (02/23/2023 12:29 PM EST): [...] Overview (02/23/2023): -goal 130/80 Assessment & Plan (08/07/2024 6:00 AM EDT): -stable -continue current regimen with losartan 50 mg -diet and lifestyle reviewed Assessment & Plan (05/22/2024 7:57 AM EDT): -approaching goal -discussed med compliance, low salt/low fat diet & routine exercise -med refills provided -follow-up 3 months Assessment & Plan (02/23/2023 12:20 PM EST): -BP not at goal, but stable today 134/78 -continue losartan 50 mg every day -low salt diet advised Lymphedema 06/03/2021 Type 2 diabetes mellitus 06/03/2021 Assessment & Plan (08/07/2024 6:07 AM EDT): -most recent A1c down to 6.4% as of 05/21 POCT glucose 124 mg/dL -continue metformin 500 mg two times daily -microalbumin stable as of 11/2023. 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 02/10/2015 Opioid dependence 09/07/2011 Assessment & Plan (12/29/2023 11:48 AM EST): -advised patient to get reconnected with [facility] for continued treatment Resolved Problems Problem Noted Date Diagnosed Date Resolved Date Routine adult health maintenance 02/23/2023 08/07/2024 Assessment & Plan (02/23/2023 12:33 PM EST): -flu vaccine received today -declined COVID vax -addiction cessation encouraged: will connect with [facility] -needs vision care: will address at next visit -called dental to see patient urgently today -will completed diabetic foot exam at next visit Overweight 10/27/2016 08/07/2024 Encounters Date Type Department Care Team Description 10/10/2024 9:00 AM EDT Office Visit [facility] [address] [place] [address] Esteban, Ann-Marie, OD Presbyopia (Primary Dx) 10/10/2024 Travel 08/28/2024 2:30 PM EDT Office Visit [facility] [address] [place] [address] Katherine, Padmini, OD Type 2 diabetes mellitus without ophthalmic manifestations (CMS/HCC) (Primary Dx); Dry eyes, bilateral; Presbyopia 08/28/2024 Travel from Last 3 Months Immunizations Immunization Administration Dates Next Due Hep A / [...] 85 07/02/2024 2:16 PM EDT Temperature 37 C (98.6 F) 07/02/2024 2:16 PM EDT Respiratory Rate 20 07/02/2024 2:16 PM EDT Oxygen Saturation 98% 07/02/2024 2:16 PM EDT Inhaled Oxygen Concentration - - Weight 114 kg (251 lb 3.2 oz) 07/02/2024 2:16 PM EDT Height 180.3 cm (5' 11 ) 07/02/2024 2:16 PM EDT Body Mass Index 35.04 07/02/2024 2:16 PM EDT Plan of Treatment Health Maintenance Due Date Last Done Comments CT Colonography 1978 Colonoscopy 1978 FIT 1978 Sigmoidoscopy 1978 Family Planning (PISQ) 1993 Dental Oral Exam 03/12/2016 09/09/2015, 06/11/2014 Dental X-Ray: Full Mouth 06/12/2017 06/11/2014 Dental Prophylaxis 03/04/2018 08/31/2017, 0 03/02/2017, 03/23/2016, Additional history exists Dental X-Ray: Bitewings 09/01/2018 09/01/19 18, 09/09/2015, 06/11/2014 Diabetes: Foot Exam 09/29/2024 09/30/2023, 09/30/2023, 09/30/2023, Additional history exists COVID-19 Vaccine ( season) 2024 08/15/2020 Influenza Vaccine (#1) 2024 3, 12/15/2021, 04/03/2014, Additional history exists Depression Monitoring 11/20/2024 05/21/2024, 025 Diabetes: Hemoglobin A1C 11/20/2024 025, 09/30/2023, 01/28/2023, Additional history exists Diabetes: Urine Protein Screening 11/22/2024 11/23/2023, 02/01/2023, 11/13/2021, Additional history exists SDOH Screening 04/27/2025 04/27/2024 Alcohol/Substance Use Screening 05/21/2025 05/21/2024 Disability Screening 05/21/2025 05/21/2024 FOBT 06/05/2025 06/05/2024 Lipid Panel 07/02/2025 07/02/2024, 1003/2023, 02/01/2023, Additional history exists Tobacco Screening 08/28/2025 08/28/2024 Eye Exam 08/28/2026 08/28/2024, 09/2024, 08/28/2024, Additional history exists Colorectal Cancer Screening 06/06/2027 FIT DNA/Cologuard 06/06/2027 06/05/2024 Zoster Vaccines (1 of 2) 2028 DTaP/Tdap/Td Vaccines (3 - Td or Tdap) 04/19/2032 04/19/2022, 01/21/2012, 03/19/2009 RSV Patients and Patients Aged 60 years or older (1 - 1-dose 75+ series) 2053 Pneumococcal Vaccine: Pediatrics (0 to 5 Years) and At-Risk Patients (6 to 49) Years Completed 04/19/2022, 09/08/2019 HIV Screening Completed 02/01/2023, 0 10/2021, 06/25/2020 Hepatitis C Screening Completed 02/01/2023, 021 [...] patient's age to complete this topic Meningococcal B Vaccine Aged Out No l onger eligible based on patient's age to complete [...] Procedure Name Priority Date/Time Associated Diagnosis Comments LIPID PANEL, STANDARD Routine 07/02/2024 2:44 PM EDT Type 2 diabetes mellitus without complication, without long-term current use of insulin ([facility]) Essential hypertension LAB COLOGUARD COLON CANCER SCREEN Routine 06/05/2024 4:30 PM EDT Screening for colon cancer POCT GLYCATED HEMOGLOBIN, TOTAL Routine 05/21/2024 2:19 PM EDT Type 2 diabetes mellitus without complication, without long-term current use of insulin ([facility]/HCC) ALBUMIN, RANDOM URINE W/CREATININE Routine 11/23/2023 12:15 PM EDT Type 2 diabetes mellitus with diabetic peripheral angiopathy without gangrene, without long-term current use of insulin ([facility]/HCC) HEPATITIS C AB W/REFL TO HCV RNA, [...] Recently Relevant to Health Maintenance Results * (ABNORMAL) Lipid Panel, Standard (07/02/2024 2:44 PM EDT) Triglycerides 164(H) <150 mg/dL [facility] Comment:Desirable Triglyceri de: less than 150 mg/dLBorderline High Triglyceride 150-199 mg/dLHigh Triglyceride: 200-499 mg/dLVery High Triglyceride: greater than or equal to 5OO mg/dL Cholesterol 252(H) <200 mg/dL [facility] Comment:Desirable Cholestero l: less than 200 mg/dLBorderline High Cholesterol: 200-239 mg/dLHigh Cholesterol: greater than 239 mg/dL LDL Cholesterol Calculated 153(H) <100 mg/dL [facility] Comment:Desirable LDL: less than 100 mg/dLNear Optimal/Above Optimal LDL: 110- 129 mg/dLBorderline High LDL: 130-159 mg/dLHigh LDL: 160-189 mg/dLVery High LDL: greater than or equal to 190 mg/dL HDL Cholesterol 67 >40 mg/dL [facility] Comment:Desirable HDL: great er than 40 mg/dL Note: This HDL assay may give artificially low results in patients with liver disease. Blood Venous blood specimen / Unknown 07/02/2024 2:44 PM EDT 07/02/2024 4:04 PM EDT Vidya Kang NP LAB BLOOD ORDERABLES Final Resu lt [facility] [address] [place] [phone] * (ABNORMAL) Cologuard?? colon cancer screening (06/05/2024 4:30 PM EDT) Cologuard Result Positive( A) Negative 06/13/2024 8:32 PM EDT [facility] ([facility]) (CLIA #:[id number]) Comment: The Cologuard (TM) test was performed on this specimen. POSITIVE TEST RESULT. A positive Cologuard result should be followed with a colonoscopy or visual examination of the colon. The normal value (reference range) for this assay is negative. TEST DESCRIPTION: Composite algorithmic analysis of stool DNA-biomarkers with hemoglobin immunoassay. Quantitative values of individual biomarkers are not [...] screened with both Cologuard and colonoscopy. (Isaiah Martin et al, N Engl J Med 2014;370(14):4533-5462.) Cologuard may produce a false negative or false positive result (no colorectal cancer or precancerous polyp present at colonoscopy follow up). A negative Cologuard test result does not guarantee the absence of CRC or advanced adenoma (pre-cancer). The current Cologuard screening interval is every 3 years. ([employer] Society and U.S. Multi-Society Task Force). Cologuard performance data in a 10,000 patient pivotal study using colonoscopy as the reference method can be accessed at the following location: www.[employer]/results. Additional description of the Cologuard test process, warnings and precautions can be found at www.[email or web address].com. Stool specimen (specimen) 06/05/2024 4:30 PM EDT 06/08/2024 10:51 AM EDT us Vidya Kang SCENIC ARTS SUPERVISOR LAB MOLECULAR DIAGNOSTICS ORDER [place] Final Result [facility] ([facility] (CLIA #:[id number]) [address] [place] [address], * (ABNORMAL) POCT HGB A1C (05/21/2024 2:19 PM EDT) Hemoglobin A1C 6.4(A) 4.0 - 6.0 % QC Media Lot # [id number] Lot# Expiration Date 426 Blood 05/21/2024 2:19 PM EDT Vidya Kern SCENIC ARTS SUPERVISOR POINT OF CARE TEST ENTER/EDIT O RDERABLES Final Result * Albumin, Random Urine W/Creatinine (11/23/2023 12:15 PM EDT) Creatinine, Urine 182.54 mg/dL [facility] Microalbumin Urine 18.0 mg/L [facility] Microalbum Creatinine Ratio Ur 9.8 <30 ug/mg cr [facility] Comment:Albumin/Creatinine R atio Reference Ranges: Normal: < 30 ug/mg creatinine Microalbuminuria: 30 - 300 ug/mg creatinineClinical Albuminuria: > 300 ug/mg creatinine Urine (Urine, Random) 11/23/2023 12:15 PM EDT 11/23/2023 1:29 PM EDT Vidya Kern SCENIC ARTS SUPERVISOR LAB URINE ORDERABLES Final Resu lt Performing Organization Address [facility] Co de Phone Number [facility] [address] [place] [address] [phone] * Hepatitis C Antibody with Reflex to HCV, RNA, Quantitative, Real-Time PCR (02/01/2023 11:46 AM EST) Hepatitis C Antibody Nonreactive Nonreactive [facility] Comment:Antibodies to HCV no t detected; does not exclude early acuteHCV infection. 02/01/2023 11:4 6 AM EST 02/01/2023 1:33 PM EST Generic External Data Provider LAB BLOOD ORDERAB LES Final Result [facility] [address] [place] [address] [phone] * HIV-1/2 Antigen and Antibodies, Fourth Generation, with Reflexes (02/01/2023 11:46 AM EST) HIV AB/AG Nonreactive Nonreactive [facility] Comment:HIV-1 p24 Ag and/or HIV-1/HIV-2 Ab not detected.A test result that is nonreactive does not exclude thepossibility of exposure to or infection with HIV-1 and/orHIV-2. Nonreactive results in this assay for individualswith prior exposure to HIV-1 and/or HIV-2 may be due toantigen and antibody levels that are below the limit ofdetection of this assay.The [employer] HIV Ag/Ab Combo assay result andsupplemental assay results should be interpreted inconjunction with the patient's clinical presentation,history and other laboratory results. If the results areinconsistent with clinical evidence, additional testing issuggested to confirm the result. 02/01/2023 11:4 6 AM EST 02/01/2023 1:33 PM EST us Generic External Data Provider LAB BLOOD ORDERAB LES Final Result [facility] [address] [place] [address] [phone] from Last 3 Months or Most Recently Relevant to Health Maintenance Insurance HSN FULL [facility] C3 DENTAL-[facility] MEDICAID STAND ADULT Care Teams Sanforizer Relationship Specialty Start Date End Date Vidya Kang NP [address] [place] [address] PCP - General Family Medicine 11/30/22
--- OUTSIDE RECORDS SUMMARY | 2024-10-31 14:25 | XMS_ITS | Encounter Summary ---
Author Organization [email or web address] Address [address] [place] [address] [address] [place] [address] Care Team Providers Care Call Center Receptionist Name Role Phone Vidya Kang NP Primary Care Provider Reason for Visit * Reason Onset Date Comments Referral 07/25/2024 Encounter Details Date Type Department Care Team ([facility] st Contact Info) Description 07/25/2024 Telephone [facility] [address] [place] [address] Vidya Kang NP [address] [place] [address] Referral Social History Tobacco Use Types Packs/Day [...] any questions you can contact pt at [phone]. (Japanese Speaker) documented in this encounter Plan of Treatment Not on file documented as of this encounter Visit Diagnoses Not on filedocumented in this encounter Additional Health Concerns Assessment Noted Time PHQ-9 Depression Total Score: 21 025 2:56 PM EDT documented as of this encounter Care Teams Call Center Receptionist Relationship Specialty Start Date End Date Vidya Kang NP [address] [place] [address] PCP - General Family Medicine 11/30/22 documented as of this encounter
--- OUTSIDE RECORDS SUMMARY | 2024-10-31 14:25 | XMS_ITS | Encounter Summary ---
Author Organization [employer] Address [address] [facility] [address] [place] [address] Care Team Providers Care Machine Egg Washer Name Role Phone Vidya Kang NP Primary Care Provider [phone] Reason for Visit * Reason Comments Med Refill Encounter Details Date Type Department Care Team ([facility] st Contact Info) Description 03/13/2024 Refill [facility] [address] [place] [address] Vidya Kang NP [address] [place] [address] Peripheral vascular disease of lower extremity (CMS/HCC) [...] documented as of this encounter Care Teams Machine Egg Washer Relationship Specialty Start Date End Date Vidya Kang NP [address] [place] [phone] PCP - General Family Medicine 11/30/22 documented as of this encounter
--- OUTSIDE RECORDS SUMMARY | 2024-10-31 14:25 | XMS_ITS | Encounter Summary ---
Author Organization [employer] Address [address] [facility] [address] [place] [address] Care Team Providers Care Correspondent Name Role Phone Vidya Kang NP Primary Care Provider [phone] Encounter Details Date Type Department Care Team ([facility] st Contact Info) Description 02/11/2023 Orders Only [facility] MEDICINE [address] [place] [address] Vidya Kang NP [address] [place] [address] Alcoholism (CMS/HCC) (Primary Dx) Social History Tobacco [...] as of this encounter Plan of Treatment Not on file documented as of this encounter Visit Diagnoses Diagnosis Alcoholism (CMS/[facility])- Primary Other and unspecified alcohol dependence, unspecified drinking behavior documented in this encounter Additional Health Concerns Assessment Noted Time PHQ-9 Depression Total Score: 18 023 1:49 PM EST documented as of this encounter Care Teams Correspondent Relationship Specialty Start Date End Date Vidya Kang NP [address] [place] [phone] PCP - General Family Medicine 11/30/22 documented as of this encounter
--- OUTSIDE RECORDS SUMMARY | 2024-10-31 14:25 | XMS_ITS | Encounter Summary ---
Author Organization [employer] Address [address] [facility] [address] [place] [address] Care Team Providers Care Quality Officer Name Role Phone Vidya Kang NP Primary Care Provider [phone] Encounter Details Date Type Department Care Team ([facility] st Contact Info) Description 03/03/2023 Abstract [facility] [address] [place] [address] Vidya Kang NP [address] [place] [address] Social History Tobacco Use Types Packs/Day Years [...] documented as of this encounter Care Teams Quality Officer Relationship Specialty Start Date End Date Vidya Kang NP [address] [place] [address] PCP - General Family Medicine 11/30/22 documented as of this encounter
--- OUTSIDE RECORDS SUMMARY | 2024-10-31 14:25 | XMS_ITS | Encounter Summary ---
Author Organization [employer] Address [address] [place] [address] 7 [place] [address] Care Team Providers Care Value Stream Leader Name Role Phone Gisela Figueroa Rocio PERSONNEL ADMINISTRATOR Primary Care Provider Vidya Andrews DOOR TENDER Primary Care Provider [phone] Encounter Details Date Type Department Care Team (Late st Contact Info) Description 02/26/2022 Orders Only [facility] [address] [place] [address] Marisol Espinosa RN [address] [place] [address] Social History Tobacco Use Types Packs/Day Years [...] on file documented as of this encounter Procedures Procedure [...] SENSITIVITY TROPONIN I (03/08/2022 1:04 PM EST) [facility] TROPONIN I HIGH SENSITIVITY <3.5 <3.5 - 35.0 ng/L [facility] Comment:The Ragland high sens itivity Troponin-I results should beused in conjunction with other diagnostic information suchas ECG, clinical observations and information, and patientsymptoms to aid in the diagnosis of [place]. 03/08/2022 1:04 PM EST 03/08/2022 1:08 PM EST [facility] External Provider LAB BLO OD ORDERABLES Final Result [facility] [address] [place] [address] [phone] * (ABNORMAL) CBC auto differential (03/08/2022 1:04 PM EST) [facility] White Blood Count 9.5 4.8 - 10.8 X10*3/uL [facility] Red Blood Count 4.29(L) 4.60 - 5.80 X10*6/uL [facility] Hemoglobin 12.9(L) 14.0 - 18.0 g/dl [facility] Hematocrit 38.5(L) 42.0 - 52.0 % [facility] Mean Corpuscular Volume 89.7 80.0 - 98.0 fL [facility] Mean Corpuscular Hemoglobin 30.1 27.0 - 33.0 pg [facility] Mean Corpuscular HGB Conc 33.5 31.0 - 36.0 g/dl [facility] Red Cell Distribution Width 12.8 11.0 - 16.0 % [facility] Platelet Count 210 160 - 400 X10*3/uL [facility] Mean Platelet Volume 10.2 9.4 - 12.4 fL [facility] Neutrophils Percent Auto 63.2 45 - 73 % [facility] Imm Gran Pct Auto 0.5(H) 0.0 - 0.4 % [facility] Lymphocytes Percent Auto 19.3(L) 20 - 40 % [facility] Monocytes Percent Auto 9.6 2 - 11 % [facility] Eosinophils Percent Auto 6.7(H) 0 - 4 % [facility] Basophils Percent Auto 0.7 0 - 2 % [facility] NRBC Pct Auto 0.0 0.0 - 0.2 /100WBC [facility] Neutrophils Absolute Auto 6.0 2.0 - 8.3 x10*3/uL [facility] Imm Gran Abs Auto 0.05(H) 0.00 - 0.03 X10*3/uL [facility] Lymphocytes Absolute Auto 1.8 1.2 - 4.9 X10*3/uL [facility] Monocytes Absolute Auto 0.9 0.1 - 1.2 X10*3/uL [facility] Eosinophils Absolute Auto 0.6(H) 0.0 - 0.4 X10*3/uL [facility] Basophils Absolute Auto 0.1 0.0 - 0.2 X10*3/uL [facility] NRBC Abs Auto 0.000 0.0 - 0.012 X10*3/uL [facility] 03/08/2022 1:04 PM EST 03/08/2022 1:08 PM EST [facility] External Provider LAB BLO OD ORDERABLES Final Result [facility] [address] [place] [phone] * B Type Natriuretic Peptide (BNP) (03/08/2022 1:04 PM EST) B Type Natriuretic Peptide <10 <100 pg/mL [facility] Comment:For those patients w ho are being treated with Natrecor(nesiritide, recombinant BNP), BNP testing should beperformed at least two hours post treatment in order toensure that only endogenous levels of BNP are detected. 03/08/2022 1:04 PM EST 03/08/2022 1:08 PM EST [facility] External Provider LAB BLO OD ORDERABLES Final Result [facility] [address] [place] [phone] * (ABNORMAL) Comprehensive Metabolic Panel (03/08/2022 1:04 PM EST) Sodium 137 135 - 145 mmol/L [facility] Potassium 4.3 3.3 - 5.1 mmol/L [facility] Chloride 104 96 - 108 mmol/L [facility] Carbon Dioxide 25 22 - 29 mmol/L [facility] Anion Gap 12 12 - 20 [facility] Urea Nitrogen (BUN) 13 9 - 16 mg/dL [facility] Creatinine, Serum 0.78 0.5 - 1.4 mg/dL [facility] Creatinine Clr Calc Pharmacy 158.5 [facility] Comment:eGFR (calculated fro m the MDRD study equation) and eCrCl(calculated from the Cockcroft-Gault equation) are based ondifferent parameters and may not yield comparable results.If eCrCl result is absurd, please check patient'sheight/weight. Estimated Glomerular Filt Rate >60 [facility] Comment:NOTE: For -Am erican individuals, multiply the result by 1.210.Chronic Kidney Disease: Estimated GFR < 60 mL/min/1.03r2Bifwir Kidney Disease: Estimated GFR < 15 mL/min/1.73m2 Glucose 143(H) 60 - 115 mg/dL [facility] Calcium 9.1 8.4 - 10.2 mg/dL [facility] Bilirubin, Total 0.4 0.0 - 1.0 mg/dL [facility] Aspartate Amino Transferase 17 5 - 37 U/L [facility] Alanine Aminotransferase 18 0 - 40 U/L [facility] Total Protein 7.3 6.5 - 8.0 g/dL [facility] Albumin Level 4.1 3.5 - 5.0 g/dL [facility] Alkaline Phosphatase 94 39 - 117 U/L [facility] 03/08/2022 1:04 PM EST 03/08/2022 1:08 PM EST [facility] External Provider LAB BLO OD ORDERABLES Final Result Performing Organization Address [facility] Co de Phone Number [facility] [address] [place] [phone] * APTT (03/08/2022 1:04 PM EST) Partial Thromboplastin Time 29.7 26.0 - 36.4 SEC [facility] 03/08/2022 1:04 PM EST 03/08/2022 1:08 PM EST [facility] External Provider LAB BLO OD ORDERABLES Final Result Performing Organization Address [facility] Phone Number [facility] [address] [place] [phone] * Prothrombin Time-INR (03/08/2022 1:04 PM EST) Prothrombin Time 10.9 10.0 - 13.1 SEC [facility] INTERNATIONAL NORM RATIO 1.0 0.9 - 1.1 [facility] Comment:INTERNATIONAL NORMAL IZED RATIO (INR) [...] 1:04 PM EST 03/08/2022 1:08 PM EST [facility] External Provider LAB BLO OD ORDERABLES Final Result Performing Organization Address [facility] Co de Phone Number [facility] [address] [place] [address] [phone] * SARS-CoV-2 RNA, Influenza A/B, and RSV RNA, Ql NAAT (03/08/2022 12:35 PM EST) Influenza A PCR NEGATIVE Negative [facility] Influenza B PCR NEGATIVE Negative [facility] Resp Syncy Virus RNA Qual PCR NEGATIVE Negative [facility] SARS COV2 PCR NEGATIVE Negative [facility] SARS/Flu/RSV Note See Note [facility] Comment:All test results mus t [...] use by authorized laboratories.Testing performed on the [employer] GeneXpert utilizingreal-time RT-PCR.All SARS CoV2 and positive influenza A/B results arereported to [facility]. 03/08/2022 12:3 5 PM EST 03/08/2022 12:39 PM EST [facility] Exter nal Provider LAB MICROBIOLOGY - GENERAL ORDERABLES Final Result Performing Organization Address [facility]/ZIP Co de Phone Number [facility] [address] [place] [phone] documented in this encounter Visit Diagnoses Not on filedocumented in this encounter Care Teams Value Stream Leader Relationship Specialty Start Date End Date Gisela Figueroa FNP PCP - General Family Medicine 02/09/21 11/29/22 Vidya Kang NP [address] [place] [phone] PCP - General Family Medicine 11/30/22 documented as of this encounter
== END 2024-10-31 11:53 | disposition home or self-care (01) ==
LOC: HO.HGI 11:16
PROVIDERS: Visit Provider Nurse Practitioner Family
DX: Z01.818 Encounter for other preprocedural examination (principal); Z12.11 Encounter for screening for malignant neoplasm of colon; R19.5 Other fecal abnormalities
CPT/HCPCS: 99203

== ENCOUNTER → 2024-10-31 11:15 | Outpatient (BNVA) | payer MEDICAID, SELFPAY | PROVIDERS: Visit Provider Nurse Practitioner Family | DX: Z12.11 Encounter for screening for malignant neoplasm of colon (principal); R19.5 Other fecal abnormalities | CPT/HCPCS: 99212 ==